=== PATIENT | male | born 1965 | race Caucasian/White ===

== ENCOUNTER 2020-01-06 09:45 | Outpatient (REF) | payer BC, SELFPAY ==
[2020-01-06 14:12] LABS: Abs Immature Grans 0.02 k/cumm (0.0-0.09); Absolute Basophil Count 0.04 k/cumm (0.0-0.2); Absolute Eosinophil Count 0.26 k/cumm (0.0-0.7); Absolute Lymphocyte Count 2.54 k/cumm (1.2-3.4); Absolute Monocyte Count 1.03 k/cumm (0.11-0.7); Basophils % 0.5; Eosinophils % 3.4; HCT 47.2 % (40.0-50.0); HGB 16.1 g/dL (13.5-17.5); Immature Grans % 0.3 %; Lymphocytes % 33.5; Mean Corp. HGB Concentration 34.1 g/dL (32.0-36.0); Mean Corpuscular Hemoglobin 31.7 pg (27.0-33.0); Mean Corpuscular Volume 92.9 fL (80-95); Mean Platelet Volume 11.3 fL (8.0-11.0); Monocytes % 13.6; Neutrophils % 48.7; Platelet Count 273 x1000/uL (130-400); RBC 5.08 m/cumm (4.50-6.00); RBC Distribution Width 12.7 % (11.8-14.1); White Blood Cell Count 7.59 k/cumm (4.4-10.8)
[2020-01-06 14:31] LABS: ALT 49 U/L (16-63); AST 25 U/L (15-37); Albumin 4.1 g/dL (3.4-5.0); Alkaline Phosphatase 61 U/L (46-116); BUN 13 mg/dL (7-18); Bilirubin, Total 0.4 mg/dL (0.2-1.0); Calcium 9.3 mg/dL (8.5-10.1); Calculated LDL 181 mg/dL (<100); Chloride 106 mmol/L (98-107); Cholesterol 249 mg/dL (<200); Glucose 91 mg/dL (74-106); HDL Cholesterol 39 mg/dL (40-60); Magnesium 2.1 mg/dL (1.8-2.4); Potassium 4.2 mmol/L (3.5-5.1); Sodium 139 mmol/L (136-145); TSH (W/Ref FT4) 2.12 uIU/mL (0.36-3.74); Total Protein 7.7 g/dL (6.4-8.2); Triglyceride 146 mg/dL (<150)
[2020-01-06 15:04] LABS: COMMENT (LAB VIEW ONLY) 244.64 mg/dL
[2020-01-06 15:17] LABS: Microalb ug/mg Crea 104.5 ug/mg Cr
[2020-01-07 14:30] LABS: COVID-19 RT-PCR UVMMC Result Negative (Negative)
== END 2020-01-06 10:05 ==
LOC: NCHCN 09:45
PROVIDERS: PCP Nurse Practitioner; Visit Provider Nurse Practitioner Family
DX: I10 Essential (primary) hypertension (principal); R06.09 Other forms of dyspnea; R68.89 Other general symptoms and signs; Z11.59 Encounter for screening for other viral diseases
CPT/HCPCS: 80053; 80061; U0003; 82043; 82570; 83735; 84443; 85025

== ENCOUNTER 2020-01-16 00:45 | Outpatient (CLI) | payer BC, SELFPAY ==
--- NOTE | 2020-01-16 | DI.US_ITS ---
APPROVED REPORT EXAM: Comprehensive 2D, Doppler, and color-flow Echocardiogram Patient Location: Out-Patient Hand Mica Plate Layer: Malena Solano RDCS (AE) Indications: Dyspnea, Abnormal EKG Echo Enhancing Agent Indication: Rule out thrombus Agent(s) / Amount(s) Used: Definity 1.5 cc Other Information Study Quality: Adequate Conclusion Left Ventricle : The left ventricle is normal size. Left ventricular systolic function is moderately decreased. There is global hypokinesis. There is normal left ventricular wall thickness. Diastolic function was not fully evaluated. LVEF is 39%. There is no evidence of apical thrombus with Definity. Right Ventricle : The right ventricle is normal size. The right ventricular systolic function is norm al. The RVSP is 24.3mmHg. Atria : The left atrium size is normal. The right atrium size is normal. Aortic Valve : Aortic valve is trileaflet. There is no aortic valvular stenosis. Trace to mild aortic regurgitation. Mitral Valve : The mitral valve is normal in structure. No evidence of mitral valve stenosis. Mild mi tral regurgitation. Please see remainder of study for further details. Compared to echocardiogram from March 2015: The patient's ejection fraction has decreased from marquise l to moderately reduced. Wall motion Left Ventricle The left ventricle is normal size. Left ventricular systolic function is moderately decreased. There is normal left ventricular wall thickness. There is global hypokinesis. Diastolic function was not fu lly evaluated. There is no ventricular septal defect visualized. There is no evidence of apical throm bus with Definity. LVEF is 39%. Right Ventricle The right ventricle is normal size. The right ventricular systolic function is normal. The RVSP is 24 .3mmHg. Atria The left atrium size is normal. The right atrium size is normal. The interatrial septum is intact wit h no evidence for an atrial septal defect. Aortic Valve Aortic valve is trileaflet. There is no aortic valvular stenosis. Trace to mild aortic regurgitation. Mitral Valve The mitral valve is normal in structure. No evidence of mitral valve stenosis. Mild mitral regurgitat ion. Tricuspid Valve The tricuspid valve is normal in structure. There is no tricuspid valve stenosis. Trace tricuspid reg urgitation. Pulmonic Valve The pulmonary valve is normal in structure. There is no pulmonic valvular stenosis. Trace pulmonic re gurgitation. Great Vessels The aortic root is normal in size. The ascending aorta is normal in size. Not well visualized Pericardium There is no pericardial effusion. 2D Dimensions IVSD d PLAX 1.13 cm M: 0.6-1.2 LV Vol A2C d MOD 151.0 mL LVPW d PLAX 1.12 cm M: 0.6 - 1.2 LV Vol A4C d MOD 209.8 mL LVID d PLAX 5.48 cm M: 4.2 - 5.8 LA vol/ BSA A2C s A-L 23.7 mL/m2 LVDs 4.65 cm M: 2.5 - 4.0 LA vol/ BSA A4C s A-L 23.5 mL/m2 Ao Root d 2.53 cm M: 3.1 - 3.7 LA Vol/ BSA Biplane s A-L 23.8 mL/m2 RA Area A4C 13.38 cm2 LA Area A4C s MOD 18.27 cm2 RA Vol/ BSA A4C s A-L 14.0 mL/m2 LA Area A2C s MOD 18.45 cm2 Ao Asc Diam d 3.21 cm M: 2.6 - 3.4 LV EF A4C MOD 39.8 % LV EF Teichholz 30.3 % LV EF A2C MOD 39.1 % LVEF (Erwin's) 41.52 % M: 52 - 72 LV EF Biplane MOD 41.5 % LV Volume 131.76 mL M: 62 - 150 SV 76.91 mL LV Volume Index 55.83 mL/m2 M: 34 - 74 SV Index 32.51 mL/m2 LV Vol Biplane MOD 185.2 mL FS 14.40 % LV Diastology E/A Ratio 0.8 MV E Vmax 0.73 (0.4-1.3 m/s) MV A Vmax 0.95 (0.4-1.3 m/s) MV E/A Ratio 0.74 Aortic Valve LVOT Area 2.94 cm2 AoV Area Vmax 2.79 cm2 LVOT Vmax 0.98 m/s AoV Area/ BSA (Vmax) 1.18 cm2/m2 LVOT Mean Mario. 0.63 m/s INGRID Mean Mario. 2.37 cm2 LVOT Peak Grad 3.8 mmHg INGRID Mean Mario. Index 1.00 cm2/m2 LVOT Mean Grad 1.9 mmHg AR DT 992 msec LVOT VTI 0.156 m AR PHT 288 msec LVOT Diam s 1.90 cm AoV Vmax 1.03 m/s Velocity Ratio 0.95 AoV Mean Mario. 0.78 m/s AoV Peak Grad 4.3 mmHg LVOT SV 45.91 mL AoV Mean Grad 2.6 mmHg AoV VTI 0.163 m AoV Area VTI 2.82 cm2 AoV Area/ BSA (VTI) 1.19 cm/m2 Mitral Valve MV DT 147 (160-240 msec) MR Vmax 5.45 m/s MV PHT 43 msec MR VTI 1.671 m MV Area PHT 5.15 cm2 MR Peak Grad 118.9 mmHg MR Mean Grad 82.0 mmHg MR PISA Radius 0.40 cm MR EROA 0.06 cm2 MR Aliasing Velocity 0.35 m/s MR PISA 1.00 cm2 Pulmonary Valve PV Vmax 0.92 (0.5-1.5 m/s) RVOT Peak Gr. 1.53 mmHg PV Peak Grad 3.4 mmHg RVOT Mean Gr. 0.75 mmHg PV Mean Grad 1.8 mmHg RVOT VTI 0.100 m PV VTI 0.156 m RVOT Vmax 0.62 m/s Tricuspid Valve TR Peak Grad 21.2 mmHg TR Vmax 2.31 m/s RA Pressure 3.00 mmHg RVSP (TR) 24.3 mmHg
--- NOTE | 2020-01-16 09:00 | ETT_ITS ---
APPROVED REPORT Exam: Exercise Treadmill Patient Location: Out-Patient Room/Bed: Stress Nurse: Dina Guerrero RN BMI: 32.97 Baseline Rhythm: Sinus Rhythm Indications: Patient reports mild chest ???tightness??? with activity associated with right arm numbn ess over the last 6 months, nocturnal dyspnea and shortness of breath with activity over the last thu. Medical History Medical History: GERD, Castellon???s Esophagus, Cardiac Medications: Losartan/Hydrochlorothiazide, Aspirin, Amlodipine. Allergies: Penicillin. Cardiac Risk Factors: FHX of CAD, HTN, Hyperlipidemia Previous Cardiac Procedures: None Pretest Chest Pain Characteristics: None Exercise History: Physically active Physical Disabilities: None Lung Sounds: Clear to auscultation Heart Sounds: Irregular Stress Test Details Test: Exercise stress testing was performed using a Raffi protocol. Rest Stress HR Resting HR Supine: 88 bpm Max Heart Rate (APMHR): 164 bpm Resting HR Standin bpm Target HR (85% APMHR): 139 bpm Max HR Achieved: 146 bpm % of APMHR: 89 HR response to stress: Normal HR response to stress BP Resting BP Supine: 158/102 mmHg Resting BP Standin/106 mmHg Max BP: 194/100. mmHg BP response to stress: Normal blood pressure response to stress. ECG Resting ECG: Sinus Rhythm Ectopy: Frequent PVC's Stress ECG: Sinus Tachycardia ST Change: Normal Arrhythmia: VPC's Recovery ECG: Sinus Rhythm Recovery ST Change: Normal Recovery Arrhythmia: VPC Clinical Reason for Termination: Fatigue, Dyspnea Stress Symptoms: None reported per patient. Exercise duration: 8 min1 sec Highest Stage Reached: Stage 3: 3.4 mph at 14% grade. Exercise capacity: 10.16 METs Functional Capacity: Average Capacity Stress ECG Conclusion 1. Patient exercised for 8 minutes. 10 METS. Rate-pressure product was 25,000. 2. Patient no symptoms suggestive of ischemia. Patient had frequent PVCs at baseline which continued through exercise and recovery. 3. There were no ST changes suggestive of ischemia during the exercise portion of this exam. 4. The Campos Score (8) estimates an annual cardiovascular mortality of 0% and a five year survival of 95%. Using the Campos Score there is a low probability of any angiographic coronary disease. Stress Test Summary STAGE Time (mins) Speed (mph) Grade (%) HR BP SYMPTOMS METS Supine 88 158/102 Standing 101 156/106 1 3 1.7 10 126 162/110 4.6 2 6 2.5 12 138 172/112 7 1 min recovery 130 194/100 3 min recovery 111 180/104 6 min recovery 104 166/100
[2020-01-16] MEDS: Perflutren Lipid Microspheres 1.5 ML VIAL IVP (15:20)
[2020-01-16] MEDS: Normal Saline Flush 10 ML SYR 8 ML IVP (15:22)
== END 2020-01-16 01:05 ==
PROVIDERS: PCP Nurse Practitioner Family; Visit Provider Nurse Practitioner Family
DX: R06.09 Other forms of dyspnea (principal); R07.89 Other chest pain; R94.31 Abnormal electrocardiogram [ECG] [EKG]; I10 Essential (primary) hypertension; R06.02 Shortness of breath; E78.5 Hyperlipidemia, unspecified; I49.3 Ventricular premature depolarization; I35.1 Nonrheumatic aortic (valve) insufficiency; Z82.49 Family history of ischemic heart disease and other diseases of the circulatory system
CPT/HCPCS: C8929; 93017

== ENCOUNTER 2020-02-06 09:00 | Outpatient (REF) | payer BC, SELFPAY ==
[2020-02-06 16:41] LABS: Anion Gap 10.9 mmol/L (3-11); BUN 20 mg/dL (7-18); CO2 26.1 mmol/L (21.0-32.0); CREATININE 1.05 mg/dL (0.70-1.30); Calcium 9.7 mg/dL (8.5-10.1); Chloride 103 mmol/L (98-107); Glucose 85 mg/dL (74-106); Potassium 4.1 mmol/L (3.5-5.1); Sodium 140 mmol/L (136-145)
[2020-02-06 17:21] LABS: Hemoglobin A1C 5.5 % (3.8-5.6)
== END 2020-02-06 09:20 ==
LOC: NCHCN 09:00
PROVIDERS: PCP Nurse Practitioner Family; Visit Provider Nurse Practitioner Family
DX: R73.03 Prediabetes (principal); I50.9 Heart failure, unspecified; I10 Essential (primary) hypertension; F10.10 Alcohol abuse, uncomplicated
CPT/HCPCS: 80048; 83036

== ENCOUNTER 2020-02-10 01:57 | Outpatient (CLI) | payer BC, SELFPAY ==
--- NOTE | 2020-03-15 10:29 | ZIOP_ITS ---
Date of service: 03/15/20 Time of Service: 10:29 ZIO Patch Animal Pathologist Referring Provider:: Reagan Indications:: PVCs Note: This is a 12-day event monitor ordered for indication of PVCs. ?The patient was in normal sinus rhythm for the majority of the recording with an average heart rate of 87 bpm. ?There were rare isolated supraventricular ectopic beats. ?There were frequent (12%) ventricular ectopic beats. ?There were no episodes of ventricular tachycardia, no episodes of atrial fibrillation, no pauses grade 3 seconds and no evidence of high degree heart block. ?Patient triggered events were associated with sinus rhythm and ventricular ectopic beats.
== END 2020-02-10 02:17 ==
PROVIDERS: PCP Nurse Practitioner Family; Visit Provider Internal Medicine Cardiovascular Disease
DX: I49.3 Ventricular premature depolarization (principal)
CPT/HCPCS: 0296T

== ENCOUNTER 2020-03-03 00:54 | Emergency (ER) | payer BC, SELFPAY ==
[2020-03-03] VITALS (39 sets, daily range): BP systolic 109–144; BP diastolic 66–89; PULSE 70–100; RESP 13–20; TEMP 36.3; O2SAT 88–98
--- NOTE | 2020-03-03 00:45 | RT.EKG_ITS ---
APPROVED REPORT Exam: Resting ECG Patient Location: E HR:88 bpm ECG Measurements Heart Rate 88 AXIS WY 230 P 72 QRSd 112 QRS -20 QT 408 T 74 QTc 493 <Conclusion> EKG 00: 59 Rate 88, sinus rhythm, notable PVCs, no significant ST elevations or depressions, no evidence of STEM I
--- NOTE | 2020-03-03 00:47 | W.ED.GENAD ---
Discharge Plan Disposition Patient Disposition: HOME Condition: Stable Discharge Details Chief Complaint: Abd Prob Clinical Impression: Alcohol abuse, Acute alcohol intoxication Primary Care Provider: Edu Silverio ED Provider: Saqib August Home Meds and New Rx's Prescriptions: Continued cyclobenzaprine 10 mg tablet 10 mg PO BID MDD 3 Qty: 180 RF: 4 hydrochlorothiazide 25 mg tablet 25 mg PO DAILY RF: 0 simvastatin 40 mg tablet 40 mg PO QHS RF: 0 losartan 100 mg tablet 100 mg PO DAILY RF: 0 aspirin [Aspir-81] 81 mg tablet,delayed release (DR/EC) 81 mg PO DAILY RF: 0 metoprolol succinate 50 mg tablet extended release 24 hr 50 mg PO .nightly Qty: 90 RF: 6 acetaminophen 500 MG tablet 1,000 mg PO Q8H PRN Qty: 90 RF: 0 Discharge Instructions Instructions: Alcohol Intoxication (ED), Abuse of Alcohol (ED) Additional Instructions: At this time the patient's CT scans of his head and chest are reassuring, the repeat cardiac markers show no signs of heart attack. There is no signs of pneumonia in his lungs. I suspect in hindsight now that his symptoms were likely all from his alcohol intake. Recommend plenty of fluids, rest, and a gradual decrease in regular alcohol use. If you notice any worsening of your symptoms, or any new symptoms such as vomiting, diarrhea, fever, chills, shortness of breath, chest pain, numbness, weakness, or fainting , please return immediately to the emergency department for reevaluation. Please follow up with your primary care provider as soon as possible for reassessment and reevaluation. As always, it was a pleasure participating in your medical care today. Referrals: Edu Silverio, MEDICAL PHYSICIST [Primary Care Provider] - Medical Decision Making 54-year-old male with a history of cardiomyopathy of unknown etiology, EF in the 40s, hypertension, and chronic alcoholism per , presents today via calyx for evaluation of chest pain altered mental status. Per the patient had quite a few drinks of red wine this evening, and then as the patient was coming to bed he fell out of bed, and evaluated him she did notice a carotid pulse, but was uncertain if he was breathing. 911 recommended that she begin CPR, states that the patient was notably resistant to the CPR and told her to stop, at which point she noticed that he was breathing again. EMS arrived and noted normal vital signs, and an intoxicated male. He was drifting in and out of normal consciousness which EMS attributed to intoxication. EMS also states that during the trip over the patient did complain of chest pain. He vomited upon arrival to the ED. Patient has no complaints at this time, and does appear intoxicated. No other complaints at this time. No other modifying factors. denies any recent homicidal or suicidal claims, any changes in medication or other abnormalities. Physical exam demonstrates no focal neurologic deficits, midline C-spine pain, or other abnormalities. He does appear notably intoxicated though. Due to the patient's fall out of bed, albeit with no other signs of trauma we will get a CT scan of his head neck, and evaluate for acute chest pathology as well as cardiac etiologies. I do suspect that the patient's episode is likely secondary to notable intoxication, however I do feel that life-threatening etiologies do need to be evaluated and ruled out at this time. We will evaluate for signs of heart failure with proBNP. 3:30 AM Patient's laboratory work-up has returned, notably unremarkable, no white count or bandemia. No evidence of significant acidosis. Troponin normal, ammonia and lipase level normal. Alcohol level is 278. proBNP is normal, suggesting no signs of significant heart failure. CT scan of the chest and head is negative for acute process per virtual radiology. No signs of dissection mass bleed or fracture. At this time out of an abundance of precaution we will get a repeat troponin/delta troponin. After which point I do feel that the patient's symptoms are likely secondary to alcohol intoxication rather than a cardiac etiology. His abnormal breathing that his was noting was likely secondary to his notable alcohol intake. Currently he does not show signs of significant toxic alcohol poisoning. We will continue to monitor closely while he is here, but otherwise I feel that with his notably unremarkable work-up and is very stable vital signs of feel he will be appropriate for discharge to his 's care. 4:30 AM Serial troponins are negative, EKG is benign. CT scan is negative for acute process. Signs and symptoms appear clinically consistent at that time with alcohol intoxication, without toxic alcoholism. Patient is returning to his normal baseline per family. This time patient will be discharged home with his . Family is comfortable with plan. Discussed red flags for which to return. Signs and symptoms currently are inconsistent with cardiac arrest, life-threatening respiratory arrest, or other abnormality. I have extensively reviewed the treatment plan and discharge instructions with the patient. I have addressed all patient concerns at this time. The patient was made aware of what symptoms to monitor for that would warrant a return to the emergency department. Discussed the plan with the patient, they demonstrate verbal understanding and agreement with our assessment and plan at this time. EKG 00: 59 Rate 88, sinus rhythm, notable PVCs, no significant ST elevations or depressions, no evidence of STEMI. FINDINGS: Brain: Normal. No hemorrhage. Unremarkable white matter. No mass effect. Ventricles: Normal. No ventriculomegaly. Bones/joints: Unremarkable. No acute fracture. Sinuses: Visualized sinuses are unremarkable. No fluid levels. Mastoid air cells: Visualized mastoid air cells are well aerated. Soft tissues: Unremarkable. IMPRESSION: No acute intracranial abnormality. FINDINGS: Vertebrae: No acute fracture. Normal alignment. C5-C6 and C6-C7 predominant degenerative disk disease and facet arthropathy with neuroforaminal and canal stenosis.. Soft tissues: Unremarkable. Lungs: Lung apices are normal. IMPRESSION: No acute findings. Thank you for allowing us to participate in the care of your patient. Dictated and Authenticated by: Judd Ward MD 03/03/2020 2:32 AM Eastern Time ([place] & [place]) FINDINGS: Pulmonary arteries: Normal. No pulmonary emboli. Aorta: Unremarkable. No aortic aneurysm. No aortic dissection. Lungs: Unremarkable. No consolidation. No masses. Pleural space: Unremarkable. No pneumothorax. No pleural effusion. Heart: Unremarkable. No cardiomegaly. No pericardial effusion. Lymph nodes: Unremarkable. No enlarged lymph nodes. Bones/joints: Unremarkable. No acute fracture. Soft tissues: Unremarkable. IMPRESSION: No acute findings. HPI General Date/Time Provider Initiated Documentation: 03/03/20 00:59. HPI Narrative: 54-year-old male with a history of cardiomyopathy of unknown etiology, EF in the 40s, hypertension, and chronic alcoholism per , presents today via calyx for evaluation of chest pain altered mental status. Per the patient had quite a few drinks of red wine this evening, and then as the patient was coming to bed he fell out of bed, and evaluated him she did notice a carotid pulse, but was uncertain if he was breathing. 911 recommended that she begin CPR, states that the patient was notably resistant to the CPR and told her to stop, at which point she noticed that he was breathing again. EMS arrived and noted normal vital signs, and an intoxicated male. He was drifting in and out of normal consciousness which EMS attributed to intoxication. EMS also states that during the trip over the patient did complain of chest pain. He vomited upon arrival to the ED. Patient has no complaints at this time, and does appear intoxicated. No other complaints at this time. No other modifying factors. denies any recent homicidal or suicidal claims, any changes in medication or other abnormalities. Related Data Home Medications Medication Instructions Recorded Confirmed acetaminophen 1,000 mg PO Q8H PRN #90 tab-cap 05/22/17 03/03/20 cyclobenzaprine 10 mg tablet 10 mg PO BID #180 tab-cap MDD 3 06/10/19 03/03/20 aspirin 81 mg tablet,delayed 81 mg PO DAILY 02/02/20 03/03/20 release hydrochlorothiazide 25 mg tablet 25 mg PO DAILY 02/02/20 03/03/20 losartan 100 mg tablet 100 mg PO DAILY 02/02/20 03/03/20 metoprolol succinate 50 mg 50 mg PO .nightly #90 tab 02/02/20 03/03/20 tablet,extended release 24 hr simvastatin 40 mg tablet 40 mg PO QHS 02/02/20 03/03/20 Previous Rx's Medication Instructions Recorded acetaminophen 1,000 mg PO Q8H PRN #90 tab-cap 05/22/17 cyclobenzaprine 10 mg tablet 10 mg PO BID #180 tab-cap MDD 3 06/10/19 metoprolol succinate 50 mg 50 mg PO .nightly #90 tab 02/02/20 tablet,extended release 24 hr Allergies Allergy/AdvReac Type Severity Reaction Status Date / Time Penicillins AdvReac Severe GI upset Unverified 03/03/20 00:58 Review of Systems All systems reviewed & are unremarkable except as noted in HPI and below PFSH Medical History Castellon's esophagus Chronic prostatitis/chronic pelvic pain syndrome (Acute) GERD (gastroesophageal reflux disease) HLD (hyperlipidemia) HTN (hypertension) Kidney stones (Chronic) Surgical History Cholecystectomy (~1995) cystourethroscopy (03/14/13) [facility] EGD - MAC 2014 Family History Mother No problems noted. Father No problems noted. Social History Smoking/Tobacco Use Status: Never Alcohol Intake: current Alcohol Intake frequency: 3 or more drinks per day Drug use: Never Do you feel safe at home: Yes Do you feel safe in your relationship?: Yes Exam Narrative Exam Narrative: 1.Const: Well-nourished, Well-developed, appearing stated age 2.Eyes: PERRL, no conjunctival injection, and symmetrical lids. 3.ENT: Atraumatic external nose and ears. Moist MM. Neck: Symmetric, trachea midline, No thyromegaly. 4.CVS: +S1/S2, No murmurs or gallops. Peripheral pulses 2+ and equal in all extremities. Brisk capillary refill in all extremities. 5.RESP: Unlabored respiratory effort. Clear to auscultation bilaterally. No wheezes rales or rhonchi 6.GI: Soft, Nontender/Nondistended, No hepatosplenomegaly. No guarding or rebound. 7.MSK: Normocephalic/Atraumatic, Extremities w/o deformity or ttp No cyanosis or clubbing, Normal movement of all extremities 8.Skin: Warm, Dry. No rashes or lesions. 9.Neuro: driver manager II-XII grossly intact. Sensation grossly intact, no focal neurologic deficits. Patient able to move all extremities. No focal neurologic deficits that can be appreciated on exam 10.Psych: (AAO) x3. Intoxicated, GCS 14
[2020-03-03] MEDS: Normal Saline 1,000 ML 200 ML IV (01:05)
[2020-03-03] MEDS: Ondansetron 4 MG/2 ML VIAL IVP (01:06)
[2020-03-03 01:10] LABS: WBC 9.96 10^3/uL (4.4-10.8)
[2020-03-03 01:11] LABS: Abs Immature Grans 0.07 10^3/uL (0.0-0.06); Absolute Basophil Count 0.06 10^3/uL (0.0-0.2); Absolute Eosinophil Count 0.36 10^3/uL (0.0-0.7); Absolute Lymphocyte Count 4.28 10^3/uL (1.2-3.4); Absolute Neutrophil Count 4.19 10^3/uL (1.2-6.7); Basophils % 0.6; Eosinophils % 3.6; HCT 44.3 % (40.0-50.0); HGB 14.8 g/dL (13.5-17.5); Immature Grans % 0.7; MCH 31.1 pg (27.0-33.0); MCHC 33.4 % (32.0-36.0); MCV 93.1 fL (80-95); MPV 10.4 fL (8.0-11.0); Neutrophils % 42.1; Platelet Count 285 10^3/uL (130-400); RBC 4.76 10^6/uL (4.36-5.78); RDW 12.4 % (11.8-14.1); RDW-SD 42.7 fL
[2020-03-03 01:21] LABS: Magnesium 2.1 mg/dL (1.8-2.4)
[2020-03-03 01:22] LABS: Ammonia 17 umol/L (11-32)
[2020-03-03 01:40] LABS: ALT 40 U/L (16-63); AST 23 U/L (15-37); Albumin 3.7 g/dL (3.4-5.0); Alkaline Phosphatase 53 U/L (46-116); Anion Gap 12.6 mmol/L (3-11); BUN 14 mg/dL (7-18); Bilirubin, Total 0.2 mg/dL (0.2-1.0); CO2 24.4 mmol/L (21.0-32.0); CREATININE 0.89 mg/dL (0.70-1.30); Calcium 8.6 mg/dL (8.5-10.1); Chloride 103 mmol/L (98-107); Glucose 117 mg/dL (74-106); Lipase 278 U/L (73-393); NT-proBNP 158 pg/mL (<300); Potassium 3.6 mmol/L (3.5-5.1); Sodium 140 mmol/L (136-145); Total Protein 7.8 g/dL (6.4-8.2)
[2020-03-03 01:41] LABS: Troponin I < 0.05 ng/mL (<0.06)
--- NOTE | 2020-03-03 01:55 | DI.CT_ITS ---
EXAM: CT HEAD CERVICAL SPINE WO CLINICAL HISTORY: fell, intoxicated, hit head TECHNIQUE: COMPARISON: No exams were available for comparison FINDINGS: CT examination cervical spine was performed with multi slice acquisition and multiplanar reconstructi on. There are moderate degenerative changes of the lower cervical spine. No evidence of acute fract ure or dislocation. Tracheolaryngeal structures appear intact. Lung apices are clear. No cervical mass or adenopathy. Noncontrast CT of the head was obtained. Normal appearance of the ventricular system. No evidence o f acute intracranial hemorrhage, mass effect, or midline shift. The orbital and temporal bone struct ures appear intact. No calvarial fracture identified. Visualized mastoid air cells and paranasal si nuses are predominantly clear. IMPRESSION: No evidence of acute cervical spine fracture. No evidence of acute intracranial injury.
--- NOTE | 2020-03-03 02:01 | DI.CT_ITS ---
EXAM: CT THORAX CTA CLINICAL HISTORY: altered, syncope, chest pain, r/o dissection TECHNIQUE: COMPARISON: CT ABD/PELVIS WO W CONTRAST from 02/02/2018 FINDINGS: CT angiography chest was performed with bolus infusion of 100 cc of Omnipaque 350. There is marked hepatomegaly and hepatic steatosis. Spleen is grossly unremarkable. No evidence of pulmonary embolic disease as visualized. No thoracic aortic injury. Tracheobronchial tree appears intact. Poor visualization of pulmonary parenchyma due to patient motion, mild scarrin g and/or atelectasis may be present, no pneumothorax or contusion. No mediastinal or hilar adenopathy. IMPRESSION: No evidence of acute intrathoracic process.
[2020-03-03] MEDS: Omnipaque 350 MG/ML 100 ML BTL IJ (02:26)
[2020-03-03] MEDS: Normal Saline Flush 10 ML SYR IVP (02:26)
[2020-03-03] MEDS: Normal Saline - Diluent 50 ML VIAL IV (02:26)
--- NOTE | 2020-03-03 02:30 | DI.VRAD_ITS ---
PROCEDURE INFORMATION: Exam: CT Angiography Chest With Contrast Exam date and time: 03/03/2020 1:01 AM Age: 54 years old Clinical indication: Injury or trauma; Initial encounter; Blunt trauma (contusions or hematomas); Injury date: 03/03/20; Injury details: Fall at home TECHNIQUE: Imaging protocol: Computed tomographic angiography of the chest with intravenous contrast. 3D rendering: MIP and/or 3D reconstructed images were created by the technologist. Radiation optimization: All CT scans at this facility use at least one of these dose optimization techniques: automated exposure control; mA and/or kV adjustment per patient size (includes targeted exams where dose is matched to clinical indication); or iterative reconstruction. Contrast material: [id number]; Contrast volume: 100 ml; Contrast route: INTRAVENOUS (IV); COMPARISON: CT CHEST WITH CONTRAST 02/22/2015 2:52 PM FINDINGS: Pulmonary arteries: Normal. No pulmonary emboli. Aorta: Unremarkable. No aortic aneurysm. No aortic dissection. Lungs: Unremarkable. No consolidation. No masses. Pleural space: Unremarkable. No pneumothorax. No pleural effusion. Heart: Unremarkable. No cardiomegaly. No pericardial effusion. Lymph nodes: Unremarkable. No enlarged lymph nodes. Bones/joints: Unremarkable. No acute fracture. Soft tissues: Unremarkable. IMPRESSION: No acute findings. Dictated and Authenticated by: Judd Ward MD. Ordering:LADARIUS Cerrato MD
--- NOTE | 2020-03-03 02:32 | DI.VRAD_ITS ---
PROCEDURE INFORMATION: Exam: CT Head Without Contrast Exam date and time: 03/03/2020 1:01 AM Age: 54 years old Clinical indication: Injury or trauma; Initial encounter; Blunt trauma (contusions or hematomas); With loss of consciousness; Not specified; Injury date: 03/03/20; Injury details: Fall at home, hit head, altered TECHNIQUE: Imaging protocol: Computed tomography of the head without contrast. Radiation optimization: All CT scans at this facility use at least one of these dose optimization techniques: automated exposure control; mA and/or kV adjustment per patient size (includes targeted exams where dose is matched to clinical indication); or iterative reconstruction. COMPARISON: No relevant prior studies available. FINDINGS: Brain: Normal. No hemorrhage. Unremarkable white matter. No mass effect. Ventricles: Normal. No ventriculomegaly. Bones/joints: Unremarkable. No acute fracture. Sinuses: Visualized sinuses are unremarkable. No fluid levels. Mastoid air cells: Visualized mastoid air cells are well aerated. Soft tissues: Unremarkable. IMPRESSION: No acute intracranial abnormality. PROCEDURE INFORMATION: Exam: CT Cervical Spine Without Contrast Exam date and time: 03/03/2020 1:01 AM Age: 54 years old Clinical indication: Injury or trauma; Initial encounter; Blunt trauma (contusions or hematomas); With loss of consciousness; Not specified; Injury date: 03/03/20; Injury details: Fall at home, hit head, altered TECHNIQUE: Imaging protocol: Computed tomography images of the cervical spine without contrast. Radiation optimization: All CT scans at this facility use at least one of these dose optimization techniques: automated exposure control; mA and/or kV adjustment per patient size (includes targeted exams where dose is matched to clinical indication); or iterative reconstruction. COMPARISON: No relevant prior studies available. FINDINGS: Vertebrae: No acute fracture. Normal alignment. C5-C6 and C6-C7 predominant degenerative disk disease and facet arthropathy with neuroforaminal and canal stenosis.. Soft tissues: Unremarkable. Lungs: Lung apices are normal. IMPRESSION: No acute findings. Dictated and Authenticated by: Judd Ward MD. Ordering:LADARIUS Cerrato MD
[2020-03-03 04:27] LABS: Troponin I < 0.05 ng/mL (<0.06)
== END 2020-03-03 04:45 | disposition home or self-care (01) ==
LOC: ER 03:46
PROVIDERS: Emergency Provider Student in an Organized Health Care Education/Training Program; PCP Nurse Practitioner Family
DX: F10.120 Alcohol abuse with intoxication, uncomplicated (principal); Y90.8 Blood alcohol level of 240 mg/100 ml or more; R07.9 Chest pain, unspecified; I10 Essential (primary) hypertension; I42.9 Cardiomyopathy, unspecified
CPT/HCPCS: 36415; 71275; 80053; 83690; 93005; 96361; 96374; 99285; 70450; 72125; 80320; 81003; 82140; 83735; 83880; 84484; 85025; 93010; J2405; J3490

== ENCOUNTER 2020-06-04 18:00 | Outpatient (REF) | payer BC, SELFPAY ==
[2020-06-07 12:47] LABS: PSA, Diagnostic 0.3 ng/ml (0-3.5)
== END 2020-06-04 18:20 ==
LOC: LBN 18:00
PROVIDERS: PCP Nurse Practitioner Family; Visit Provider Urology
DX: N41.1 Chronic prostatitis (principal); R10.2 Pelvic and perineal pain
CPT/HCPCS: 84153

== ENCOUNTER 2020-06-05 01:32 | Outpatient (CLI) | payer BC, SELFPAY ==
--- NOTE | 2020-06-05 07:31 | DI.US_ITS ---
APPROVED REPORT EXAM: Comprehensive 2D, Doppler, and color-flow Echocardiogram Patient Location: Out-Patient Clerk General Office: Malena Solano RDCS (AE) Indications: Cardiomyopathy Other Information Study Quality: Adequate Conclusion Left Ventricle : The left ventricle is normal size. The left ventricular systolic function is mildly reduced. There is normal left ventricular wall thickness. There is discrete upper septal wall thicke edwige. There is normal LV segmental wall motion. The left ventricular diastolic function is normal. LVEF is 45-50%. Right Ventricle : The right ventricle is normal size. The right ventricular systolic function is norm al. The RVSP is 15.3 mmHg. Atria : The left atrium size is normal. The right atrium size is normal. Valves: There are no hemodynamically significant valvular lesions Great Vessels : The aortic root is normal in size. The ascending aorta is normal in size. Aortic arch is normal in caliber. IVC is normal in size and collapses >50% with inspiration. Compared to study from 01/16/2020, patient's ejection fraction has increased slightly from 40% to 45-5 0%. Wall motion Left Ventricle The left ventricle is normal size. The left ventricular systolic function is mildly reduced. There is normal left ventricular wall thickness. There is discrete upper septal wall thickening. There is nor mal LV segmental wall motion. The left ventricular diastolic function is normal. There is no ventricu lar septal defect visualized. LVEF is 45-50%. Right Ventricle The right ventricle is normal size. The right ventricular systolic function is normal. The RVSP is 15 .3 mmHg. Atria The left atrium size is normal. The right atrium size is normal. The interatrial septum is intact wit h no evidence for an atrial septal defect. Aortic Valve The aortic valve is normal in structure. Aortic valve is trileaflet. There is no aortic valvular sten osis. Trace aortic regurgitation. Mitral Valve The mitral valve is normal in structure. No evidence of mitral valve stenosis. Trace mitral regurgita tion. Tricuspid Valve The tricuspid valve is normal in structure. There is no tricuspid valve stenosis. Trace tricuspid reg urgitation. Pulmonic Valve The pulmonary valve is normal in structure. There is no pulmonic valvular stenosis. Trace pulmonic re gurgitation. Great Vessels The aortic root is normal in size. The ascending aorta is normal in size. Aortic arch is normal in ca liber. IVC is normal in size and collapses >50% with inspiration. Pericardium There is no pericardial effusion. 2D Dimensions IVSD d PLAX 1.15 cm M: 0.6-1.2 LV Vol A2C d MOD 137.2 mL LVPW d PLAX 1.17 cm M: 0.6 - 1.2 LV Vol A4C d MOD 104.4 mL LVID d PLAX 5.39 cm M: 4.2 - 5.8 LA vol/ BSA A2C s A-L 14.3 mL/m2 LVDs 3.80 cm M: 2.5 - 4.0 LA vol/ BSA A4C s A-L 10.7 mL/m2 Ao Root d 2.91 cm M: 3.1 - 3.7 LA Vol/ BSA Biplane s A-L 12.8 mL/m2 RA Area A4C 12.12 cm2 LA Area A4C s MOD 11.52 cm2 RA Vol/ BSA A4C s A-L 11.1 mL/m2 LA Area A2C s MOD 13.76 cm2 Ao Asc Diam d 3.24 cm M: 2.6 - 3.4 LV EF A4C MOD 47.1 % LV EF Teichholz 54.6 % LV EF A2C MOD 50.7 % LVEF (Erwin's) 49.37 % M: 52 - 72 LV EF Biplane MOD 49.4 % LV Volume 86.56 mL M: 62 - 150 SV 59.89 mL LV Volume Index 36.99 mL/m2 M: 34 - 74 SV Index 25.57 mL/m2 LV Vol Biplane MOD 121.3 mL FS 28.55 % M-Mode TAPSE 1.78 cm (M/F) >1.7 LV Diastology MV E' medial 0.058 (>0.07 m/s) E/A Ratio 0.9 LV E/e MED 9.70 (<14) MV E Vmax 0.56 (0.4-1.3 m/s) MV E' lateral 0.082 (>0.1 m/s) MV A Vmax 0.65 (0.4-1.3 m/s) LV E/e LAT 6.80 (<14) MV E/A Ratio 0.81 MV E/E' medial 9.72 MV E/E' lateral 6.83 Aortic Valve LVOT Area 3.21 cm2 AoV Area Vmax 2.30 cm2 LVOT Vmax 0.93 m/s AoV Area/ BSA (Vmax) 0.98 cm2/m2 LVOT Mean Mario. 0.64 m/s INGRID Mean Mario. 2.12 cm2 LVOT Peak Grad 3.5 mmHg INGRID Mean Mario. Index 0.91 cm2/m2 LVOT Mean Grad 1.9 mmHg AR DT 3806 msec LVOT VTI 0.174 m AR PHT 1104 msec LVOT Diam s 2.00 cm AoV Vmax 1.30 m/s Velocity Ratio 0.71 AoV Mean Mario. 0.96 m/s AoV Peak Grad 6.8 mmHg LVOT SV 55.96 mL AoV Mean Grad 4.0 mmHg AoV VTI 0.235 m AoV Area VTI 2.38 cm2 AoV Area/ BSA (VTI) 1.02 cm/m2 Mitral Valve MV DT 333 (160-240 msec) MV PHT 97 msec MV Area PHT 2.28 cm2 Pulmonary Valve PV Vmax 1.30 (0.5-1.5 m/s) RVOT Peak Gr. 1.59 mmHg PV Peak Grad 6.8 mmHg RVOT Mean Gr. 0.80 mmHg PV Mean Grad 2.5 mmHg RVOT VTI 0.127 m PV VTI 0.192 m RVOT Vmax 0.63 m/s Tricuspid Valve TR Peak Grad 12.2 mmHg TR Vmax 1.75 m/s RA Pressure 3.00 mmHg RVSP (TR) 15.3 mmHg
== END 2020-06-05 01:52 ==
PROVIDERS: PCP Nurse Practitioner Family; Visit Provider Internal Medicine Cardiovascular Disease
DX: I42.9 Cardiomyopathy, unspecified (principal)
CPT/HCPCS: 93306

== ENCOUNTER 2020-11-18 22:51 | Emergency (ER) | payer BC, SELFPAY ==
[2020-11-18] VITALS (22 sets, daily range): BP systolic 115–146; BP diastolic 49–80; PULSE 51–112; RESP 11–25; O2SAT 92–98
--- NOTE | 2020-11-18 22:45 | RT.EKG_ITS ---
APPROVED REPORT Exam: Resting ECG Patient Location: E HR:102 bpm ECG Measurements Heart Rate 102 AXIS OR 203 P 25 QRSd 92 QRS -12 QT 354 T 61 QTc 462 Conclusion Sinus tachycardia...rate> 99 Ventricular bigeminy...bigeminy string>4 w/ V complexes Borderline prolonged OR interval...OR >197, V-rate 91-120 Probable left atrial enlargement...P >50mS, <-0.10mV V1 Probable left ventricular hypertrophy...multiple LVH criteria Inferior infarct, old...Q >35mS, II III aVF Physician: No STEMI, multiple PVC's more than normal.
--- NOTE | 2020-11-18 22:45 | DI.RAD_ITS ---
EXAM: XR PORTABLE CHEST AP CLINICAL HISTORY: central chest pain. TECHNIQUE: 2D digital imaging was performed. COMPARISON: CR CHEST 2 VIEWS PA,LAT from 01/13/2015 FINDINGS: Heart size is normal. The mediastinum is not widened. Lungs are clear. No infiltrates nor obvious pleural effusions. IMPRESSION: No acute pulmonary findings on this single AP portable view of the chest. DATA REPOSITORY: RADIATION DOSE DELIVERED: All CT scans at this facility use at least one of these dose optimization techniques: automated exposure control; mA and/or kV adjustment per patient size (includes targeted e xams where dose is matched to clinical indication); or iterative reconstruction.
[2020-11-18] MEDS: Aspirin 81 MG CHEW (23:00)
--- NOTE | 2020-11-18 23:03 | ED.GENADUL_ITS ---
Discharge Plan Disposition Patient Disposition: [facility] Condition: Serious Discharge Details Clinical Impression: Chest pain, Angina at rest Primary Care Provider: Edu Silverio ED Provider: Saqib August Home Meds and New Rx's Prescriptions: No Action metoprolol succinate 100 mg tablet extended release 24 hr 100 mg PO .nightly Qty: 90 RF: 3 spironolactone 25 mg tablet 25 mg PO DAILY Qty: 90 RF: 5 Entresto 97-103 mg tablet 1 tab PO BID Qty: 180 RF: 5 hydrochlorothiazide 25 mg tablet 25 mg PO DAILY RF: 0 simvastatin 40 mg tablet 40 mg PO QHS RF: 0 aspirin [Aspir-81] 81 mg tablet,delayed release (DR/EC) 81 mg PO DAILY RF: 0 cyclobenzaprine 10 mg tablet 10 mg PO BID MDD 3 Qty: 180 RF: 4 acetaminophen 500 MG tablet 1,000 mg PO Q8H PRN Qty: 90 RF: 0 sertraline 50 mg tablet 50 mg PO DAILY RF: 0 omeprazole 20 mg Tablet,Delayed Release (Dr/Ec) 20 mg PO DAILY RF: 0 Entresto 97-103 mg tablet 97 - 103 tab PO DAILY RF: 0 Medical Decision Making 55-year-old male with a past medical history of cardiomyopathy with an EF around 40%, unknown etiology per cardiology but concerning for potential alcohol relation, hypertension, chronic alcoholism, high cholesterol, GERD, presents today for evaluation of chest pain. Patient states that for the last 1 to 2 hours he has had initially burning in his chest which then transition to a tightness in his central chest. Seems to radiate up his neck and to his arms. He denies any tearing or ripping sensation. He describes the tightness as a heaviness sitting down on his chest. He denies any recent trauma or exertional component. Denies PE risk factors such as recent long car rides, immobilization, recent surgery, prior history of DVT or PE, family history of PE or DVT, morbid obesity, exogenous estrogen and smoking, hemoptysis, history of cancer. He does have a strong family history of cardiac disease though. He does not take any Viagra or sildenafil. He has no other complaints at this time. No other modifying factors. Physical exam is relatively unremarkable, vital signs stable. EKG demonstrates notable increase in PVCs compared to his normal. No evidence of STEMI though. Symptoms are concerning for cardiac etiology. Will give aspirin and nitroglycerin. Will evaluate for other concerning etiologies. Symptoms appearing inconsistent with dissection or PE at this time though 1:04 AM Laboratory work-up is returned, initial troponin is normal, labs renal function and electrolytes are all normal. proBNP is normal suggesting no cardiac strain. Chest x-ray unremarkable per virtual radiology. EKG shows notable PVCs, but no STEMI. Patient was given 3 nitroglycerin which brought his pain down to a 1, but shortly thereafter his pain came right back. He was started on a nitro drip his pain has been well managed now at 100 mics. We did contact [facility], but they are not currently accepting any patients for admission. We did reach out to the [facility] and I spoke with Dr. Fine, the case was discussed together and he agrees with the assessment and plan and recommends transfer. He does recommend heparinizing but holding on a Plavix load. We will heparinize the patient in transfer via EMS. Still pending repeat troponin at this time. Patient remains hemodynamically stable. Also of note the patient now brings up that he has had intermittent chest pain that seems to be coming more frequent over the last few months. I have extensively reviewed the treatment plan with the patient. I have addressed all patient concerns at this time. I have also discussed the plan with the admitting physician and they agree with the current assessment and plan and have agreed to assume responsibility for the patient. All parties demonstrate verbal understanding and agreement with our assessment and plan at this time. The documentation in this chart was dictated using [employer] dictation software. Please excuse any dictation errors. At time of transfer the patient was reassessed and continued to demonstrate current medical stability. No signs of acute respiratory distress requiring intubation, hemodynamic instability requiring pressor support, or rapidly declining mental status. The patient is stable for transport. FINDINGS: Lungs: Unremarkable. No consolidation. Pleural spaces: Unremarkable. No pleural effusion. No pneumothorax. Heart/Mediastinum: Unremarkable. No cardiomegaly. Bones/joints: Unremarkable. IMPRESSION: No acute abnormality. Thank you for allowing us to participate in the care of your patient. Dictated and Authenticated by: Juan Antonio Guerrero MD 11/19/2020 12:13 AM Eastern Time ([place] & [place]) HPI General Date/Time Provider Initiated Documentation: 11/18/20 22:52 . HPI Narrative: 55-year-old male with a past medical history of cardiomyopathy with an EF around 40%, unknown etiology per cardiology but concerning for potential alcohol relation, hypertension, chronic alcoholism, high cholesterol, GERD, presents today for evaluation of chest pain. Patient states that for the last 1 to 2 hours he has had initially burning in his chest which then transition to a tightness in his central chest. Seems to radiate up his neck and to his arms. He denies any tearing or ripping sensation. He describes the tightness as a heaviness sitting down on his chest. He denies any recent trauma or exertional component. Denies PE risk factors such as recent long car rides, immobilization, recent surgery, prior history of DVT or PE, family history of PE or DVT, morbid obesity, exogenous estrogen and smoking, hemoptysis, history of cancer. He does have a strong family history of cardiac disease though. He does not take any Viagra or sildenafil. He has no other complaints at this time. No other modifying factors. Related Data Home Medications Medication Instructions Recorded Confirmed acetaminophen 1,000 mg PO Q8H PRN #90 tab-cap 05/22/17 11/18/20 aspirin 81 mg tablet,delayed 81 mg PO DAILY 02/02/20 11/18/20 release hydrochlorothiazide 25 mg tablet 25 mg PO DAILY 02/02/20 11/18/20 simvastatin 40 mg tablet 40 mg PO QHS 02/02/20 11/18/20 metoprolol succinate 100 mg 100 mg PO .nightly #90 tab 03/12/20 11/18/20 tablet,extended release 24 hr spironolactone 25 mg tablet 25 mg PO DAILY #90 tab 03/12/20 11/18/20 sacubitril 97 mg-valsartan 103 mg 1 tab PO BID #180 tab 04/13/20 11/18/20 tablet cyclobenzaprine 10 mg tablet 10 mg PO BID #180 tab-cap MDD 3 06/04/20 11/18/20 omeprazole 20 mg PO DAILY 11/18/20 11/18/20 sacubitril-valsartan [Entresto] 97 - 103 tab PO DAILY 11/18/20 11/18/20 sertraline 50 mg PO DAILY 11/18/20 11/18/20 Previous Rx's Medication Instructions Recorded acetaminophen 1,000 mg PO Q8H PRN #90 tab-cap 05/22/17 metoprolol succinate 100 mg 100 mg PO .nightly #90 tab 03/12/20 tablet,extended release 24 hr spironolactone 25 mg tablet 25 mg PO DAILY #90 tab 03/12/20 sacubitril 97 mg-valsartan 103 mg 1 tab PO BID #180 tab 04/13/20 tablet cyclobenzaprine 10 mg tablet 10 mg PO BID #180 tab-cap MDD 3 06/04/20 Allergies Allergy/AdvReac Type Severity Reaction Status Date / Time Penicillins AdvReac Severe GI upset Verified 11/18/20 23:40 General Stated Complaint: Chest Pain SHEKHAR: 2 Review of Systems All systems reviewed & are unremarkable except as noted in HPI and below [facility] Medical History (Updated 11/19/20 @ 01:09 by Saqib August DO) Castellon's esophagus Chronic prostatitis/chronic pelvic pain syndrome GERD (gastroesophageal reflux disease) HLD (hyperlipidemia) HTN (hypertension) Kidney stones Surgical History Cholecystectomy (~1995) cystourethroscopy (03/14/13) [facility] EGD - MAC 2013 Family History Mother No problems noted. Father No problems noted. Social History Smoking/Tobacco Use Status: Never Smoking risk assessment performed?: Yes Alcohol Intake: current Alcohol Intake frequency: 3 or more drinks per day [place] hol type: wine Drug use: Never Do you feel safe at home: Yes Do you feel safe in your relationship?: Yes Exam Narrative Exam Narrative: 1.Const: Well-nourished, Well-developed, appearing stated age 2.Eyes: PERRL, no conjunctival injection, and symmetrical lids. 3.ENT: Atraumatic external nose and ears. Moist MM. Neck: Symmetric, trachea midline, No thyromegaly. 4.CVS: +S1/S2, No murmurs or gallops. Peripheral pulses 2+ and equal in all extremities. Brisk capillary refill in all extremities. Radial pulses dorsalis pedis pulses +2 bilaterally. No pulse deficit or different 5.RESP: Unlabored respiratory effort. Clear to auscultation bilaterally. No wheezes rales or rhonchi 6.GI: Soft, Nontender/Nondistended, No hepatosplenomegaly. No guarding or rebound. 7.MSK: Normocephalic/Atraumatic, Extremities w/o deformity or ttp No cyanosis or clubbing, Normal movement of all extremities 8.Skin: Warm, Dry. No rashes or lesions. 9.Neuro: reading efficiency course director II-XII grossly intact. Sensation grossly intact, no focal neurologic deficits. 10.Psych: (AAO) x3. Appropriate mood and affect Course Vital Signs Vital signs: Vital Signs Pulse 79 11/18/20 22:54 Respiratory Rate 22 11/18/20 22:54 Pulse Oximetry 97 11/18/20 22:54 Pulse 79 11/18/20 22:54 Respiratory Rate 22 11/18/20 22:54 Respiratory Effort Non-Labored 11/18/20 22:58 Pulse Oximetry 97 11/18/20 22:54 Oxygen Delivery Method Room Air 11/18/20 22:54 Oxygen Flow Rate 0 11/18/20 22:54 Pain Level 8 11/18/20 23:01
[2020-11-18] MEDS: nitroGLYcerin 0.4 MG TAB ×2 (23:08→23:24)
--- NOTE | 2020-11-18 23:13 | NUR.NOTE ---
Nursing Note: after 1st nitro pain 11/10
[2020-11-18 23:15] LABS: Abs Immature Grans 0.07 10^3/uL (0.0-0.06); Absolute Basophil Count 0.06 10^3/uL (0.0-0.2); Absolute Eosinophil Count 0.32 10^3/uL (0.0-0.7); Absolute Lymphocyte Count 3.09 10^3/uL (1.2-3.4); Absolute Monocyte Count 0.91 10^3/uL (0.1-0.8); Absolute Neutrophil Count 4.15 10^3/uL (1.2-6.7); Basophils % 0.7; Eosinophils % 3.7; HCT 44.3 % (40.0-50.0); HGB 14.7 g/dL (13.5-17.5); Immature Grans % 0.8; Lymphocytes % 35.9; MCH 31.9 pg (27.0-33.0); MCHC 33.2 % (32.0-36.0); MCV 96.1 fL (80-95); MPV 10.1 fL (8.0-11.0); Monocytes % 10.6; Neutrophils % 48.3; Nucleated RBC 0 %; Platelet Count 252 10^3/uL (130-400); RBC 4.61 10^6/uL (4.36-5.78); RDW 12.7 % (11.8-14.1); RDW-SD 44.7 fL
--- NOTE | 2020-11-18 23:24 | NUR.NOTE ---
Nursing Note: Prior to 3rd nitro admin, pt reporting pain 6/10.
[2020-11-18 23:29] LABS: PTT Activated 22.8 sec (21.0-27.5); Prothrombin Time 9.9 sec (9.3-11.0)
[2020-11-18 23:35] LABS: ALT 57 U/L (16-63); AST 28 U/L (15-37); Albumin 3.5 g/dL (3.4-5.0); Alkaline Phosphatase 50 U/L (46-116); Anion Gap 8.1 mmol/L (3-11); BUN 13 mg/dL (7-18); Bilirubin, Total 0.3 mg/dL (0.2-1.0); CO2 27.9 mmol/L (21.0-32.0); CREATININE 0.9 mg/dL (0.70-1.30); Calcium 8.8 mg/dL (8.5-10.1); Chloride 104 mmol/L (98-107); Glucose 109 mg/dL (74-106); Magnesium 1.9 mg/dL (1.8-2.4); NT-proBNP 6 pg/mL (<300); Potassium 3.8 mmol/L (3.5-5.1); Sodium 140 mmol/L (136-145); Total Protein 7.5 g/dL (6.4-8.2)
[2020-11-18 23:36] LABS: Troponin I < 0.05 ng/mL (<0.06)
[2020-11-18 23:48] LABS: D-Dimer 328 ng/mlFEU (<500)
[2020-11-19] VITALS (25 sets, daily range): BP systolic 95–125; BP diastolic 44–69; PULSE 51–104; RESP 14–22; O2SAT 90–96
--- NOTE | 2020-11-19 00:14 | DI.VRAD_ITS ---
PROCEDURE INFORMATION: Exam: XR Chest Exam date and time: 11/18/2020 11:51 PM Age: 55 years old Clinical indication: Patient HX: Central chest pain TECHNIQUE: Imaging protocol: XR of the chest. Views: 1 view. COMPARISON: CT THORAX CTA 03/03/2020 1:59 AM FINDINGS: Lungs: Unremarkable. No consolidation. Pleural spaces: Unremarkable. No pleural effusion. No pneumothorax. Heart/Mediastinum: Unremarkable. No cardiomegaly. Bones/joints: Unremarkable. IMPRESSION: No acute abnormality. Dictated and Authenticated by: Juan Antonio Guerrero MD. Ordering:LADARIUS Cerrato MD
[2020-11-19 01:14] LABS: COVID-19 PCR Negative (Negative)
[2020-11-19 01:34] LABS: Troponin I < 0.05 ng/mL (<0.06)
== END 2020-11-19 02:00 ==
PROVIDERS: Emergency Provider Student in an Organized Health Care Education/Training Program; PCP Nurse Practitioner Family
DX: I20.8 Other forms of angina pectoris (principal); I10 Essential (primary) hypertension; R07.89 Other chest pain; I49.3 Ventricular premature depolarization; Z03.818 Encounter for observation for suspected exposure to other biological agents ruled out
CPT/HCPCS: 36415; 80053; 87635; 93005; 96365; 96366; 96372; 96376; 99285; 71045; 83735; 83880; 84484; 85025; 85379; 85610; 85730; 93010

== ENCOUNTER 2021-03-06 07:54 | Outpatient (REF) | payer BC, SELFPAY ==
[2021-03-06 14:30] LABS: Hemoglobin A1C 5.9 % (<5.7)
[2021-03-06 14:31] LABS: ALT 33 U/L (16-63); AST 18 U/L (15-37); Albumin 3.6 g/dL (3.4-5.0); Alkaline Phosphatase 56 U/L (46-116); Anion Gap 9.8 mmol/L (3-11); BUN 17 mg/dL (7-18); Bilirubin, Total 0.3 mg/dL (0.2-1.0); CO2 26.2 mmol/L (21.0-32.0); CREATININE 0.8 mg/dL (0.70-1.30); Calcium 8.7 mg/dL (8.5-10.1); Calculated LDL 108 mg/dL (<100); Chloride 104 mmol/L (98-107); Cholesterol 163 mg/dL (<200); Glucose 99 mg/dL (74-106); HDL Cholesterol 32 mg/dL (40-60); Potassium 4.1 mmol/L (3.5-5.1); Sodium 140 mmol/L (136-145); Total Protein 7.1 g/dL (6.4-8.2); Triglyceride 119 mg/dL (<150)
[2021-03-06 22:45] LABS: PSA, Screening 0.3 ng/mL (0.0-3.5)
[2021-03-10 13:02] LABS: Testosterone, Total 264 ng/dL (240-950)
== END 2021-03-06 07:55 | disposition home or self-care (01) ==
LOC: NCHCN 07:54
PROVIDERS: PCP Nurse Practitioner Family; Visit Provider Physician Assistant
DX: N52.9 Male erectile dysfunction, unspecified (principal); I10 Essential (primary) hypertension; I25.10 Atherosclerotic heart disease of native coronary artery without angina pectoris; R73.03 Prediabetes; Z12.5 Encounter for screening for malignant neoplasm of prostate
CPT/HCPCS: 80053; 80061; 84153; 84403; 83036

== ENCOUNTER 2022-03-27 11:39 | Outpatient (CLI) | payer BC, SELFPAY ==
--- NOTE | 2022-03-27 08:45 | DI.RAD_ITS ---
Exam(s) XR SHOULDER LT COMPLETE 2+V EXAM: XR SHOULDER LT COMPLETE 2+V CLINICAL HISTORY: left shoulder pain TECHNIQUE: COMPARISON: No exams were available for comparison FINDINGS: Two views were obtained. Cartilaginous joint space of the glenohumeral joint appears moderately narr owed. There is soft tissue calcification projected adjacent to the distal supraspinatus tendon consi stent with a calcific peritendinitis. There are mild hypertrophic changes of the AC joint. No other bony or soft tissue abnormality seen. IMPRESSION: Degenerative changes and presumed calcific peritendinitis of supraspinatus. RADIATION DOSE DELIVERED: Total DLP
== END 2022-03-27 11:40 | disposition home or self-care (01) ==
LOC: DIORS 11:40
PROVIDERS: PCP Physician Assistant; Referring Provider Physician Assistant; Visit Provider Student in an Organized Health Care Education/Training Program
DX: S46.012A Strain of muscle(s) and tendon(s) of the rotator cuff of left shoulder, initial encounter (principal); M25.512 Pain in left shoulder; M75.32 Calcific tendinitis of left shoulder
CPT/HCPCS: 73030

== ENCOUNTER 2022-11-24 15:02 | Outpatient (REF) | payer BC, SELFPAY ==
[2022-11-24 15:10] LABS: Hemoglobin A1C 5.8 % (<5.7)
[2022-11-24 15:29] LABS: ALT 37 U/L (16-63); AST 19 U/L (15-37); Albumin 3.8 g/dL (3.4-5.0); Alkaline Phosphatase 53 U/L (46-116); Anion Gap 8.8 mmol/L (3-11); BUN 15 mg/dL (7-18); Bilirubin, Total 0.3 mg/dL (0.2-1.0); CO2 28.2 mmol/L (21.0-32.0); CREATININE 0.9 mg/dL (0.70-1.30); Calcium 9.1 mg/dL (8.5-10.1); Calculated LDL 118 mg/dL (<100); Chloride 102 mmol/L (98-107); Cholesterol 177 mg/dL (<200); Estimated GFR 98.38 (mL/min/1.73m2); Glucose 106 mg/dL (74-106); HDL Cholesterol 41 mg/dL (40-60); Potassium 4.4 mmol/L (3.5-5.1); Sodium 139 mmol/L (136-145); Total Protein 7.6 g/dL (6.4-8.2); Triglyceride 94 mg/dL (<150)
[2022-11-25 01:20] LABS: PSA, Screening 0.3 ng/mL (<=3.5)
== END 2022-11-24 15:03 | disposition home or self-care (01) ==
LOC: NCHCN 15:02
PROVIDERS: PCP Physician Assistant; Visit Provider Physician Assistant
DX: R73.03 Prediabetes (principal); Z12.5 Encounter for screening for malignant neoplasm of prostate; I10 Essential (primary) hypertension
CPT/HCPCS: 80053; 80061; 84153; 83036

== ENCOUNTER 2023-01-20 01:40 | Outpatient (CLI) | payer BC, SELFPAY ==
--- NOTE | 2023-01-20 16:00 | DI.US_ITS ---
APPROVED REPORT EXAM: Comprehensive 2D, Doppler, and color-flow Echocardiogram Patient Location: Out-Patient Technology Development Intern: Malena Solano RDCS ([place]) Indications: Exertional shortness of breath, CAD, Cardiomyopathy Other Information Study Quality: Adequate. Technically limited study due to arrhythmia. Conclusion Normal left ventricular wall thickness and chamber size. Ejection fraction is 60%. Wall motion is n ormal Right ventricle appears grossly normal in size and systolic function Both atria are normal in size There is no structural or hemodynamically significant valvular disease Estimated right ventricular systolic pressure is 18 mmHg Mildly dilated ascending aorta measuring 3.53 cm Wall motion Left Ventricle The left ventricle is normal size. The left ventricular systolic function is normal. The left ventric ular ejection fraction is within the normal range. There is normal left ventricular wall thickness. T here is normal LV segmental wall motion. There is no ventricular septal defect visualized. LVEF is 60 %. Right Ventricle Right ventricle is grossly normal in size. Right ventricular systolic function is grossly normal. The RVSP is 18.3 mmHg. Atria The left atrium size is normal. The right atrium size is normal. The interatrial septum is intact wit h no evidence for an atrial septal defect. Aortic Valve The aortic valve is normal in structure. Aortic valve is trileaflet. There is no aortic valvular sten osis. Trace aortic regurgitation. Mitral Valve The mitral valve is normal in structure. No evidence of mitral valve stenosis. Trace mitral regurgit ation. Tricuspid Valve The tricuspid valve is normal in structure. There is no tricuspid valve stenosis. Trace tricuspid reg urgitation. Pulmonic Valve The pulmonary valve is normal in structure. There is no pulmonic valvular stenosis. Trace pulmonic re gurgitation. Great Vessels The aortic root is normal in size. The ascending aorta is mildly dilated. Aortic arch is normal in ca liber. IVC is normal in size and collapses >50% with inspiration. Pericardium There is no pericardial effusion. 2D Dimensions IVSD d PLAX 1.11 cm M: 0.6-1.2 LV Vol A2C d MOD 109.9 mL LVPW d PLAX 1.13 cm M: 0.6 - 1.2 LV Vol A4C d MOD 89.3 mL LVID d PLAX 4.83 cm M: 4.2 - 5.8 LA vol/ BSA A2C s A-L 17.6 mL/m2 LVDs 3.40 cm M: 2.5 - 4.0 LA vol/ BSA A4C s A-L 13.3 mL/m2 Ao Root d 3.06 cm M: 3.1 - 3.7 LA Vol/ BSA Biplane s A-L 16.8 mL/m2 RA Area A4C 10.01 cm2 LA Area A4C s MOD 13.08 cm2 RA Vol/ BSA A4C s A-L 8.8 mL/m2 LA Area A2C s MOD 16.44 cm2 Ao Asc Diam d 3.53 cm M: 2.6 - 3.4 LV EF A4C MOD 60.6 % LV EF Teichholz 55.6 % LV EF A2C MOD 60.1 % LVEF (Erwin's) 61.17 % M: 52 - 72 LV EF Biplane MOD 61.2 % LV Volume 71.56 mL M: 62 - 150 SV 62.41 mL LV Volume Index 28.85 mL/m2 M: 34 - 74 SV Index 25.14 mL/m2 LV Vol Biplane MOD 102.0 mL FS 29.00 % M-Mode TAPSE 2.02 cm (M/F) >1.7 LV Diastology MV E' lateral 0.098 (>0.1 m/s) E/A Ratio 0.9 LV E/e LAT 5.05 (<14) MV E Vmax 0.49 (0.4-1.3 m/s) MV E/E' lateral 5.05 MV A Vmax 0.55 (0.4-1.3 m/s) MV E/A Ratio 0.83 Aortic Valve LVOT Area 3.44 cm2 AoV Area Vmax 3.10 cm2 LVOT Vmax 1.36 m/s AoV Area/ BSA (Vmax) 1.25 cm2/m2 LVOT Mean Mario. 0.88 m/s INGRID Mean Mario. 2.75 cm2 LVOT Peak Grad 7.4 mmHg INGRID Mean Mario. Index 1.11 cm2/m2 LVOT Mean Grad 3.8 mmHg LVOT VTI 0.251 m LVOT Diam s 2.05 cm AoV Vmax 1.51 m/s Velocity Ratio 0.90 AoV Mean Mario. 1.10 m/s AoV Peak Grad 9.1 mmHg LVOT SV 86.45 mL AoV Mean Grad 5.3 mmHg AoV VTI 0.237 m AoV Area VTI 3.65 cm2 AoV Area/ BSA (VTI) 1.47 cm/m2 Mitral Valve MV DT 199 (160-240 msec) MV PHT 58 msec MV Area PHT 3.81 cm2 MV VTI 0.288 m MV Area VTI 3.01 (4.0-6.0 cm2) Pulmonary Valve PV Vmax 1.64 (0.5-1.5 m/s) RVOT Peak Gr. 2.51 mmHg PV Peak Grad 10.7 mmHg RVOT Mean Gr. 1.05 mmHg PV Mean Grad 5.5 mmHg RVOT VTI 0.146 m PV VTI 0.296 m RVOT Vmax 0.79 m/s Tricuspid Valve TR Peak Grad 15.2 mmHg TR Vmax 1.96 m/s RA Pressure 3.00 mmHg RVSP (TR) 18.3 mmHg
== END 2023-01-20 02:00 ==
LOC: DI 01:40
PROVIDERS: PCP Physician Assistant; Visit Provider Internal Medicine Cardiovascular Disease
DX: R06.02 Shortness of breath (principal); I25.10 Atherosclerotic heart disease of native coronary artery without angina pectoris
CPT/HCPCS: 93306

== ENCOUNTER 2023-02-06 09:43 | Day surgery (SDC) | payer BC, SELFPAY ==
--- NOTE | 2023-02-05 21:04 | W.PM.DSUDISC ---
Date of service: 02/06/23 Time of Service: 12:59 Discharge Plan Disposition Patient Disposition: Home Condition: Good Discharge Details Reason For Visit: EGD and colonoscopy Attending Provider: Chepe Nicolas Primary Care Provider: Maulik Encinas Home Meds and New Rx's Prescriptions: Continued hydrochlorothiazide 25 mg tablet 25 mg PO DAILY pantoprazole 40 mg tablet,delayed release (DR/EC) 40 mg PO DAILY cyclobenzaprine 10 mg tablet 10 mg PO BID MDD 2 Qty: 180 3RF acetaminophen 500 MG tablet 1,000 mg PO Q8H PRN Qty: 90 0RF aspirin 81 mg tablet,delayed release (DR/EC) 81 mg PO DAILY Qty: 240 8RF atorvastatin 80 mg tablet 80 mg PO DAILY Qty: 90 6RF metoprolol succinate 100 mg tablet extended release 24 hr 100 mg PO .nightly Qty: 90 3RF spironolactone 25 mg tablet 25 mg PO DAILY Qty: 90 5RF Entresto 49-51 mg tablet 1 tab PO BID Qty: 180 3RF escitalopram oxalate [Lexapro] 20 mg tablet 20 mg PO DAILY tadalafil [Cialis] 20 mg tablet 20 mg PO DAILY PRN Rx Instructions: administer approximately 30min before sexual activity; do not use more than 1 dose per 24hrs Discontinued bisacodyl [Dulcolax (bisacodyl)] 5 mg tablet,delayed release (DR/EC) 5 mg PO ONCE Qty: 4 0RF Rx Instructions: Take per colonoscopy instructions provided by ordering providers office polyethylene glycol 3350 17 gram/dose powder 17 g PO ONCE Qty: 238 0RF Rx Instructions: Take per colonoscopy instructions provided by ordering providers office Discharge Instructions Instructions: Castellon Esophagus (GEN), Diverticulosis Diet (GEN), Diverticulosis (GEN) Additional Instructions: Malik, We were able to complete your endoscopies today without any difficulty. You have a little bit of inflammation in your stomach that seems consistent with gastritis, or mild irritation of the lining of the stomach. Proton pump inhibitors such as pantoprazole are generally regarded as the best medication for this. I also solve the abnormalities in the lower part of your esophagus that are consistent with short segment Castellon's esophagus. I did perform biopsies of this area. Once I have the results of those biopsies, I will be in touch with my final recommendations. Your colonoscopy also went very well. You have a fair amount of diverticulosis. These are weak spots in the colon wall, that can become infected and inflamed. If that happens, patients typically experience pain in the left lower side of their abdomen. It is typically treated with antibiotics. The best way to prevent any complications from diverticulosis seems to be consuming a high-fiber diet and staying well-hydrated, with avoidance of symptoms of constipation. We have attached some general information here regarding Castellon's esophagus as well as diverticulosis. You will need another screening colonoscopy to minimize the chances of colon or rectal cancers developing in 10 years. 1. If tolerated, consume a soft, low fiber diet for 1-2 days. 2. Do not drive, drink alcohol, operate machinery, make critical decisions, or do activities that require coordination or balance for 24 hours. 3. Because air was put into your colon during the procedure, expelling air from your rectum (passing gas or farting) is normal. 4. You may not have a bowel movement for 1-3 days because of the colonoscopy prep. This is normal. 5. You may experience a sore throat for 24 to 48 hours. You may use throat lozenges or gargle with warm salt water to relieve the discomfort. 6. Because air was put into your stomach during the procedure, you may experience some belching. 7. Go directly to the emergency room if you notice any of the following: Develop chills (warm to touch), or if you have a thermometer and your temperature is above 101 Difficulty breathing or difficultly swallowing Persistent vomiting Severe abdominal pain, other than gas cramps Severe chest pain Black, tarry stools Any bleeding ? exceeding one tablespoon 8. Call your physician if the site where your intravenous was started becomes red, swollen, painful, and warm to touch. 9. Your physician has reviewed your pre-procedure medications. Please continue to take those medications as previously ordered. You will be given specific information/education regarding any changes to your medications before leaving. Activity:: Activity as Tolerated Diet:: As Tolerated Discharge Orders Discharge Orders: Discharge Order (Routine); Ordered 02/05/23 Ordered By: Chepe Nicolas DS: Diagnosis Discharge Diagnosis (1) Colon cancer screening: Status: Acute Asessment and Plan: Negative screening colonoscopy, follow-up on GE junction biopsies
--- NOTE | 2023-02-05 21:06 | ENDO_ITS ---
Date of service: 02/06/23 Time of Service: 13:02 Endoscopy Report DATE OF PROCEDURE: 02/06/23 PRE-OP DIAGNOSIS: Barretts esophagus and screening colonoscopy POST-OP DIAGNOSIS: other (Short segment Castellon's esophagus; gastritis; colonic diverticulosis) PROCEDURE: EGD with biopsies and colonoscopy SURGEON: Chepe Nicolas ANESTHESIA TYPE: General:No Airway ESTIMATED BLOOD LOSS: 5 PATHOLOGY: other (Gastric ulcer, random gastric biopsies, biopsies of the GE junction) COMPLICATIONS: None DISPOSITION: same day INDICATIONS: Malik is 57 years old with a hisrory of Barretts and longstanding GERD. He needs screening EGD and colonoscopy PREP: Miralax/Dulcolax PROCEDURE START TIME: 12:09 PROCEDURE END TIME: 12:36 COLONOSCOPY RETRACTION TIME: 12 FINDINGS: Short segment Castellon's esophagus at 38 cm; antral gastritis with punctate ulceration; colonic diverticulosis PROCEDURE DESCRIPTION: After the initiation of monitored anesthetic care, and with the assistance of a bite block, I advanced a standard gastroscope through the mouth past the hypopharynx and into the esophagus.? Under the direct vision of the scope, I advanced down the esophagus into the stomach.? Once I entered the stomach, I performed a brief inspection, followed by retroflexion towards the gastric cardia.? This appeared normal.? After that, I gently advanced the scope around the incisura angularis and examined the pylorus.? There was some mild gastritis in the antrum adjacent to the pylorus. There were 2 punctate areas of gastric ulceration. They were flat. I did perform biopsy here. This was done with cold forceps. There was minimal bleeding. Next, I advanced the scope through the pylorus into the duodenum.? The mucosa was pink and healthy appearing.? There were no abnormalities.? I was able to visualize bile draining into the duodenum through the ampulla Vater. ?Next, I began retracting the endoscope.? I brought the camera back into the stomach and perform random biopsies of the gastric body in an effort to rule out Helicobacter pylori as a source of his gastritis.? I then gently desufflated some of the stomach, and withdrew the endoscope into the distal esophagus. There was short segment Castellon's esophagus of approximately 1.5 cm extending from the GE junction at 38 cm from the incisors. I performed four-quadrant biopsies here.. ?Finally, I withdrew the scope along the length of the esophagus taking great care to examine the e ntirety of the mucosa.? I did not appreciate any abnormalities. We then moved Malik into the left lateral decubitus position. I began by performing an external anorectal exam.? Perineum and skin were normal, as was the anal verge.? There was no evidence of external hemorrhoids.? Next, I performed a digital rectal exam.? I did not appreciate any abnormal findings.? Next, I advanced a colonoscope into the rectal vault.? I performed retroflexion.? This was normal.? Using insufflation, I then advanced the colonoscope beyond the rectal folds and into the sigmoid colon before advancing towards the cecum.? The quality of the prep was excellent.? There was sigmoid diverticulosis. The scope was noted to be in the cecum by identification of the ileocecal valve and appendiceal orifice.? I then began withdrawing the colonoscope using repeated irrigation as necessary for full evaluation of the colonic mucosa. ?Once the scope was withdrawn to the level of the rectum, great care was taken to examine portions of the rectal folds.? Finally, the scope was withdrawn and the patient was brought to the same-day surgery recovery unit as the anesthetic wore off. ?The findings and instructions were shared with the patient prior to discharge.
[2023-02-06 10:10] VITALS: BP 125/98; PULSE 99; RESP 18; TEMP 36.6; O2SAT 99
[2023-02-06] MEDS: Lactated Ringers 1,000 ML 80 ML IV (10:53)
--- NOTE | 2023-02-06 11:46 | W.ANESPRE ---
General Info Date of Service Date Performed: 02/06/23 Height: 6 ft 1 in Weight: 123 kg Body Mass Index (BMI): 35.7 Surgical Procedure: Operation Date: 02/06/23 11:35 Proposed Procedure Side Surgeon p Colonoscopy/Gastroscopy Chepe Nicolas MD Meds Allergies and Home Medications Allergies Allergy/AdvReac Type Severity Reaction Status Date / Time Penicillins AdvReac Severe GI upset Verified 02/06/23 10:14 lisinopril AdvReac Intermediate cough Verified 02/06/23 10:14 Home Medication Medication Instructions Recorded acetaminophen 500 mg tablet 1,000 mg PO Q8H PRN #90 tab-caps 05/22/17 hydrochlorothiazide 25 mg tablet 25 mg PO DAILY 02/02/20 aspirin 81 mg tablet,delayed 81 mg PO DAILY #240 tabs 12/21/20 release pantoprazole 40 mg tablet,delayed 40 mg PO DAILY 06/11/21 release cyclobenzaprine 10 mg tablet 10 mg PO BID #180 tabs 01/22/22 atorvastatin 80 mg tablet 80 mg PO DAILY #90 tabs 03/18/22 metoprolol succinate 100 mg 100 mg PO .nightly #90 tabs 06/16/22 tablet,extended release 24 hr spironolactone 25 mg tablet 25 mg PO DAILY #90 tabs 07/22/22 sacubitril 49 mg-valsartan 51 mg 1 tab PO BID #180 tabs 09/08/22 tablet (Entresto) escitalopram oxalate 20 mg tablet 20 mg PO DAILY 11/19/22 (Lexapro) tadalafil 20 mg tablet (Cialis) 20 mg PO DAILY PRN 11/19/22 Current Visit Medications: Current Medications Generic Name Dose Route Start Last Admin Trade Name Freq PRN Reason Stop Dose Admin Hyoscyamine Sulfate 0.125 mg 02/05/23 21:07 Hyoscyamine 0.125 Mg Sl/Oral/Chew SL 03/07/23 21:06 DIRECTED PRN Ringer's Solution 1,000 mls @ 80 mls/hr 02/06/23 06:00 02/06/23 10:53 IV 02/06/23 16:00 80 mls/hr INFUSION LOUANN Administration IV Miscellaneous Supplies 1 each 02/06/23 06:00 Iv Access IV 02/06/23 16:00 DIRECTED LOUANN Ondansetron HCl 4 mg 02/05/23 21:07 Ondansetron 4 Mg/2 Ml Vial IVP 03/07/23 21:06 Q4H PRN PRN Nausea / Vomiting Sodium Chloride 0 ml 02/06/23 06:00 Normal Saline Flush 10 Ml Syr IV 02/06/23 16:00 PRN PRN Sodium Chloride 0 ml 02/06/23 06:00 Normal Saline 10 Ml Vial IJ 02/06/23 16:00 DIRECTED PRN Sterile Water 0 ml 02/06/23 06:00 Water,Injection,Sterile 10 Ml Vial IJ 02/06/23 16:00 DIRECTED PRN PFSH Active Problems Active Problems: Problem Status Onset Code Colon cancer screening Z12.11 Chronic prostatitis/chronic pelvic pain syndrome N41.1, G89.4 Kidney stones N20.0 Cardiomyopathy I42.9 Frequent PVCs I49.3 Alcohol abuse F10.10 Hypertension I10 Chest pain R07.9 Angina at rest I20.8 Barretts esophagus K22.70 Coronary artery disease I25.10 Positional lightheadedness R42 Traumatic tear of left rotator cuff S46.012A Blood in stool K92.1 Shortness of breath on exertion R06.02 Medical History Medical History Castellon's esophagus GERD (gastroesophageal reflux disease) History of herniated intervertebral disc surgery to repair 15+ years ago HLD (hyperlipidemia) HTN (hypertension) Prediabetes Surgical History Surgical History Cholecystectomy (~1995) cystourethroscopy (03/14/13) [facility] EGD - MAC 2013 Tobacco Smoking/Tobacco Use Status: Never Alcohol Alcohol Intake: current Alcohol intake frequency: 3 or more drinks per day Alcohol type: wine Substance Use Substance use: Never Vital Signs and Lab Results Vital Signs Most Recent Vital Signs in EMR: Most Recent Vital Signs Temp Pulse Resp BP Pulse Ox 36.6 C 99 H 18 125/98 H 99 02/06/23 10:10 02/06/23 10:10 02/06/23 10:10 02/06/23 10:10 02/06/23 10:10 Lab Results Blood Type / Crossmatch: No Data to Display Complete Blood Count: No Data to Display Complete Metabolic Panel: No Data to Display Liver Function Panel: No Data to Display Coagulation Panel: No Data to Display Cardiac Panel: No Data to Display Arterial Blood Gas: No Data to Display Venous Blood Gas: No Data to Display Pancreas Panel: No Data to Display Thyroid Panel: No Data to Display Infectious Disease: No Data to Display Blood Cultures: No Data to Display Toxicology Panel: No Data to Display Anesthesia Assessment and Plan Anesthesia History Personal History: No History of Anesthesia Complications Family History: No Family History of Anesthesia Complications Exercise Tolerance Exercise Tolerance: Metabolic Equivalents>4 Pertinent Negatives Pertinent Negatives: No Symptoms of GERD Cardiac & Pulmonary Exam Cardiac Exam: Normal S1/S2 Heart Sounds Pulmonary Exam: Clear Bilateral Breath Sounds Implantable Cardiac Device Does patient have a Pacemaker or an ICD?: No Airway Exam Known Difficult Airway: No Mallampati Class: 2 Mouth Opening: Normal (> 3cm) Thyromental Distance: Greater than 3 cm Neck Range of Motion: Full ROM Neck Circumference: Normal Teeth Condition: Normal Dentition ASA Classification ASA Score: ASA 2 Emergency Case?: No NPO Status NPO Status: NPO Clears >2 hours, Solids >8 hours Anesthesia Plan Resuscitation Status: Full Code Anesthesia Technique: General Anesthesia Airway Planned: Natural Airway Monitors Used: Standard Monitors
[2023-02-06 11:48] VITALS: BMI 35.7
--- NOTE | 2023-02-06 12:10 | ESO_PTH ---
PATIENT: Malik Johns LOC: [facility] U#:[id number] AGE/SX: 57/M ROOM: RE02/06/[address]: Chepe Nicolas MD : [id number] BED: DIS: 02/06/2023 SPEC #: [id number] RECD: 02/06/23 12:56 STATUS: KATIE RE #: [id number] NIRALI: 02/06/23 12:[address]: Chepe Nicolas DEPT: Surgical Specimen RECD BY: Amira Portillo ENTERED: 02/06/23 12:59 SP TYPE: Eso OTHR DR: Maulik Encinas Tissues: 1 - ESOPHAGUS BIOPSY 2 - ESOPHAGUS BIOPSY 3 - ESOPHAGUS BIOPSY Procedures: GROSS AND MICRO LEVEL 4 Comments: [id number]
[2023-02-06 12:45] VITALS: BP 135/85; PULSE 50; RESP 17; TEMP 36.2; O2SAT 98
--- NOTE | 2023-02-06 12:50 | W.ANESPOSTOP ---
Postoperative Evaluation Date, Time and Location Date Performed: 02/06/23 Time Performed: 12:50 Patient Location: Day Surgery Unit Vital Signs Most Recent Imported Vital Signs: Most Recent Vital Signs Temp Pulse Resp BP Pulse Ox 36.6 C 99 H 18 125/98 H 99 02/06/23 10:10 02/06/23 10:10 02/06/23 10:10 02/06/23 10:10 02/06/23 10:10 Pain Score Most Recent Pain Score: Most Recent Pain Score Pain Level 0 02/06/23 10:10 Assessment Mental Status: Awake (Alert & Oriented to Patient Baseline) Airway and Respiratory Function: Patent airway with normal (patient baseline) respiratory exam Cardiovascular Function: Hemodynamically Stable Hydration Status: Adequately Hydrated Nausea & Vomiting: No Nausea or Vomiting Pain: Pt. Denies Any Pain Peripheral Nerve Block: Patient did not receive a nerve block
[2023-02-06 13:10] VITALS: BP 128/70; PULSE 53; RESP 17; TEMP 36.3; O2SAT 98
== END 2023-02-06 13:20 | disposition home or self-care (01) ==
PROVIDERS: PCP Physician Assistant; Visit Provider Surgery
PROC: (CPT 45378; principal; 2023-02-06 11:30)
DX: Z12.11 Encounter for screening for malignant neoplasm of colon (principal); K22.70 Barrett's esophagus without dysplasia; K57.30 Diverticulosis of large intestine without perforation or abscess without bleeding; K29.70 Gastritis, unspecified, without bleeding; K25.9 Gastric ulcer, unspecified as acute or chronic, without hemorrhage or perforation
CPT/HCPCS: 45378; 43239; 88305; J2704

== ENCOUNTER 2023-02-06 14:45 | Emergency (ER) | payer BC, SELFPAY ==
[2023-02-06 14:48] VITALS: BP 126/79; PULSE 95; RESP 16; TEMP 36.4; O2SAT 100
--- NOTE | 2023-02-06 15:11 | ED.GENADUL_ITS ---
Discharge Plan Disposition Patient Disposition: Home Discharge Details Clinical Impression: Fall (on) (from) other stairs and steps, initial encounter, Contusion of foot, right, Contusion of right little finger without damage to nail, initial encounter Primary Care Provider: Maulik Encinas ED Provider: Sloane Montgomery Home Meds and New Rx's Prescriptions: New hydrocodone-acetaminophen 5-300 mg tablet 1 tab PO BID PRNQty: 10 0RF Rx Instructions: Take for pain not relieved by [id number] medications. Do not drink alcohol, drive, operate heavy machinery or make important decisions while taking this medication. This medication can be habit-forming and can cause drowsiness. Continued hydrochlorothiazide 25 mg tablet 25 mg PO DAILY pantoprazole 40 mg tablet,delayed release (DR/EC) 40 mg PO DAILY cyclobenzaprine 10 mg tablet 10 mg PO BID MDD 2 Qty: 180 3RF aspirin 81 mg tablet,delayed release (DR/EC) 81 mg PO DAILY Qty: 240 8RF atorvastatin 80 mg tablet 80 mg PO DAILY Qty: 90 6RF metoprolol succinate 100 mg tablet extended release 24 hr 100 mg PO .nightly Qty: 90 3RF spironolactone 25 mg tablet 25 mg PO DAILY Qty: 90 5RF Entresto 49-51 mg tablet 1 tab PO BID Qty: 180 3RF escitalopram oxalate [Lexapro] 20 mg tablet 20 mg PO DAILY tadalafil [Cialis] 20 mg tablet 20 mg PO DAILY PRN Rx Instructions: administer approximately 30min before sexual activity; do not use more than 1 dose per 24hrs sucralfate [Carafate] 1 gram tablet 1 g PO QACHS Qty: 120 3RF Rx Instructions: Take 1 tablet before every meal and at nighttime. Held acetaminophen 500 MG tablet 1,000 mg PO Q8H PRN Qty: 90 0RF Hold Instructions: Resume on 02/13/23. Do not take acetaminophen with hydrocodone/acetaminophen Discharge Instructions Instructions: Contusion in Adults (ED), Foot Contusion (ED), Fall Prevention (ED) Additional Instructions: Call the orthopedic clinic on Thursday the for a follow-up appointment and recheck. Use the crutches as needed for ambulation. Fill the prescription for crutches if the ones at home or not the right size. After 2 days remove the finger splint and gently flex and extend finger to prevent stiffening. Return to the emergency department for any new or worrisome symptoms such as headache, vomiting, chest pain, abdominal pain, dizziness or any concerns. Alternate acetaminophen every 3 hours with no more than 600 mg of ibuprofen. Check with your primary care provider and general surgeon about taking ibuprofen if you have a history of ulcers. Take the hydrocodone/acetaminophen for severe pain not relieved by acetaminophen or ibuprofen alone do not drink alcohol, drive, operate heavy machinery or make important decisions while taking this medication. It can be habit-forming and cause drowsiness. Referrals: [facility] [Provider Group] Discharge Data Discharge Date/Time-TO BE ENTERED AT DEPARTURE: 02/06/23 16:34 Discharge Physician: Sloane Montgomery Medical Decision Making This is a 57-year-old male who underwent routine screening upper and lower endoscopy this morning and does have a history of CHF and coronary artery disease. He denied any dizziness chest pain or shortness of breath prior to falling. He states he slipped on wet stairs falling down almost a full flight but remained upright and did not hit his head or lose consciousness. He is not on therapeutic anticoagulants. He is complaining of pain in the right little finger and right foot. We will update his tetanus and I have ordered some hydrocodone/acetaminophen for pain. We will obtain x-rays of the right little finger and right foot. I do not see any indication for CT scanning of the head neck chest abdomen or back since his exam is normal and reassuring and he is not clinically intoxicated and does not have evidence of a head injury. He cares for being like what patient is feeling the skin to be we will get something that I go to my [facility] female okay HPI General Date/Time Provider Initiated Documentation: 02/06/23 14:49 . HPI Narrative: Time seen was 1500 in bed 8. Chief complaint I fell down the stairs. The patient is a 57-year-old [id number] male with history of cardiomyopathy hypertension and coronary artery disease who slipped on wet wooden stairs falling down approximately 12 steps. He states that he was upright and denies hitting his head or loss of consciousness. He denies any dizziness chest pain or shortness of breath prior to the fall. He states that the steps were wet from rain coming in the window. He states that his right foot went underneath him. He denies any headache, blurry vision, oral trauma, neck or back chest or abdominal pain. He has chronic numbness in his feet which is unchanged. Today the patient had a screening endoscopy upper and lower. He is also complaining of pain in the right pinky with decreased range of motion secondary to pain. He is also complaining of numbness and tingling in the distal aspect of the right little finger. He denies any previous injury to the finger. He is also complaining of pain in the right foot and sustained some superficial abrasions to the dorsum of the right foot and pretibial region of the right lower leg. He denies any nausea or vomiting. The patient took 4 [id number]-cbcffps ibuprofen and 2 acetaminophen prior to arrival. He cannot recall the date of his last tetanus shot. He is also complaining of feeling hungry, since he has not eaten since last night because of his endoscopy this morning. He tells me that he did receive anesthesia but does not feel any of the effects currently. He is accompanied by his who did not witness the fall. He does have a history of dizzy spells, but denies feeling dizzy prior to the fall. He is not on any therapeutic anticoagulants, other than 81 mg of aspirin daily. He does tell me he has a history of ulcers Related Data Home Medications Medication Instructions Recorded Confirmed acetaminophen 500 mg tablet 1,000 mg PO Q8H PRN #90 tab-caps 05/22/17 02/06/23 hydrochlorothiazide 25 mg tablet 25 mg PO DAILY 02/02/20 02/06/23 aspirin 81 mg tablet,delayed 81 mg PO DAILY #240 tabs 12/21/20 02/06/23 release pantoprazole 40 mg tablet,delayed 40 mg PO DAILY 06/11/21 02/06/23 release cyclobenzaprine 10 mg tablet 10 mg PO BID #180 tabs 01/22/22 02/06/23 atorvastatin 80 mg tablet 80 mg PO DAILY #90 tabs 03/18/22 02/06/23 metoprolol succinate 100 mg 100 mg PO .nightly #90 tabs 06/16/22 02/06/23 tablet,extended release 24 hr spironolactone 25 mg tablet 25 mg PO DAILY #90 tabs 07/22/22 02/06/23 sacubitril 49 mg-valsartan 51 mg 1 tab PO BID #180 tabs 09/08/22 02/06/23 tablet (Entresto) escitalopram oxalate 20 mg tablet 20 mg PO DAILY 11/19/22 02/06/23 (Lexapro) tadalafil 20 mg tablet (Cialis) 20 mg PO DAILY PRN 11/19/22 02/06/23 hydrocodone 5 mg-acetaminophen 300 1 tab PO BID PRN #10 tabs 02/06/23 mg tablet sucralfate 1 gram tablet (Carafate) 1 g PO QACHS #120 tabs 02/06/23 02/06/23 Previous Rx's Medication Instructions Recorded acetaminophen 500 mg tablet 1,000 mg PO Q8H PRN #90 tab-caps 05/22/17 aspirin 81 mg tablet,delayed 81 mg PO DAILY #240 tabs 12/21/20 release cyclobenzaprine 10 mg tablet 10 mg PO BID #180 tabs 01/22/22 atorvastatin 80 mg tablet 80 mg PO DAILY #90 tabs 03/18/22 metoprolol succinate 100 mg 100 mg PO .nightly #90 tabs 06/16/22 tablet,extended release 24 hr spironolactone 25 mg tablet 25 mg PO DAILY #90 tabs 07/22/22 sacubitril 49 mg-valsartan 51 mg 1 tab PO BID #180 tabs 09/08/22 tablet (Entresto) hydrocodone 5 mg-acetaminophen 300 1 tab PO BID PRN #10 tabs 02/06/23 mg tablet sucralfate 1 gram tablet (Carafate) 1 g PO QACHS #120 tabs 02/06/23 Allergies Allergy/AdvReac Type Severity Reaction Status Date / Time Penicillins AdvReac Severe GI upset Verified 02/06/23 14:51 lisinopril AdvReac Intermediate cough Verified 02/06/23 14:51 General Stated Complaint: Orthopedic SHEKHAR: 3 Review of Systems All systems reviewed & are unremarkable except as noted in HPI and below Constitutional Constitutional: Reports as per HPI, Denies fatigue, Denies fever(s), Denies headache(s) and Denies weakness Eyes Eyes: Reports as per HPI, Denies blurry vision, Denies diplopia, Denies loss of vision and Denies tunnel vision ENT Ears, Nose, Mouth, and Throat: Reports as per HPI, Denies dental pain, Denies vertigo, Denies dizziness, Denies ear discharge, Denies headache(s), Denies lip swelling, Denies epistaxis, Denies mouth pain, Denies neck pain, Denies nose pain, Denies odynophagia and Denies disequilibrium Cardiovascular Cardiovascular: Reports as per HPI, Denies chest pain, Denies irregular heart rhythm, Denies lightheadedness, Denies palpitations and Denies dyspnea Respiratory Respiratory: Reports as per HPI and Denies dyspnea Gastrointestinal Gastrointestinal: Denies abdominal pain and Denies odynophagia Genitourinary Genitourinary: Reports system reviewed and no additional complaints, except as documented Musculoskeletal Musculoskeletal: Denies neck pain Comments: As per HPI. The patient is complaining of pain in the right little finger and the right foot. He describes the pain as severe constant and aggravated by movement and palpation. He is able to weight-bear but is unable to fully bear weight on the right foot. He denies any previous injury to that foot or ankle Neurologic Neurologic: Reports as per HPI, Denies vertigo, Denies dizziness, Denies headache(s), Denies localized weakness, Denies loss of vision, Denies disequilibrium and Denies weakness Comments: The patient has chronic numbness and tingling in his feet which she states is unchanged. He does have a history of heavy alcohol use and may have some peripheral neuropathy as result since she does not have any history of diabetes Endocrine Endocrine: Denies fatigue and Denies palpitations Hematologic/Lymphatic Comments: The patient is not on any therapeutic anticoagulants Allergic/Immunologic Allergic/Immunologic: Denies lip swelling [facility] All Active Problems (Updated 02/06/23 @ 16:17 by Sloane Montgomery MD) Fall (on) (from) other stairs and steps, initial encounter (Acute) Contusion of foot, right (Acute) Contusion of right little finger without damage to nail, initial encounter (Acute) Colon cancer screening (Acute) Chronic prostatitis/chronic pelvic pain syndrome (Acute) Kidney stones (Chronic) Cardiomyopathy (Acute) Frequent PVCs (Acute) Alcohol abuse (Chronic) Hypertension (Chronic) Chest pain (Acute) Angina at rest (Acute) Barretts esophagus (Acute) Coronary artery disease (Chronic) Positional lightheadedness (Acute) Traumatic tear of left rotator cuff (Acute) Blood in stool (Acute) Shortness of breath on exertion (Acute) Medical History Castellon's esophagus GERD (gastroesophageal reflux disease) History of herniated intervertebral disc surgery to repair 15+ years ago HLD (hyperlipidemia) HTN (hypertension) Prediabetes Surgical History (Updated 02/06/23 @ 13:34 by Heena Molina) Cholecystectomy (~1995) cystourethroscopy (03/14/13) [facility] EGD - MAC (~01/2023) 2013 History of colonoscopy (~01/2023) 2013 Family History Mother No problems noted. Father No problems noted. Social History Smoking/Tobacco Use Status: Never Smoking risk assessment performed?: Yes Alcohol Intake: current Alcohol Intake frequency: 3 or more drinks per day Alcohol type: wine Drug use: Never Housing: house Current gender identity: male Do you feel safe at home: No Do you feel safe in your relationship?: No Additional Social history: unable to assess [facility] Exam Narrative Exam Narrative: The patient is a well-developed well-nourished male lying on the stretcher in no acute distress. His GCS is 15. He is not hypotensive. He is alert and orien robin x4. He is not clinically intoxicated Const General: cooperative, healthy appearing, comfortable, well developed and well groomed Nutritional Appearance: average body habitus Orientation: alert, awake and oriented x3 Other: GCS is 15 [facility] Head: normal to inspection, no palpable skull fracture, normocephalic, atraumatic, no Levine's sign, no raccoon eyes and no scalp tenderness Ears: hearing grossly normal bilaterally, normal mastoids bilaterally and other (No otorrhea or rhinorrhea) General nose exam: external nose normal Face and sinus: normal facial exam Mouth: oral mucosae normal and lip normal Teeth and gingiva: other (No malocclusion) Eyes General: appearance normal, both eyes and all related structures Eyelids: eyelids normal Conjunctivae: conjunctivae normal Sclera: sclerae normal Cornea: corneas normal Pupils: PERRL EOM: EOM intact bilaterally Neck Neck: full ROM, no meningeal signs, trachea midline, supple, no anterior neck swelling, nontender, no tracheal deviation and no JVD Chest Chest: normal inspection of the chest, normal palpation of entire chest wall and no crepitus Resp Effort & Inspection: normal respiratory effort, able to speak in complete sentences and no use of accessory muscles Auscultation: clear to auscultation bilaterally and normal I/E ratio Cardio Jugular venous pressure: no JVD Other: Heart sounds are distant. Regular rate and rhythm no murmur rub or gallop. PMI is not displaced. No JVD or significant peripheral edema GI Inspection: normal to inspection and no abdominal wall ecchymosis Palpation: soft, no hepatosplenomegaly, no aortic enlargement, no guarding, no hepatomegaly and no hepatosplenomegaly Auscultation: normal bowel sounds Other: Pelvis is stable to compression. No CVA tenderness Back/Spine/Pelvis Other: No midline tenderness step-off or bony crepitus. Full range of motion of the back. No CVA tenderness. No bruising no step-offs Skin Other: His skin is warm and dry normal for ethnicity. There is a superficial abrasion of the dorsum of the right foot and pretibial region of the lower right leg. Neuro Other: Cranial nerves II through XII are intact. GCS is 15. Motor function is 5 out of 5 in the upper and lower extremities except for the right foot and the right little finger which have decreased range of motion secondary to pain Extrem Other: He is moving all of his extremities normally, except for the right little finger which reveals mild swelling and tenderness over the proximal inner phalangeal joint. Cap refills less than 2 seconds. There is no open lesions or obvious deformity. He is able to fully extend his fingers but he cannot fully flex his right little finger. His tendons are intact. The right lower extremity reveals full range of motion of the right hip and knee. There is no effusion. There is a superficial abrasion of the right lower pretibial region of the right lower leg. The ankle has full range of motion no instability, and has full range of motion. The right foot reveals tenderness over the midfoot. It appears to have a deformity of the toenail of the right great foot which is chronic. He has slight decrease sensation of the toes of both feet but all his tendons are intact. The remainder of the extremities are unremarkable Psych Appearance: grossly normal Other: The patient has capacity to make medical decisions. Course Reevaluation(s) Time: 16:02 Reevaluation #2: I have reexamined the patient. He states that he feels improved and ready for discharge. I have discussed the x-rays. I have advised that he get a orthopedic support for the right foot and a splint on the right finger. I have advised him to follow-up with orthopedics. I have advised him to take acetaminophen and/or ibuprofen for the pain but have warned him against using nonsteroidals if he does have a history of ulcers and to discuss using with his surgeon who did the colonoscopy today and/or his primary care provider. The patient tells me that he has crutches at home. I will write a prescription for hydrocodone/acetaminophen I advised patient not to drink alcohol operate heavy machinery drive or make important decisions while taking this medication. I have advised him to call the orthopedic clinic in the on Thursday the for a follow-up appointment. The patient tells me he has crutches at home which she will use but I will write a prescription in case they are not the correct size. He voiced understanding agreement with the discharge plan. All his questions and concerns were addressed prior to discharge Vital Signs Vital signs: Vital Signs Temperature 36.4 C L 02/06/23 14:48 Pulse 95 H 02/06/23 14:48 Respiratory Rate 16 02/06/23 14:48 Blood Pressure 126/79 02/06/23 14:48 Pulse Oximetry 100 02/06/23 14:48 Temperature 36.4 C L 02/06/23 14:48 Temperature Source Skin 02/06/23 14:48 Pulse 95 H 02/06/23 14:48 Respiratory Rate 16 02/06/23 14:48 Blood Pressure 126/79 02/06/23 14:48 Blood Pressure Position Sitting 02/06/23 14:48 Pulse Oximetry 100 02/06/23 14:48 Oxygen Delivery Method Room Air 02/06/23 14:48 Oxygen Flow Rate 0 02/06/23 14:48 Pain Level 8 02/06/23 14:48
[2023-02-06] MEDS: HYDROcodone 5/Acetaminophen 325 TAB PO (15:17)
--- NOTE | 2023-02-06 15:33 | DI.RAD_ITS ---
Exam(s) XR FOOT RT COMPLETE EXAM: XR FOOT RT COMPLETE CLINICAL HISTORY: Trauma. TECHNIQUE: 2D digital imaging was performed. Three views. COMPARISON: No exams were available for comparison FINDINGS: BONES: No acute fracture is present. No bony destructive lesion is seen. Small plantar calcaneal spu r. JOINTS: No dislocation present. SOFT TISSUE: Normal. IMPRESSION: Unremarkable radiographs of the right foot. DATA REPOSITORY: RADIATION DOSE DELIVERED:
--- NOTE | 2023-02-06 15:33 | DI.RAD_ITS ---
Exam(s) XR FINGER RT LITTLE EXAM: XR FINGER RT LITTLE CLINICAL HISTORY: Trauma. TECHNIQUE: 2D digital imaging was performed. Three views. COMPARISON: No exams were available for comparison FINDINGS: BONES: Lateral view is limited by overlap by other fingers. No acute fracture is present. No bony de structive lesion is seen. JOINTS: No dislocation present. SOFT TISSUE: Normal. IMPRESSION: No acute abnormality DATA REPOSITORY: RADIATION DOSE DELIVERED:
--- NOTE | 2023-02-06 16:20 | NUR.NOTE ---
Nursing Note: PT needs ortho follow up for Contusion of Right little toe & contusion of Right foot. PT is in finger splint & walking boot. Stephanie, ED
[2023-02-06 16:39] VITALS: BP 149/73; PULSE 52; RESP 18; O2SAT 97
== END 2023-02-06 16:49 | disposition home or self-care (01) ==
PROVIDERS: Emergency Provider Emergency Medicine Emergency Medical Services; PCP Physician Assistant
DX: S90.32XA Contusion of left foot, initial encounter (principal); S60.031A Contusion of right middle finger without damage to nail, initial encounter; W10.9XXA Fall (on) (from) unspecified stairs and steps, initial encounter
CPT/HCPCS: 90471; 99284; 73140; 73630

== ENCOUNTER 2023-02-27 08:13 | Outpatient (CLI) | payer BC, SELFPAY ==
--- NOTE | 2023-02-27 08:00 | RT.EKG_ITS ---
APPROVED REPORT Exam: Resting ECG Reason for Exam: cad Patient Location: O HR:72 bpm ECG Measurements Heart Rate 72 AXIS WY 207 P 23 QRSd 97 QRS -11 QT 405 T 40 QTc 444 Conclusion Sinus rhythm...normal P axis, V-rate 50- 99 Ventricular trigeminy...trigeminy string>6 w/ V complexes Borderline prolonged WY interval...WY >202, V-rate 50- 90 Probable left atrial enlargement...P >50mS, <-0.10mV V1
== END 2023-02-27 08:14 | disposition home or self-care (01) ==
LOC: DI.CARD 08:14
PROVIDERS: PCP Physician Assistant; Visit Provider Internal Medicine Cardiovascular Disease
DX: I25.10 Atherosclerotic heart disease of native coronary artery without angina pectoris (principal)
CPT/HCPCS: 93010

== ENCOUNTER 2023-05-12 18:45 | Emergency (ER) | payer BC, SELFPAY ==
[2023-05-12] VITALS (15 sets, daily range): BP systolic 133–170; BP diastolic 83–108; PULSE 70–89; RESP 10–19; TEMP 36.9; O2SAT 93–99
--- NOTE | 2023-05-12 18:50 | ED.GENADUL_ITS ---
Discharge Plan Disposition Patient Disposition: Home Discharge Details Clinical Impression: Renal colic, Ureterolithiasis Primary Care Provider: Maulik Encinas ED Provider: Juan Jose Camargo [place] Meds and New Rx's Prescriptions: Continued hydrochlorothiazide 25 mg tablet 25 mg PO DAILY pantoprazole 40 mg tablet,delayed release (DR/EC) 40 mg PO DAILY cyclobenzaprine 10 mg tablet 10 mg PO BID MDD 2 Qty: 180 3RF Ozempic 0.25 mg or 0.5 mg (2 mg/3 mL) pen injector 0.75 mg subcut QWEEK acetaminophen 500 MG tablet 1,000 mg PO Q8H PRN Qty: 90 0RF Hold Instructions: Resume on 02/13/23. Do not take acetaminophen with hydrocodone/acetaminophen aspirin 81 mg tablet,delayed release (DR/EC) 81 mg PO DAILY Qty: 240 8RF metoprolol succinate 100 mg tablet extended release 24 hr 100 mg PO .nightly Qty: 90 3RF spironolactone 25 mg tablet 25 mg PO DAILY Qty: 90 5RF Entresto 49-51 mg tablet 1 tab PO BID Qty: 180 3RF escitalopram oxalate [Lexapro] 20 mg tablet 20 mg PO DAILY tadalafil [Cialis] 20 mg tablet 20 mg PO DAILY PRN Rx Instructions: administer approximately 30min before sexual activity; do not use more than 1 dose per 24hrs atorvastatin 80 mg tablet 80 mg PO DAILY Qty: 90 6RF sucralfate [Carafate] 1 gram tablet 1 g PO QACHS Qty: 120 3RF Rx Instructions: Take 1 tablet before every meal and at nighttime. hydrocodone-acetaminophen 5-300 mg tablet 1 tab PO BID PRNQty: 10 0RF Rx Instructions: Take for pain not relieved by [id number] medications. Do not drink alcohol, drive, operate heavy machinery or make important decisions while taking this medication. This medication can be habit-forming and can cause drowsiness. Discharge Instructions Additional Instructions: You are seen in the emergency department for your flank pain. Your ultrasound showed signs of a stone which you have most likely just passed. If you develop nausea vomiting or worsening pain please return to the emergency department. Otherwise please follow-up with your primary care provider as needed next week. HPI General Date/Time Provider Initiated Documentation: 05/12/23 18:50 . HPI Narrative: HPI This is a 57-year-old male with history of ureterolithiasis requiring prior urological interventions arriving to the emergency department via private vehicle in setting of left flank pain. Patient reports that 2 hours ago he suddenly had left flank pain. He reports that it is reminiscent of prior episodes of ureterolithiasis. His most recent episode of ureterolithiasis was 4 years ago. He has required stenting and lithotripsy or he reports in the past. He does not feel that he has ever had a urinary tract infection. He drinks alcohol every week but denies routine tobacco and illicits. He has had no fevers nor dysuria. He has been nauseous. He denies chest pain shortness of breath and any recent falls. Exam General: Well-appearing in no acute distress speaking in complete sentences. Head: Normocephalic, atraumatic. Eye: Extraocular eye movements intact. No conjunctival injection. No scleral icterus. Ear, nose, mouth, throat: Grossly normal inspection. Normal voice, handling secretions normally. Neck: Trachea midline. Cardiovascular: Well-perfused distal extremities. Regular rate and rhythm Respiratory: Nonlabored respiration. Clear lungs bilaterally. Gastrointestinal: Nondistended abdomen. Soft none tender. No rebound. No guarding. Musculoskeletal: No edema. Moving all 4 extremities spontaneously. Skin: Normal for age and race, grossly normal temperature and turgor. No acute rash. Neurologic: Alert and appropriate, no apparent acute deficits. Psychiatric: Mood and manner are appropriate. Grooming and personal hygiene are appropriate. MDM This is an uncomfortable appearing normothermic and not tachycardic 57-year-old male with history of ureterolithiasis now found to have left hydronephrosis and left UVJ stone on ultrasound however given history of urological interventions in the past we will proceed with CT abdomen pelvis without contrast to assess for stone size and confirm location. We will treat with ketorolac fentanyl and IV acetaminophen. Given hydronephrosis my suspicion for ruptured AAA is low. No rash to abdomen to suggest zoster. No left upper quadrant pain to suggest splenic arterial aneurysm. No cough nor fevers to suggest pneumonia. No shortness of breath so doubt PE. No dysuria no frequency so doubt UTI however will obtain urinalysis to confirm. No pain or proportion to suggest necrotizing soft tissue infection. No right lower quadrant tenderness nor pain to suggest appendicitis. We will keep patient n.p.o. pending CT scan. 7:35 PM Basic metabolic panel showing no SIMA. Mild hyperglycemia no anion gap normal bicarbonate??not consistent with DKA. No acute electrolyte abnormalities. CBC lacks anemia thrombocytopenia and leukocytosis. 9 PM Urinalysis showing large blood with proteinuria. Microscopy showing hematuria. Nitrite negative not consistent with UTI. 9:[address] scan showing left ureteral dilatation with surrounding inflammatory changes but no obvious obstructing stone. This is most consistent with a recently passed stone. He has a calcified density in the dependent portion of the left collecting system but does not obstruct. I did advise the patient that he is most likely passed a stone. I advised that if he developed flank pain any fevers nausea or vomiting that he should return to the emergency department. Otherwise we will proceed with empiric trial of expectant outpatient management. Hypertension improved in the ED. Chronic conditions affecting the care of the patient: Obesity ureterolithiasis History obtained from an outside historian: N/A External record review: [facility] [place] [facility] Medications: Ketorolac, acetaminophen, fentanyl Social determinants of health affecting disposition: N/A Management discussed with: N/A Treatment/interventions considered: Hospitalization but deferred Response to therapies provided: Improved pain in the ED Related Data Home Medications Medication Instructions Recorded Confirmed acetaminophen 500 mg tablet 1,000 mg PO Q8H PRN #90 tab-caps 05/22/17 02/27/23 hydrochlorothiazide 25 mg tablet 25 mg PO DAILY 02/02/20 02/27/23 aspirin 81 mg tablet,delayed 81 mg PO DAILY #240 tabs 12/21/20 02/27/23 release pantoprazole 40 mg tablet,delayed 40 mg PO DAILY 06/11/21 02/27/23 release metoprolol succinate 100 mg 100 mg PO .nightly #90 tabs 06/16/22 02/27/23 tablet,extended release 24 hr spironolactone 25 mg tablet 25 mg PO DAILY #90 tabs 07/22/22 02/27/23 sacubitril 49 mg-valsartan 51 mg 1 tab PO BID #180 tabs 09/08/22 02/27/23 tablet (Entresto) escitalopram oxalate 20 mg tablet 20 mg PO DAILY 11/19/22 02/27/23 (Lexapro) tadalafil 20 mg tablet (Cialis) 20 mg PO DAILY PRN 11/19/22 02/27/23 hydrocodone 5 mg-acetaminophen 300 1 tab PO BID PRN #10 tabs 02/06/23 02/27/23 mg tablet sucralfate 1 gram tablet (Carafate) 1 g PO QACHS #120 tabs 02/06/23 02/27/23 semaglutide 0.25 mg or 0.5 mg (2 0.75 mg subcut QWEEK 02/27/23 mg/3 mL) subcutaneous pen injector (Ozempic) atorvastatin 80 mg tablet 80 mg PO DAILY #90 tabs 04/07/23 cyclobenzaprine 10 mg tablet 10 mg PO BID #180 tabs 04/13/23 04/13/23 Previous Rx's Medication Instructions Recorded acetaminophen 500 mg tablet 1,000 mg PO Q8H PRN #90 tab-caps 05/22/17 aspirin 81 mg tablet,delayed 81 mg PO DAILY #240 tabs 12/21/20 release metoprolol succinate 100 mg 100 mg PO .nightly #90 tabs 06/16/22 tablet,extended release 24 hr spironolactone 25 mg tablet 25 mg PO DAILY #90 tabs 07/22/22 sacubitril 49 mg-valsartan 51 mg 1 tab PO BID #180 tabs 09/08/22 tablet (Entresto) hydrocodone 5 mg-acetaminophen 300 1 tab PO BID PRN #10 tabs 02/06/23 mg tablet sucralfate 1 gram tablet (Carafate) 1 g PO QACHS #120 tabs 02/06/23 atorvastatin 80 mg tablet 80 mg PO DAILY #90 tabs 04/07/23 cyclobenzaprine 10 mg tablet 10 mg PO BID #180 tabs 04/13/23 Allergies Allergy/AdvReac Type Severity Reaction Status Date / Time Penicillins AdvReac Severe GI upset Verified 02/27/23 09:29 lisinopril AdvReac Intermediate cough Verified 02/27/23 09:29 General SHEKHAR: 3 PFSH All Active Problems (Updated 05/12/23 @ 21:12 by Juan Jose Camargo MD) Renal colic (Acute) Ureterolithiasis (Acute) Colon cancer screening (Acute) Chronic prostatitis/chronic pelvic pain syndrome (Acute) Kidney stones (Chronic) Cardiomyopathy (Acute) Frequent PVCs (Acute) Alcohol abuse (Chronic) Hypertension (Chronic) Chest pain (Acute) Angina at rest (Acute) Barretts esophagus (Acute) Coronary artery disease (Chronic) Positional lightheadedness (Acute) Traumatic tear of left rotator cuff (Acute) Blood in stool (Acute) Shortness of breath on exertion (Acute) Medical History Castellon's esophagus GERD (gastroesophageal reflux disease) History of herniated intervertebral disc surgery to repair 15+ years ago HLD (hyperlipidemia) HTN (hypertension) Prediabetes Surgical History (Updated 02/06/23 @ 13:34 by Heena Molina) Cholecystectomy (~1995) cystourethroscopy (03/14/13) [facility] EGD - MAC (~01/2023) 2013 History of colonoscopy (~01/2023) 2013 Family History Mother No problems noted. Father No problems noted. Social History Smoking/Tobacco Use Status: Never Smoking risk assessment performed?: Yes Alcohol Intake: current Alcohol Intake frequency: 3 or more drinks per day Alcohol type: wine Drug use: Never Housing: house Current gender identity: male Do you feel safe at home: No Do you feel safe in your relationship?: No Additional Social history: unable to assess juan carlos POCUS Exam (ED) Limited Retroperitoneal(Renal)Exam DATE OF EXAM: 05/12/23 TIME OF EXAM: 19:02 PROVIDER THAT PERFORMED THE STUDY: Juan Jose Camargo IS THIS A REPEAT EXAM DURING THIS ENCOUNTER: No REASON FOR EXAM: Flank pain/left side VISUALIZED STRUCTURES: Left kidney, Right kidney and Other (Bladder) structures: Bladder PERTINENT FINDINGS/IMPRESSION: Hydronephrosis present left side and Other impression: Left-sided hydronephrosis mild. Left UVJ stone with twinkle sign INCIDENTAL FINDINGS: Left-sided hydronephrosis mild. Left UVJ stone with twinkle sign Exam complete
--- NOTE | 2023-05-12 19:00 | DI.CT_ITS ---
Exam(s) CT RENAL COLIC WO EXAM: CT RENAL COLIC WO CLINICAL HISTORY: Left flank pain. TECHNIQUE: Imaging Protocol: Axial computed tomography images with coronal and sagittal reformatted images were created and reviewed. CONTRAST MATERIAL: Noncontrast COMPARISON: CT ABD/PELVIS WO W CONTRAST from 02/02/[address] THORAX CTA from 03/03/2020 FINDINGS: ABDOMEN: Lung Bases: Normal where visualized. Liver: Mild hepatic steatosis. No measurable mass. Gallbladder and biliary tract: Status post cholecystectomy. No radiodense calculus or dilation. Pancreas: Normal density, no calcifications or inflammatory process. Spleen: Normal. Kidneys: Normal size, contour and axis. Previous exam showed a left parapelvic renal cyst which is no t easily differentiated from the renal pelvis on today's exam given its central location and lack of contrast. There is a stone seen in the renal pelvis versus within the parapelvic cyst measuring 11 m illimeters. The proximal left ureter is dilated down to the level of the pelvis. The distal most po rtion of the ureter is normal in diameter. However no obstructing stone is seen. Additional punctat e sinus of stones are seen bilaterally. No masses seen. Adrenal glands: No masses seen. Abdominal Aorta: Abdominal portion non-dilated. Soft tissues: Small fatty containing inguinal hernias. PELVIS: Bladder: Not well distended. Mild wall thickening. Could indicate cystitis. No evidence of stones. No visible mass. Bowel: Sigmoid diverticulosis. No obstruction or bowel wall thickening. Reproductive: Unremarkable. Peritoneal cavity: No ascites, collection or mesenteric inflammatory response. Bones: Degenerative disc changes and facet degenerative changes at L5-S1. IMPRESSION: Mild left hydronephrosis. The left ureter is dilated however no obstructing stone is visible. Findi ngs could be related to recently passed stone. Additional 11 millimeter stone noted in left renal pe lvis versus within parapelvic cyst. Bladder wall thickening could indicate cystitis. Clinical correlation recommended. RADIATION DOSE DELIVERED: Total DLP DATA REPOSITORY: All CT scans at this facility are submitted to the National Radiology Data Registry (NRDR) Dose Index Registry (DIR) with the [employer] ([employer]). RADIATION OPTIMIZATION: All CT scans at this facility use at least one of these dose optimization te chniques: automated exposure control; mA and/or kV adjustment per patient size (includes targeted exa ms where dose is matched to clinical indication); or iterative reconstruction.
[2023-05-12] MEDS: fentaNYL 100 MCG/2 ML VIAL 50 MCG IVP (19:01)
[2023-05-12] MEDS: ACETAMINOPHEN 1,000 MG/100 ML BTL 400 MG IVPB (19:01)
[2023-05-12] MEDS: Ondansetron 4 MG/2 ML VIAL IVP (19:01)
[2023-05-12 19:04] LABS: Abs Immature Grans 0.04 10^3/uL (0.0-0.06); Absolute Basophil Count 0.06 10^3/uL (0.0-0.2); Absolute Lymphocyte Count 2.12 10^3/uL (1.2-3.4); Absolute Monocyte Count 0.79 10^3/uL (0.1-0.8); Basophils % 0.7; Eosinophils % 3.4; HCT 47.1 % (40.0-50.0); HGB 15.8 g/dL (13.5-17.5); Immature Grans % 0.4; Lymphocytes % 23.8; MCH 31.9 pg (27.0-33.0); MCHC 33.5 % (32.0-36.0); MCV 95 fL (80-95); Monocytes % 8.9; Neutrophils % 62.8; Platelet Count 297 10^3/uL (130-400); RBC 4.96 10^6/uL (4.36-5.78); RDW 13.7 % (11.8-14.1); RDW-SD 46.8 fL; WBC 8.91 10^3/uL (4.4-10.8)
[2023-05-12] MEDS: Normal Saline 500 ML IV (19:07)
[2023-05-12] MEDS: Ketorolac 15 MG/ML VIAL IVP (19:07)
[2023-05-12 19:12] LABS: Anion Gap 10.6 mmol/L (3-11); BUN 16 mg/dL (7-18); CO2 27.4 mmol/L (21.0-32.0); CREATININE 1.1 mg/dL (0.70-1.30); Calcium 9.9 mg/dL (8.5-10.1); Chloride 101 mmol/L (98-107); Estimated GFR 77.33 (mL/min/1.73m2); Glucose 109 mg/dL (74-106); Potassium 3.6 mmol/L (3.5-5.1); Sodium 139 mmol/L (136-145)
[2023-05-12 20:35] LABS: Bilirubin Negative (Negative); Blood Large (Negative); Clarity Clear (Clear); Glucose Negative (Negative); Ketones Negative (Negative); Leukocyte Esterase Negative (Negative); Nitrite Negative (Negative); Urobilinogen 0.2 mg/dL (Up to 0.2)
[2023-05-12 20:42] LABS: Bacteria Rare HPF (Negative); C & S Indicated? No; Casts 0-2 Hyaline LPF (Negative); Crystals Negative HPF (Negative); Epithelial Cells Rare HPF (Negative); Mucus Trace (Negative); RBC 20-50 HPF (0-2); WBC 0-2 HPF (0-5)
--- NOTE | 2023-05-12 21:08 | DI.VRAD_ITS ---
PROCEDURE INFORMATION: Exam: CT Abdomen And Pelvis Without Contrast Exam date and time: 05/12/2023 8:37 PM Age: 57 years old Clinical indication: Abdominal pain; Flank; Left TECHNIQUE: Imaging protocol: Computed tomography of the abdomen and pelvis without contrast. COMPARISON: CT ABD/PELVIS WO W CONTRAST 02/02/2018 8:11 AM FINDINGS: Lungs: Bibasilar atelectasis Liver: Normal. No mass. Gallbladder and bile ducts: Normal. No calcified stones. No ductal dilation. Pancreas: Normal. No ductal dilation. Spleen: Normal. No splenomegaly. Adrenal glands: Normal. No mass. Kidneys and ureters: The left collecting system is dilated 32 mm. In 2018 it was dilated 29 mm. Again noted is a calcific density in the dependent portion of the dilated extrarenal pelvis. It measures 7.4 mm and does not currently obstruct the ureter. It could obstruct the ureter if it migrated more distally when the patient stands. Previously the calculus measured 4.2 mm. Nonobstructing right renal calculi. No right ureteral calculus. The proximal left ureter is dilated and there are surrounding inflammatory changes. The left ureter tapers more distally.. Stomach and bowel: Diverticulosis of the rectosigmoid. No diverticulitis. Appendix: Normal appendix Intraperitoneal space: Unremarkable. No free air. No significant fluid collection. Vasculature: Unremarkable. No abdominal aortic aneurysm. Lymph nodes: Unremarkable. No enlarged lymph nodes. Urinary bladder: Unremarkable as visualized. Reproductive: Unremarkable as visualized. Bones/joints: Unremarkable. No acute fracture. Soft tissues: Unremarkable. IMPRESSION: The left collecting system is dilated 32 mm. In 2018 it was dilated 29 mm. Again noted is a calcific density in the dependent portion of the dilated extrarenal pelvis. It measures 7.4 mm and does not currently obstruct the ureter. It could obstruct the ureter if it migrated more distally when the patient stands. Previously the calculus measured 4.2 mm. The proximal left ureter is dilated and there are surrounding inflammatory changes. The left ureter tapers more distally.. Dictated and Authenticated by: Maryjo Berumen MD. Ordering:AXEL Ingram MD
== END 2023-05-12 21:35 | disposition home or self-care (01) ==
PROVIDERS: Emergency Provider Emergency Medicine; PCP Physician Assistant
DX: N20.1 Calculus of ureter (principal); N23 Unspecified renal colic
CPT/HCPCS: 80048; 96361; 96374; 96375; 99284; 74176; 81003; 81015; 85025; J0131; J1885; J2405; J3010

== ENCOUNTER → 2023-12-01 06:55 | Outpatient (CLI) | payer BC, SELFPAY ==
--- NOTE | 2023-12-01 06:45 | DI.RAD_ITS ---
Exam(s) XR SHOULDER LT COMPLETE 2+V EXAM: XR SHOULDER LT COMPLETE 2+V CLINICAL HISTORY: atraumatic pain x 2 weeks,[id number],traumatic tear lt rotator cuff. TECHNIQUE: 2D digital imaging was performed. Three views. COMPARISON: MR MRI, UPPER EXT, JOINT S/ CONTRA from 04/02/2022 FINDINGS: BONES: No acute fracture is present. No bony destructive lesion is seen. JOINTS: No dislocation present. Mild degenerative changes at the AC joint and glenohumeral joint. SOFT TISSUE: Calcifications noted adjacent to humeral head consistent with calcific tendinosis. IMPRESSION: Mild degenerative changes and calcific tendinosis. DATA REPOSITORY: RADIATION DOSE DELIVERED:
== END ==
PROVIDERS: PCP Physician Assistant; Visit Provider Nurse Practitioner Family
DX: M19.012 Primary osteoarthritis, left shoulder (principal); N20.0 Calculus of kidney
CPT/HCPCS: 73030

== ENCOUNTER 2023-12-02 12:43 | Emergency (ER) | payer BC, SELFPAY ==
[2023-12-02 12:50] VITALS: BP 145/80; PULSE 46; RESP 16; TEMP 36.7; O2SAT 100
[2023-12-02 12:56] VITALS: BP 145/80; PULSE 46; RESP 16; TEMP 36.7; O2SAT 100
--- NOTE | 2023-12-02 12:57 | W.ED.GENAD ---
Discharge Plan Discharge Details Chief Complaint: Urinary Primary Care Provider: Edu Winters ED Provider: Yuliaan Reynolds Home Meds and New Rx's Prescriptions: No Action pantoprazole 40 mg tablet,delayed release (DR/EC) 40 mg PO DAILY cyclobenzaprine 10 mg tablet 10 mg PO BID MDD 2 Qty: 180 3RF Ozempic 0.25 mg or 0.5 mg (2 mg/3 mL) pen injector 0.75 mg subcut QWEEK acetaminophen 500 MG tablet 1,000 mg PO Q8H PRN Qty: 90 0RF Hold Instructions: Resume on 02/13/23. Do not take acetaminophen with hydrocodone/acetaminophen aspirin 81 mg tablet,delayed release (DR/EC) 81 mg PO DAILY Qty: 240 8RF metoprolol succinate 100 mg tablet extended release 24 hr 100 mg PO .nightly Qty: 90 3RF atorvastatin 80 mg tablet 80 mg PO DAILY Qty: 90 6RF Entresto 49-51 mg tablet 1 tab PO BID Qty: 180 3RF hydrocodone-acetaminophen 5-325 mg tablet 1 - 2 tab PO Q6H MDD 8 PRN (Reason: pain) Qty: 30 0RF HPI General Date/Time Provider Initiated Documentation: 12/02/23 12:45. Limitations to Documentation: no limitations. Information obtained by: patient, family and RN notes reviewed. History of Present Illness 58 year old M presents to the emergency department with the chief complaint of left flank pain/LLQ pain, described as moderate and similar to prior episodes, with intensity rated at 6. Quality is described as aching and constant, and is localized to the back and abdomen. Patient reports no radiation. Patient started experiencing this day(s) and it has been constant. Immobilization improves symptom(s), Movement worsens symptoms . Patient notes no other symptoms.. Patient did receive the following treatments prior to arrival, none Related Data Home Medications Medication Instructions Recorded Confirmed acetaminophen 500 mg tablet 1,000 mg (2 x 500 mg) PO Q8H PRN 05/22/17 12/02/23 #90 tab-caps aspirin 81 mg tablet,delayed 81 mg PO DAILY #240 tabs 12/21/20 12/02/23 release pantoprazole 40 mg tablet,delayed 40 mg PO DAILY 06/11/21 12/02/23 release metoprolol succinate 100 mg 100 mg PO .nightly #90 tabs 06/16/22 12/02/23 tablet,extended release 24 hr semaglutide 0.25 mg or 0.5 mg (2 0.75 mg subcut QWEEK 02/27/23 12/02/23 mg/3 mL) subcutaneous pen injector (Ozempic) atorvastatin 80 mg tablet 80 mg PO DAILY #90 tabs 04/07/23 12/02/23 cyclobenzaprine 10 mg tablet 10 mg PO BID #180 tabs 04/13/23 12/02/23 sacubitril 49 mg-valsartan 51 mg 1 tab PO BID #180 tabs 09/17/23 12/02/23 tablet (Entresto) hydrocodone 5 mg-acetaminophen 325 1 - 2 tab PO Q6H PRN pain #30 tabs 11/27/23 12/02/23 mg tablet Previous Rx's Medication Instructions Recorded acetaminophen 500 mg tablet 1,000 mg (2 x 500 mg) PO Q8H PRN 05/22/17 #90 tab-caps aspirin 81 mg tablet,delayed 81 mg PO DAILY #240 tabs 12/21/20 release metoprolol succinate 100 mg 100 mg PO .nightly #90 tabs 06/16/22 tablet,extended release 24 hr atorvastatin 80 mg tablet 80 mg PO DAILY #90 tabs 04/07/23 cyclobenzaprine 10 mg tablet 10 mg PO BID #180 tabs 04/13/23 sacubitril 49 mg-valsartan 51 mg 1 tab PO BID #180 tabs 09/17/23 tablet (Entresto) hydrocodone 5 mg-acetaminophen 325 1 - 2 tab PO Q6H PRN pain #30 tabs 11/27/23 mg tablet Allergies Allergy/AdvReac Type Severity Reaction Status Date / Time Penicillins AdvReac Severe GI upset Verified 12/02/23 13:19 lisinopril AdvReac Intermediate cough Verified 12/02/23 13:19 General Stated Complaint: Urinary SHEKHAR: 3 Review of Systems Constitutional Constitutional: Reports as per HPI, Denies chills, Denies fever(s) and Denies headache(s) ENT Ears, Nose, Mouth, and Throat: Denies headache(s) Cardiovascular Cardiovascular: Reports as per HPI, Denies chest pain and Denies dyspnea Respiratory Respiratory: Reports as per HPI, Denies cough and Denies dyspnea Gastrointestinal Gastrointestinal: Reports as per HPI Genitourinary Genitourinary: Reports as per HPI Musculoskeletal Musculoskeletal: Reports as per HPI Neurologic Neurologic: Denies headache(s) Exam Const General: cooperative, healthy appearing, comfortable, no acute distress and well developed Nutritional Appearance: average body habitus and well nourished Orientation: alert and awake HENMT Mouth: moist mucous membranes Resp Effort & Inspection: normal respiratory effort and no respiratory distress Auscultation: clear to auscultation bilaterally, no rales, no rhonchi and no wheezes Cardio Rate: regular rate Rhythm: regular rhythm Heart Sounds: S1 normal and S2 normal GI Inspection: normal to inspection, no edema and non-distended Palpation: soft, no hepatosplenomegaly, no guarding, no hernias, no pulsatile masses and nontender Percussion: normal to percussion Auscultation: normal bowel sounds Back/Spine/Pelvis Back: no CVA tenderness Skin General skin exam: no rashes or lesions noted Neuro General: patient alert and patient awake Cognition: normal cognition Speech: speech normal Gait: normal gait Course Vital Signs Vital signs: Vital Signs Temperature 36.7 C 12/02/23 12:50 Pulse 46 L 12/02/23 12:50 Respiratory Rate 16 12/02/23 12:50 Blood Pressure 145/80 H 12/02/23 12:50 Pulse Oximetry 100 12/02/23 12:50 Temperature 36.7 C 12/02/23 12:50 Pulse 46 L 12/02/23 12:50 Respiratory Rate 16 12/02/23 12:50 Blood Pressure 145/80 H 12/02/23 12:50 Blood Pressure Position Sitting 12/02/23 12:50 Pulse Oximetry 100 12/02/23 12:50 Oxygen Delivery Method Room Air 12/02/23 12:50 Oxygen Flow Rate 0 12/02/23 12:50 Pain Level 6 12/02/23 12:50 Medical Decision Making Patient is a pleasant 58 year old male with PMH of nephrolithiasis, bladder tumor, prediabetes, HTN, GERD, HLD, presenting with chief complaint of left-sided flank pain and lower quadrant abdominal pain. He reports that he has a history of kidney stones. Had 1 removed surgically 3 weeks ago while in [place]. He typically sees Dr. Rudd. Underwent an ultrasound yesterday showing stone and hydronephrosis, recommended CT scan. He reports that the pain is much more continuous than his typical kidney stone pain, patient had several stones historically. Was what prompted him to come in. He has been using Vicodin to help with his discomfort, no relief in his pain with this at home. Is also been using acetaminophen and anti-inflammatories without any relief. He denies any fevers or chills. No nausea or vomiting. No change in bowel or bladder habits. He does state that he is had notable blood in his urine but no change in frequency. No penile pain or pain with urination. On exam, patient appears nontoxic. He is hemodynamically stable. Abdominal exam is benign. He indicates the left lower quadrant as area of pain but pain is not reproducible with palpation. Pain does seem to radiate from the left flank but no CVA tenderness with percussion. Lungs are clear, normal cardiac exam. No peritoneal findings on exam. Patient's history and his progressing symptoms, we will move forward with CT, also obtain baseline labs to ensure appropriate kidney function. Patient declines any analgesics at this time. Labs reviewed. No leukocytosis. Stable H&H. No elevation of creatinine, baseline kidney function. Urine is concerning for blood but no evidence of infection, negative for bacteria. CT concerning for stone. Per radiologist, this appears very similar to stone in the renal pelvis that was noted to be there last fall. Will consult with urology. Spoke with Flower Morales, She advised surgical removal would be appropriate in this patient. However, as patient is on Ozempic, she advised that the patient should be off it for 14 days. Discussed this concern with the patient. He reports that in his last surgery, he was able to have surgery 1 week after having his Ozempic. I spoke with anesthesia who advised that as tomorrow will be 11 days from his last injection, they do feel that it would be appropriate to move forward with surgical intervention. Will consult again with Flower Morales. Spoke with Flower, she is going to try to get patient on the schedule for tomorrow and will call back with plan. Patient will continue to hold on on his Ozempic. Will also need to hold his aspirin if they are able to accommodate him in surgery tomorrow. At the end of the shift, care transition to [facility] with disposition pending. Romero Quality:SDOH Health Related Social Needs: No Data to Display [facility] All Active Problems (Updated 12/01/23 @ 10:55 by Fidelia Espinoza MD) Pain in left rhomboid muscle (Acute) Colon cancer screening (Acute) Chronic prostatitis/chronic pelvic pain syndrome (Acute) Kidney stones (Chronic) Cardiomyopathy (Acute) Frequent PVCs (Acute) Alcohol abuse (Chronic) Hypertension (Chronic) Chest pain (Acute) Angina at rest (Acute) Barretts esophagus (Acute) Coronary artery disease (Chronic) Positional lightheadedness (Acute) Traumatic tear of left rotator cuff (Acute) Blood in stool (Acute) Shortness of breath on exertion (Acute) Medical History History of herniated intervertebral disc surgery to repair 15+ years ago Prediabetes HTN (hypertension) Castellon's esophagus GERD (gastroesophageal reflux disease) HLD (hyperlipidemia) Surgical History S/P bladder tumor excision with fulguration History of colonoscopy (~01/2023) 2014 cystourethroscopy (03/14/13) [facility] EGD - MAC (~01/2023) 2014 Cholecystectomy (~1995) Family History Mother No problems noted. Father No problems noted. Social History Smoking/Tobacco Use Status: Never Smoking risk assessment performed?: Yes Alcohol Intake: current Alcohol Intake frequency: 3 or more drinks per day Alcohol type: wine Drug use: Never Housing: house Current gender identity: male Do you feel safe at home: No Do you feel safe in your relationship?: No Additional Social history: unable to assess privatley
[2023-12-02 13:18] LABS: Abs Immature Grans 0.03 10^3/uL (0.0-0.06); Absolute Basophil Count 0.06 10^3/uL (0.0-0.2); Absolute Eosinophil Count 0.27 10^3/uL (0.0-0.7); Absolute Lymphocyte Count 2.51 10^3/uL (1.2-3.4); Absolute Monocyte Count 0.87 10^3/uL (0.1-0.8); Absolute Neutrophil Count 4.83 10^3/uL (1.2-6.7); Basophils % 0.7 %; Eosinophils % 3.2 %; HCT 49.7 % (40.0-50.0); HGB 16.7 g/dL (13.5-17.5); Immature Grans % 0.4 %; Lymphocytes % 29.3 %; MCH 31.7 pg (27.0-33.0); MCHC 33.6 % (32.0-36.0); MCV 94 fL (80-95); MPV 10.2 fL (8.0-11.0); Monocytes % 10.2 %; Neutrophils % 56.2 %; Platelet Count 350 10^3/uL (130-400); RBC 5.27 10^6/uL (4.36-5.78); RDW 12.8 % (11.8-14.1); RDW-SD 44.4 fL; WBC 8.57 10^3/uL (4.4-10.8)
[2023-12-02 13:37] LABS: Albumin 3.9 g/dL (3.4-5.0); Alkaline Phosphatase 62 U/L (46-116); BUN 12 mg/dL (7-18); Bilirubin, Total 0.4 mg/dL (0.2-1.0); CO2 23.7 mmol/L (21.0-32.0); CREATININE 1.1 mg/dL (0.70-1.30); Chloride 107 mmol/L (98-107); Estimated GFR 76.85 (mL/min/1.73m2); Glucose 78 mg/dL (74-106); Potassium 4.3 mmol/L (3.5-5.1); Sodium 141 mmol/L (136-145); Total Protein 8.2 g/dL (6.4-8.2)
[2023-12-02 13:38] LABS: ALT 43 U/L (16-63); AST 24 U/L (15-37); Anion Gap 10.3 mmol/L (3-11)
--- NOTE | 2023-12-02 13:52 | DI.CT_ITS ---
Exam(s) CT RENAL COLIC WO EXAM: CT RENAL COLIC WO CLINICAL HISTORY: left flank pain, US yesterday. TECHNIQUE: Imaging Protocol: Axial computed tomography images with coronal and sagittal reformatted images were created and reviewed CONTRAST MATERIAL: Intravenous: none Oral: None COMPARISON: CT CT RENAL COLIC WO from 05/12/2023 FINDINGS: VISUALIZED LUNG BASES: No nodules nor pleural effusions evident. ABDOMEN: There is no ascites. LIVER: There are no obvious focal hepatic lesions evident of this noninfused study. GALLBLADDER/BILIARY: Gallbladder again noted be surgically absent. CBD is not dilated. PANCREAS: No evidence of pancreatic mass nor dilatation of the pancreatic duct. SPLEEN: Spleen is not enlarged. No obvious intrasplenic lesions. ADRENALS: There are no significant adrenal masses. KIDNEYS:Right kidney unremarkable. In the left kidney there are 3 separate punctate 1 mm calculi ashu dent, 2 in the lower pole and the other in the midpole. There is an extrarenal pelvis again noted wi th an 8 x 6 mm calculus on its dependent wall. The left ureter below this level exhibits normal diam eter. There is no evidence of calculus in the lower ureter UPJ region nor within the urinary bladder . ABDOMINAL AORTA: Abdominal aorta is not enlarged. LYMPH NODES: There is no retroperitoneal nor paraaortic adenopathy. ABDOMINAL WALL: No evidence of significant anterior abdominal wall nor inguinal hernia. GI: There is no evidence of bowel obstruction, free air, nor abscess. PELVIS: LYMPH NODES: There is no intrapelvic nor inguinal adenopathy. GI: No evidence of appendicitis.There is sigmoid diverticular disease but there is no evidence of acu te diverticulitis. URINARY BLADDER: No calculi nor obvious masses evident REPRODUCTIVE: Prostate not enlarged. Seminal vesicles unremarkable. OSSEOUS: No significant osseous lesions. IMPRESSION: 1. In addition to 3 punctate calculi in the left kidney there is also again noted 8 x 6 millimeter ca lculus in the lower left renal pelvis just above the UPJ. Mild dilatation of the collecting system a anaid this level. The lower part of the left ureter is not dilated. There are no radiopaque calculi in the urinary bladder. No findings in the opposite-right kidney. 2. Previous cholecystectomy. Biliary tree is not dilated. 3. Sigmoid diverticuli without evidence of acute diverticulitis. Called by myself to ER provider. RADIATION DOSE DELIVERED: 1,448.06mGy.cm Total DLP DATA REPOSITORY: All CT scans at this facility are submitted to the National Radiology Data Registry (NRDR) Dose Index Registry (DIR) with the [employer] (A[employer]). RADIATION OPTIMIZATION: All CT scans at this facility use at least one of these dose optimization te chniques: automated exposure control; mA and/or kV adjustment per patient size (includes targeted exa ms where dose is matched to clinical indication); or iterative reconstruction.
[2023-12-02 14:36] LABS: Bilirubin Negative (Negative); Blood Moderate (Negative); Clarity Clear (Clear); Glucose Negative (Negative); Ketones 15 mg/dL (Negative); Leukocyte Esterase Negative (Negative); Nitrite Negative (Negative); Specific Gravity >= 1.030 (1.005-1.025); Urobilinogen 0.2 mg/dL (Up to 0.2)
[2023-12-02 14:52] LABS: Bacteria Negative HPF (Negative); C & S Indicated? No; Casts 0-2 Fine Granular LPF (Negative); Crystals Negative HPF (Negative); Epithelial Cells Rare HPF (Negative); Mucus Moderate (Negative); RBC 20-50 HPF (0-2); WBC 0-2 HPF (0-5)
== END 2023-12-02 16:48 | disposition home or self-care (01) ==
PROVIDERS: Physician Assistant; Emergency Provider Physician Assistant; PCP Nurse Practitioner Family
DX: N20.0 Calculus of kidney (principal); R10.32 Left lower quadrant pain
CPT/HCPCS: 80053; 99284; 74176; 81003; 81015; 85025; 99283

== ENCOUNTER 2023-12-03 08:57 | Day surgery (SDC) | payer BC, SELFPAY ==
[2023-12-03 09:20] VITALS: BP 122/75; PULSE 75; RESP 16; TEMP 36.5; O2SAT 98
--- NOTE | 2023-12-03 09:31 | W.PM.HP.N ---
Date of service: 12/03/23 Time of Service: 09:32 Assessment and Plan Assessment and plan (1) Left renal stone: Status: Acute Assessment and plan: We will plan on placing a new left ureteral stone today to relieve any obstruction associated with the stone. He will require a return to the operating room in about a week for ureteroscopy and holmium laser lithotripsy of his kidney stones. History of Present Illness History of Present Illness Chief Complaint: Left kidney stone Narrative: This is a 58-year-old gentleman who has a past history of kidney stones. He was spending the winter down in [place] when he developed left renal colic. He was seen and an emergency room setting and a CT scan was done. We do not have access to the actual films, but apparently a 7 mm stone was found in his left ureter. He underwent cystoscopy and left ureteroscopy. The patient was under the impression that the stone was fragmented and removed. When I obtained the operative note, it sounds like ureteroscopy was performed just to the level of the pelvic brim. The ureter was described as being dilated but no stone was seen. Flexible ureteroscopy was not performed. The patient has since returned to our area and still has intermittent left flank pain. He was seen in the emergency department yesterday and a CT scan shows a 6 x 8 mm stone in the left renal pelvis. The collecting system was dilated but the ureter is not. He presents now for stent placement. At the time of his cystoscopy down in [place], a bladder tumor was identified. 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 Review of Systems Narrative: No fevers or chills No vision change or dysphasia Diabetes. No thyroid dysfunction No shortness of breath, cough or hemoptysis No chest pain GERD. No hepatitis, ulcers, jaundice, diarrhea or constipation No seizures, strokes or peripheral neuropathy No bleeding disorders or anemia No gout PFSH All Active Problems (Updated 12/03/23 @ 09:36 by Tala Mosqueda) Left renal stone (Acute) Pain in left rhomboid muscle (Acute) Colon cancer screening (Acute) Shortness of breath on exertion (Acute) Blood in stool (Acute) Traumatic tear of left rotator cuff (Acute) Positional lightheadedness (Acute) Coronary artery disease (Chronic) Barretts esophagus (Acute) Angina at rest (Acute) Chest pain (Acute) Hypertension (Chronic) Alcohol abuse (Chronic) Frequent PVCs (Acute) Cardiomyopathy (Acute) Kidney stones (Chronic) Chronic prostatitis/chronic pelvic pain syndrome (Acute) Medical History (Updated 12/03/23 @ 09:36 by Tala Mosqueda) Claustrophobia History of herniated intervertebral disc surgery to repair 15+ years ago Prediabetes HTN (hypertension) Castellon's esophagus GERD (gastroesophageal reflux disease) HLD (hyperlipidemia) Surgical History S/P bladder tumor excision with fulguration History of colonoscopy (~01/2023) 2014 cystourethroscopy (03/14/13) [facility] EGD - MAC (~01/2023) 2013 Cholecystectomy (~1995) Family History Mother No problems noted. Father No problems noted. Social History Smoking/Tobacco Use Status: Never Smoking risk assessment performed?: Yes Alcohol Intake: current Alcohol Intake frequency: 3 or more drinks per day Alcohol type: wine Drug use: Never Housing: house Current gender identity: male Do you feel safe at home: No Do you feel safe in your relationship?: Yes Meds Allergies and Home Medications Allergies Allergy/AdvReac Type Severity Reaction Status Date / Time Penicillins AdvReac Severe GI upset Verified 12/03/23 09:39 lisinopril AdvReac Intermediate cough Verified 12/03/23 09:39 Home Medications Medication Instructions Recorded Confirmed Type acetaminophen 500 mg tablet 1,000 mg (2 x 500 mg) PO Q8H PRN 05/22/17 12/03/23 Rx #90 tab-caps aspirin 81 mg tablet,delayed 81 mg PO DAILY #240 tabs 12/21/20 12/03/23 Rx release pantoprazole 40 mg tablet,delayed 40 mg PO DAILY 06/11/21 12/03/23 History release metoprolol succinate 100 mg 100 mg PO .nightly #90 tabs 06/16/22 12/03/23 Rx tablet,extended release 24 hr semaglutide 0.25 mg or 0.5 mg (2 0.75 mg subcut QWEEK 02/27/23 12/03/23 History mg/3 mL) subcutaneous pen injector (Ozempic) atorvastatin 80 mg tablet 80 mg PO DAILY #90 tabs 04/07/23 12/03/23 Rx cyclobenzaprine 10 mg tablet 10 mg PO BID #180 tabs 04/13/23 12/03/23 Rx sacubitril 49 mg-valsartan 51 mg 1 tab PO BID #180 tabs 09/17/23 12/03/23 Rx tablet (Entresto) hydrocodone 5 mg-acetaminophen 325 1 - 2 tab PO Q6H PRN pain #30 tabs 11/27/23 12/03/23 Rx mg tablet Exam Const General: cooperative and comfortable Neck Neck: supple Resp Effort & Inspection: normal respiratory effort Auscultation: clear to auscultation bilaterally Cardio Rate: regular rate Rhythm: regular rhythm GI Palpation: soft and no masses Neuro General: patient alert, patient awake and patient oriented x3 Time Spent Time spent with Patient: <40 minutes Time was spent: other
[2023-12-03] MEDS: levoFLOXacin 500 MG TAB PO (09:44)
[2023-12-03] MEDS: Lactated Ringers 1,000 ML 80 ML IV (09:46)
--- NOTE | 2023-12-03 10:07 | W.ANESPRE ---
General Info Date of Service Date Performed: 12/03/23 Height: 6 ft 1 in Weight: 118.841 kg Body Mass Index (BMI): 34.5 Surgical Procedure: Operation Date: 12/03/23 09:10 Proposed Procedure Side Surgeon p Cystoscopy/Retrograde/ Stent Placement Alfonso Rudd MD Meds Allergies and Home Medications Allergies Allergy/AdvReac Type Severity Reaction Status Date / Time Penicillins AdvReac Severe GI upset Verified 12/03/23 09:39 lisinopril AdvReac Intermediate cough Verified 12/03/23 09:39 Home Medication Medication Instructions Recorded acetaminophen 500 mg tablet 1,000 mg (2 x 500 mg) PO Q8H PRN 05/22/17 #90 tab-caps aspirin 81 mg tablet,delayed 81 mg PO DAILY #240 tabs 12/21/20 release pantoprazole 40 mg tablet,delayed 40 mg PO DAILY 06/11/21 release metoprolol succinate 100 mg 100 mg PO .nightly #90 tabs 06/16/22 tablet,extended release 24 hr semaglutide 0.25 mg or 0.5 mg (2 0.75 mg subcut QWEEK 02/27/23 mg/3 mL) subcutaneous pen injector (Ozempic) atorvastatin 80 mg tablet 80 mg PO DAILY #90 tabs 04/07/23 cyclobenzaprine 10 mg tablet 10 mg PO BID #180 tabs 04/13/23 sacubitril 49 mg-valsartan 51 mg 1 tab PO BID #180 tabs 09/17/23 tablet (Entresto) hydrocodone 5 mg-acetaminophen 325 1 - 2 tab PO Q6H PRN pain #30 tabs 11/27/23 mg tablet Current Visit Medications: Current Medications Generic Name Dose Route Start Last Admin Trade Name Freq PRN Reason Stop Dose Admin Ringer's Solution 1,000 mls @ 80 mls/hr 12/03/23 06:00 12/03/23 09:46 IV 01/02/24 23:59 80 mls/hr INFUSION LOUANN Administration IV Miscellaneous Supplies 1 each 12/03/23 06:00 Iv Access IV 01/02/24 23:59 DIRECTED LOUANN Levofloxacin 500 mg 12/03/23 08:00 12/03/23 09:44 Levofloxacin 500 Mg Tab PO 12/03/23 16:00 500 mg PREOP LOUANN Administration Sodium Chloride 0 ml 12/03/23 06:00 Normal Saline Flush 10 Ml Syr IV 01/02/24 23:59 PRN PRN Sodium Chloride 0 ml 12/03/23 06:00 Normal Saline 10 Ml Vial IJ 01/02/24 23:59 DIRECTED PRN Sterile Water 0 ml 12/03/23 06:00 Water,Injection,Sterile 10 Ml Vial IJ 01/02/24 23:59 DIRECTED PRN PFSH Active Problems Active Problems: Problem Status Onset Code Left renal stone N20.0 Pain in left rhomboid muscle M79.18 Colon cancer screening Z12.11 Shortness of breath on exertion R06.02 Blood in stool K92.1 Traumatic tear of left rotator cuff S46.012A Positional lightheadedness R42 Coronary artery disease I25.10 Barretts esophagus K22.70 Angina at rest I20.8 Chest pain R07.9 Hypertension I10 Alcohol abuse F10.10 Frequent PVCs I49.3 Cardiomyopathy I42.9 Kidney stones N20.0 Chronic prostatitis/chronic pelvic pain syndrome N41.1, G89.4 Medical History Medical History (Updated 12/03/23 @ 09:36 by Tala Mosqueda) Claustrophobia History of herniated intervertebral disc surgery to repair 15+ years ago Prediabetes HTN (hypertension) Castellon's esophagus GERD (gastroesophageal reflux disease) HLD (hyperlipidemia) Surgical History Surgical History S/P bladder tumor excision with fulguration History of colonoscopy (~01/2023) 2014 cystourethroscopy (03/14/13) [facility] EGD - MAC (~01/2023) 2013 Cholecystectomy (~1995) Tobacco Smoking/Tobacco Use Status: Never Alcohol Alcohol Intake: current Alcohol intake frequency: 3 or more drinks per day Alcohol type: wine Substance Use Substance use: Never Vital Signs and Lab Results Vital Signs Most Recent Vital Signs in EMR: Most Recent Vital Signs Temp Pulse Resp BP Pulse Ox 36.5 C 75 16 122/75 98 12/03/23 09:20 12/03/23 09:20 12/03/23 09:20 12/03/23 09:20 12/03/23 09:20 Lab Results Blood Type / Crossmatch: No Data to Display Complete Blood Count: White Blood Count 8.57 10^3/uL (4.4-10.8) 12/02/23 13:12 Red Blood Count 5.27 10^6/uL (4.36-5.78) 12/02/23 13:12 Hemoglobin 16.7 g/dL (13.5-17.5) 12/02/23 13:12 Hematocrit 49.7 % (40.0-50.0) 12/02/23 13:12 Platelet Count 350 10^3/uL (130-400) 12/02/23 13:12 Complete Metabolic Panel: Sodium 141 mmol/L (136-145) 12/02/23 13:12 Potassium 4.3 mmol/L (3.5-5.1) 12/02/23 13:12 Chloride 107 mmol/L (98-107) 12/02/23 13:12 Carbon Dioxide 23.7 mmol/L (21.0-32.0) 12/02/23 13:12 BUN 12 mg/dL (7-18) 12/02/23 13:12 Creatinine 1.1 mg/dL (0.70-1.30) 12/02/23 13:12 Est GFR (CKD-EPI 2020) 76.85 (mL/min/1.73m2) 12/02/23 13:12 Calcium 9.0 mg/dL (8.5-10.1) 12/02/23 13:12 Albumin 3.9 g/dL (3.4-5.0) 12/02/23 13:12 Glucose 78 mg/dL (74-106) 12/02/23 13:12 Liver Function Panel: Alanine Aminotransferase (ALT/SGPT) 43 U/L (16-63) 12/02/23 13:12 Aspartate Amino Transf (AST/SGOT) 24 U/L (15-37) 12/02/23 13:12 Coagulation Panel: No Data to Display Cardiac Panel: No Data to Display Arterial Blood Gas: No Data to Display Venous Blood Gas: No Data to Display Pancreas Panel: No Data to Display Thyroid Panel: No Data to Display Infectious Disease: No Data to Display Blood Cultures: No Data to Display Toxicology Panel: No Data to Display Anesthesia Assessment and Plan Anesthesia History Personal History: No History of Anesthesia Complications Family History: No Family History of Anesthesia Complications Exercise Tolerance Exercise Tolerance: Metabolic Equivalents>4 Pertinent Negatives Pertinent Negatives: No Symptoms of GERD, No Major Pulmonary Symptoms or Complaints and No History of CVA/TIA Cardiac & Pulmonary Exam Cardiac Exam: Normal S1/S2 Heart Sounds Pulmonary Exam: Clear Bilateral Breath Sounds Implantable Cardiac Device Does patient have a Pacemaker or an ICD?: No Airway Exam Known Difficult Airway: No Mallampati Class: 2 Mouth Opening: Normal (> 3cm) Thyromental Distance: Greater than 3 cm Neck Range of Motion: Full ROM Neck Circumference: Normal Teeth Condition: Normal Dentition ASA Classification ASA Score: ASA 2 Emergency Case?: No NPO Status NPO Status: NPO Clears >2 hours, Solids >8 hours Anesthesia Plan Resuscitation Status: Full Code Anesthesia Technique: General Anesthesia Airway Planned: Natural Airway Monitors Used: Standard Monitors
[2023-12-03 10:09] VITALS: BMI 34.5
[2023-12-03] MEDS: Lidocaine 2% Jelly 11 ML SYR (10:49)
[2023-12-03] MEDS: Omnipaque 300 MG/ML 50 ML BTL (10:50)
--- NOTE | 2023-12-03 10:59 | DI.RAD_ITS ---
Exam(s) XR RETROGRADE IN OR EXAM: XR RETROGRADE IN OR CLINICAL HISTORY: left kidney stone. TECHNIQUE: Fluoroscopy was provided for the referring physician for guidance with performing retrogr audi procedure. COMPARISON: CT CT RENAL COLIC WO from 12/02/2023 FINDINGS: Please see procedure note for details. Fluoro time: 12.9 seconds RADIATION DOSE DELIVERED: niya Hua=8.28 mGy
--- NOTE | 2023-12-03 11:03 | W.PM.DSUDISC ---
Date of service: 12/03/23 Time of Service: 11:03 Discharge Plan Disposition Patient Disposition: Home Discharge Details Reason For Visit: Kidney stone Attending Provider: Alfonso Rudd Primary Care Provider: Edu Winters Home Meds and New Rx's Prescriptions: No Action pantoprazole 40 mg tablet,delayed release (DR/EC) 40 mg PO DAILY cyclobenzaprine 10 mg tablet 10 mg PO BID MDD 2 Qty: 180 3RF Ozempic 0.25 mg or 0.5 mg (2 mg/3 mL) pen injector 0.75 mg subcut QWEEK acetaminophen 500 MG tablet 1,000 mg PO Q8H PRN Qty: 90 0RF Hold Instructions: Resume on 02/13/23. Do not take acetaminophen with hydrocodone/acetaminophen aspirin 81 mg tablet,delayed release (DR/EC) 81 mg PO DAILY Qty: 240 8RF metoprolol succinate 100 mg tablet extended release 24 hr 100 mg PO .nightly Qty: 90 3RF atorvastatin 80 mg tablet 80 mg PO DAILY Qty: 90 6RF Entresto 49-51 mg tablet 1 tab PO BID Qty: 180 3RF hydrocodone-acetaminophen 5-325 mg tablet 1 - 2 tab PO Q6H MDD 8 PRN (Reason: pain) Qty: 30 0RF Discharge Instructions Additional Instructions: Stay off Ozempic until all surgical procedures are completed My office will contact you with a date for ureteroscopy and holmium laser lithotripsy of your left kidney stone no need to strain urine in meantime Activity:: Activity as Tolerated Shower/Bathe:: 24 hours Diet:: As Tolerated Discharge Orders Discharge Orders: Discharge Order (Routine); Ordered 12/03/23 Ordered By: Alfonso Rudd DS: Diagnosis Discharge Diagnosis (1) Left renal stone: Status: Acute
--- NOTE | 2023-12-03 11:08 | W.PM.OP ---
Date of service: 12/03/23 Time of Service: 11:08 Operative Note Operative Note DATE OF PROCEDURE: 12/03/23 PRE-OP DIAGNOSIS: Left kidney stone POST-OP DIAGNOSIS: same PROCEDURE: cystoscopy, left retrograde pyelogram, insert left ureteral stent SURGEON: Alfonso Rudd ANESTHESIA TYPE: Local By Surgeon and General:No Airway Refer to Anesthesia Record ESTIMATED BLOOD LOSS: 5 PATHOLOGY: none sent COMPLICATIONS: None Patient was transported to: same day Patient's condition: stable Implants: 6 Kittitian by 22 to 30 cm ureteral stent Indications: This is a 58-year-old gentleman who has a past history of kidney stones. He had an episode of renal colic while he was in [place] this past winter. He underwent ureteroscopy but no stone treatment was performed. Based on the records that I have access to, it was felt that he had a 7 mm left ureteral stone causing his symptoms. He has since returned to our area and has persistent intermittent left flank pain. He was seen in the emergency department yesterday and a 6 x 8 mm stone remains in the left renal pelvis. He presents now for stent placement in preparation for a ureteroscopy in a week or 2 Findings: filling defect in left renal pelvis Procedure Description: The patient was brought to the operating room on 12/03/2023. He was given preoperative oral antibiotics. After successful induction of general anesthesia without intubation, he was placed in the dorsal lithotomy position. His genitalia was prepped with Betadine and Lithotomy drapes were positioned. 2% Xylocaine jelly was instilled into the urethra to act as a local anesthetic. A 22 Kittitian rigid cystoscope was passed through the urethra into the bladder. The urethra and bladder were inspected with the 30 degree lens. The pendulous, bulbar and membranous urethra appeared normal with no strictures. The prostatic urethra showed some lateral lobe enlargement but no significant median lobe. The bladder neck was entered and the bladder mucosa was inspected. Both ureteral orifices appeared normal with no blood coming from either side. The left orifice was cannulated with a 5 Kittitian access catheter and a retrograde pyelogram was obtained by injecting Omnipaque through the access catheter under fluoroscopic guidance. The ureter appeared normal throughout its length. The renal pelvis was a bit dilated and there was a filling defect seen in the renal pelvis. The filling defect is consistent with the stone that was identified. I then passed a guidewire through the lumen of the access catheter and the catheter was removed. We passed a 6 Kittitian variable length stent over the wire. The proximal end of the stent was curled in the renal pelvis and the distal end was curled within the bladder. The positioning of the stent was confirmed both fluoroscopically and cystoscopically. The patient tolerated this procedure well with no complications. The bladder was emptied and the cystoscope was withdrawn. We will make arrangements for a return trip to the operating room for ureteroscopy and holmium laser lithotripsy of his known left kidney stone.
[2023-12-03 11:10] VITALS: BP 104/82; PULSE 98; RESP 18; TEMP 36.4; O2SAT 92
[2023-12-03 11:35] VITALS: BP 130/81; PULSE 79; RESP 16; TEMP 36.4; O2SAT 96
[2023-12-03] MEDS: HYDROcodone 5/Acetaminophen 325 TAB PO ×2 (11:45→12:24)
[2023-12-03] MEDS: Phenazopyridine 200 MG TAB PO (11:45)
--- NOTE | 2023-12-03 11:55 | W.ANESPOSTOP ---
Postoperative Evaluation Date, Time and Location Date Performed: 12/03/23 Time Performed: 11:55 Patient Location: Day Surgery Unit Vital Signs Most Recent Imported Vital Signs: Most Recent Vital Signs Temp Pulse Resp BP Pulse Ox 36.4 C L 98 H 18 104/82 92 12/03/23 11:10 12/03/23 11:10 12/03/23 11:10 12/03/23 11:10 12/03/23 11:10 Pain Score Most Recent Pain Score: Most Recent Pain Score Pain Level 3 12/03/23 09:20 Assessment Mental Status: Awake (Alert & Oriented to Patient Baseline) Airway and Respiratory Function: Patent airway with normal (patient baseline) respiratory exam Cardiovascular Function: Hemodynamically Stable Hydration Status: Adequately Hydrated Nausea & Vomiting: No Nausea or Vomiting Pain: Pain is tolerable per patient Peripheral Nerve Block: Patient did not receive a nerve block
[2023-12-03 12:50] VITALS: BP 132/92; PULSE 77; RESP 16; O2SAT 98
== END 2023-12-03 13:00 | disposition home or self-care (01) ==
PROVIDERS: PCP Nurse Practitioner Family; Visit Provider Urology
PROC: (CPT 74450; principal; 2023-12-03 09:00)
DX: N20.0 Calculus of kidney (principal)
CPT/HCPCS: 52332; 74420; J1885; J2250; J2405; J2704; Q9967

== ENCOUNTER 2023-12-12 07:29 | Emergency (ER) | payer BC, SELFPAY ==
[2023-12-12] VITALS (9 sets, daily range): BP systolic 103–147; BP diastolic 48–79; PULSE 45–83; RESP 18; TEMP 36.6; O2SAT 96–97
--- NOTE | 2023-12-12 07:30 | DI.RAD_ITS ---
Exam(s) XR ABDOMEN FLAT PLATE EXAM: 2D digital imaging was performed. CLINICAL HISTORY: Left renal stent hydro. COMPARISON: CT CT RENAL COLIC WO from 12/02/2023 XA XR RETROGRADE IN OR from 12/03/2023 TECHNIQUE: Supine views of the abdomen was performed. Four images were obtained. FINDINGS: LUNG BASES: Not clearly included on this examination. BOWEL GAS PATTERN: Nondistended. FREE AIR: None. CALCIFICATIONS: There is a left nephroureteral stent in place. There is a 1.1 cm calcification overl stevne the left L3 transverse process and adjacent to the proximal stent. This is consistent with the patient's known proximal left ureteral stone. OSSEOUS STRUCTURES: Normal for age. OTHER FINDINGS: None. IMPRESSION: There is a left nephroureteral stent in place. There is again seen a 1.1 cm renal stone adjacent to the proximal ureter. This corresponds to the stone seen on the CT scan of the abdomen from 12/02/2023. DATA REPOSITORY: RADIATION DOSE DELIVERED:
--- NOTE | 2023-12-12 07:31 | W.ED.GENAD ---
Discharge Plan Disposition Patient Disposition: Home Discharge Details Clinical Impression: Clot hematuria, Ureterolithiasis Primary Care Provider: Edu Winters ED Provider: Juan Jose Camargo Home Meds and New Rx's Prescriptions: Continued pantoprazole 40 mg tablet,delayed release (DR/EC) 40 mg PO DAILY cyclobenzaprine 10 mg tablet 10 mg PO BID MDD 2 Qty: 180 3RF Ozempic 0.25 mg or 0.5 mg (2 mg/3 mL) pen injector 0.75 mg subcut QWEEK acetaminophen 500 MG tablet 1,000 mg PO Q8H PRN Qty: 90 0RF Hold Instructions: Resume on 02/13/23. Do not take acetaminophen with hydrocodone/acetaminophen aspirin 81 mg tablet,delayed release (DR/EC) 81 mg PO DAILY Qty: 240 8RF metoprolol succinate 100 mg tablet extended release 24 hr 100 mg PO .nightly Qty: 90 3RF atorvastatin 80 mg tablet 80 mg PO DAILY Qty: 90 6RF Entresto 49-51 mg tablet 1 tab PO BID Qty: 180 3RF oxybutynin chloride 5 mg tablet 5 mg PO TID Rx Instructions: One tab po TID PRN for bladder spasms #30 w/ no refills. 12/04/2023 hydrocodone-acetaminophen 5-325 mg tablet 1 - 2 tab PO Q6H MDD 8 PRN (Reason: pain) Qty: 20 0RF Discharge Instructions Instructions: Hematuria (ED) Additional Instructions: You are seen in the emergency department for your flank pain. Your x-ray shows that your stent is in good position. Please follow-up as previously scheduled in 2 days by your urologist. Please return to the emergency department if you develop worsening pain. For your pain please take medications as follows: 1. Take acetaminophen (Tylenol), 1,000 mg (two 500 mg tabs) every 6 hours [2. Take ibuprofen (Advil), 400 mg every 6 hours.] You also received a stronger prescription medicine. Please do not drink alcohol or operate any heavy machinery or drive while taking this stronger medicine. If you take more than 1 oxycodone tablet please start a stool softener. You are also receiving a prescription for nausea medicine. Discharge Data Discharge Date/Time-TO BE ENTERED AT DEPARTURE: 12/12/23 12:04 HPI General Date/Time Provider Initiated Documentation: 12/12/23 07:31. HPI Narrative: MDM This is overall very well-appearing normothermic and not tachycardic 58-year-old male with recent left ureteral stent now with left-sided hydronephrosis and persistent pain with hematuria concerning for stent malfunction for which patient will undergo KUB and urological consultation. No pain out of proportion to suggest necrotizing soft tissue infection. Not hypotensive nor with a history of AAA to suggest ruptured AAA. No chest pain to suggest ACS so I did not obtain a troponin. No right lower quadrant tenderness to suggest appendicitis. No diarrhea to suggest diverticulitis. No epigastric pain to suggest pancreatitis I did not obtain a lipase. No rash to flank to suggest zoster. Not a vascular patient so doubt splenic arterial aneurysm. Patient does not septic so I did not order broad-spectrum antibiotics lactate nor blood cultures. Will provide analgesia with acetaminophen and morphine given hematuria. Not anticoagulated so no indication for reversal. I considered SBO however the patient has not been vomiting so I do not feel he requires CT scan. Patient is scheduled for uterscopy and lithotripsy in 2 days. 8:30 AM Patient metabolic panel shows very mild anion gap with mild hyperglycemia but normal bicarbonate??not consistent with DKA. No SIMA. CBC lacks anemia thrombocytopenia and leukocytosis. Per nursing patient reportedly had difficult IV access. I placed a right basilic vein of forearm 20-gauge IV under real-time ultrasound guidance. Placement was confirmed via bubble study. Sterile probe cover was used. Prior to IV insertion area was cleaned with chlorhexidine wipe. Patient tolerated procedure well. 10:15 AM Urinalysis nitrite negative not consistent with UTI. Patient does have large hematuria. 10:46 PM I spoke to Dr. Cho from urology at [facility]. He encouraged fluid. He reports the clot hematuria was not unexpected. He reported no indication for emergent urethoscopy. No urological contradications for ketorolac. He advised analgesia and either discharge home versus hospitalization on the medical service. He reported no indication for emergent transfer. 11:45 AM Patient had well-controlled pain. I offered him hospitalization but he declined. I advised that he should return to the emergency department if he had uncontrolled pain. I wrote him for a short course of oxycodone and ondansetron. Will advised scheduled low-dose ibuprofen. Patient understood his return indications and was discharged with empiric trial of expectant outpatient management. He will have his lithotripsy performed on Thursday morning. Chronic conditions affecting the care of the patient: Elevated BMI History obtained from an outside historian: N/A External record review: N/A Medications: Acetaminophen morphine Social determinants of health affecting disposition: N/A Management discussed with: [facility] urology Treatment/interventions considered: N/A Response to therapies provided: Improved symptoms in the ED HPI This is a 58-year-old male who is 9 days status post left ureteral stent arrived to the emergency department via private vehicle in the setting of left flank pain. Patient reports that 9 days ago he had a left ureteral stent placed by Dr. Rudd from urology. He said persistence and worsening pain. He did not take any of his home medications today. He denies fevers chills but he does feel nauseous. He has not been vomiting. He has had no diarrhea. He routinely drinks ethanol but denies tobacco and illicits. He is not anticoagulated. He denies cough chest pain shortness of breath. Exam General: Well-appearing in no acute distress speaking in complete sentences. Head: Normocephalic, atraumatic. Eye: Extraocular eye movements intact. No conjunctival injection. No scleral icterus. Ear, nose, mouth, throat: Grossly normal inspection. Normal voice, handling secretions normally. Neck: Trachea midline. Cardiovascular: Well-perfused distal extremities. Respiratory: Nonlabored respiration. Gastrointestinal: Nondistended abdomen. Mild left lower quadrant tenderness. No rebound. No guarding. No rash to abdomen. Musculoskeletal: No edema. Moving all 4 extremities spontaneously. Skin: Normal for age and race, grossly normal temperature and turgor. No acute rash. Neurologic: Alert and appropriate, no apparent acute deficits. Psychiatric: Mood and manner are appropriate. Grooming and personal hygiene are appropriate. Related Data Home Medications Medication Instructions Recorded Confirmed acetaminophen 500 mg tablet 1,000 mg (2 x 500 mg) PO Q8H PRN 05/22/17 12/12/23 #90 tab-caps aspirin 81 mg tablet,delayed 81 mg PO DAILY #240 tabs 12/21/20 12/12/23 release pantoprazole 40 mg tablet,delayed 40 mg PO DAILY 06/11/21 12/12/23 release metoprolol succinate 100 mg 100 mg PO .nightly #90 tabs 06/16/22 12/12/23 tablet,extended release 24 hr semaglutide 0.25 mg or 0.5 mg (2 0.75 mg subcut QWEEK 02/27/23 12/12/23 mg/3 mL) subcutaneous pen injector (Ozempic) atorvastatin 80 mg tablet 80 mg PO DAILY #90 tabs 04/07/23 12/12/23 cyclobenzaprine 10 mg tablet 10 mg PO BID #180 tabs 04/13/23 12/12/23 sacubitril 49 mg-valsartan 51 mg 1 tab PO BID #180 tabs 09/17/23 12/12/23 tablet (Entresto) oxybutynin chloride 5 mg tablet 5 mg PO TID 12/04/23 12/12/23 hydrocodone 5 mg-acetaminophen 325 1 - 2 tab PO Q6H PRN pain #20 tabs 12/09/23 12/12/23 mg tablet Previous Rx's Medication Instructions Recorded acetaminophen 500 mg tablet 1,000 mg (2 x 500 mg) PO Q8H PRN 05/22/17 #90 tab-caps aspirin 81 mg tablet,delayed 81 mg PO DAILY #240 tabs 12/21/20 release metoprolol succinate 100 mg 100 mg PO .nightly #90 tabs 06/16/22 tablet,extended release 24 hr atorvastatin 80 mg tablet 80 mg PO DAILY #90 tabs 04/07/23 cyclobenzaprine 10 mg tablet 10 mg PO BID #180 tabs 04/13/23 sacubitril 49 mg-valsartan 51 mg 1 tab PO BID #180 tabs 09/17/23 tablet (Entresto) hydrocodone 5 mg-acetaminophen 325 1 - 2 tab PO Q6H PRN pain #20 tabs 12/09/23 mg tablet Allergies Allergy/AdvReac Type Severity Reaction Status Date / Time Penicillins AdvReac Severe GI upset Verified 12/12/23 07:38 lisinopril AdvReac Intermediate cough Verified 12/12/23 07:38 General SHEKHAR: 3 Medical Decision Making Quality:SDOH Health Related Social Needs: No Data to Display PFSH All Active Problems (Updated 12/12/23 @ 10:06 by Juan Jose Camargo MD) Ureterolithiasis (Acute) Clot hematuria (Acute) Left renal stone (Acute) Pain in left rhomboid muscle (Acute) Colon cancer screening (Acute) Shortness of breath on exertion (Acute) Blood in stool (Acute) Traumatic tear of left rotator cuff (Acute) Positional lightheadedness (Acute) Coronary artery disease (Chronic) Barretts esophagus (Acute) Angina at rest (Acute) Chest pain (Acute) Hypertension (Chronic) Alcohol abuse (Chronic) Frequent PVCs (Acute) Cardiomyopathy (Acute) Kidney stones (Chronic) Chronic prostatitis/chronic pelvic pain syndrome (Acute) Medical History (Updated 12/12/23 @ 10:06 by Juan Jose Camargo MD) Claustrophobia History of herniated intervertebral disc surgery to repair 15+ years ago Prediabetes HTN (hypertension) Castellon's esophagus GERD (gastroesophageal reflux disease) HLD (hyperlipidemia) Surgical History S/P bladder tumor excision with fulguration History of colonoscopy (~01/2023) 2014 cystourethroscopy (03/14/13) [facility] EGD - MAC (~01/2023) 2013 Cholecystectomy (~1995) Family History Mother No problems noted. Father No problems noted. Social History Smoking/Tobacco Use Status: Never Smoking risk assessment performed?: Yes Alcohol Intake: current Alcohol Intake frequency: a few times a week Alcohol type: wine Drug use: Never Substance use type: does not use Housing: house Current gender identity: male Do you feel safe at home: Yes Do you feel safe in your relationship?: Yes POCUS Exam (ED) Limited Retroperitoneal(Renal)Exam DATE OF EXAM: 12/12/23 TIME OF EXAM: 08:34 PROVIDER THAT PERFORMED THE STUDY: Juan Jose Camargo IS THIS A REPEAT EXAM DURING THIS ENCOUNTER: No REASON FOR EXAM: Flank pain/left side VISUALIZED STRUCTURES: Left kidney, Right kidney and Other (Bladder) structures: Kidneys bladder PERTINENT FINDINGS/IMPRESSION: Hydronephrosis present left side DIFFERENTIAL DIAGNOSES: Left hydronephrosis moderate. No obvious UVJ stone. Exam complete Limited Soft Tissue Exam DATE OF EXAM: 12/12/23
[2023-12-12 08:07] LABS: Abs Immature Grans 0.03 10^3/uL (0.0-0.06); Absolute Basophil Count 0.07 10^3/uL (0.0-0.2); Absolute Eosinophil Count 0.41 10^3/uL (0.0-0.7); Absolute Lymphocyte Count 2.17 10^3/uL (1.2-3.4); Absolute Monocyte Count 0.78 10^3/uL (0.1-0.8); Absolute Neutrophil Count 5.19 10^3/uL (1.2-6.7); Basophils % 0.8 %; Eosinophils % 4.7 %; HCT 44.6 % (40.0-50.0); HGB 15.1 g/dL (13.5-17.5); Immature Grans % 0.3 %; Lymphocytes % 25.1 %; MCH 31.7 pg (27.0-33.0); MCHC 33.9 % (32.0-36.0); MCV 94 fL (80-95); MPV 10.1 fL (8.0-11.0); Neutrophils % 60.1 %; Platelet Count 331 10^3/uL (130-400); RBC 4.77 10^6/uL (4.36-5.78); RDW 12.3 % (11.8-14.1); RDW-SD 42.8 fL; WBC 8.65 10^3/uL (4.4-10.8)
[2023-12-12 08:14] LABS: BUN 14 mg/dL (7-18); CREATININE 0.8 mg/dL (0.70-1.30); Calcium 8.7 mg/dL (8.5-10.1); Chloride 107 mmol/L (98-107); Estimated GFR 101.32 (mL/min/1.73m2); Glucose 109 mg/dL (74-106); Potassium 4.2 mmol/L (3.5-5.1); Sodium 143 mmol/L (136-145)
[2023-12-12] MEDS: Normal Saline 500 ML IV (08:42)
[2023-12-12] MEDS: ACETAMINOPHEN 1,000 MG/100 ML BTL 400 MG IVPB (08:43)
[2023-12-12] MEDS: MORPHine 4 MG/ML SYR IVP ×2 (08:44→09:43)
[2023-12-12] MEDS: Ondansetron 4 MG/2 ML VIAL IVP (08:45)
--- NOTE | 2023-12-12 09:37 | DI.VRAD_ITS ---
PROCEDURE INFORMATION: Exam: XR Abdomen Exam date and time: 12/12/2023 8:57 AM Age: 58 years old Clinical indication: Device placement; Non-vascular device; Other: Renal shunt; Prior surgery; Surgery date: 3-7 days post-operative; Surgery type: Shunt placement; Patient HX: HX nephrolitiasis TECHNIQUE: Imaging protocol: Radiologic exam of the abdomen. Views: Frontal supine view of the abdomen. 1 View. COMPARISON: CT ABD/PELVIS WO W CONTRAST 02/02/2018 8:11 AM FINDINGS: Gastrointestinal tract: Normal. No bowel dilation. Intraperitoneal space: Ureteral stent extends from the left mid abdomen to the pelvis. There is a 11.7 mm calculus adjacent to the proximal aspect of the stent. Bones/joints: Unremarkable. IMPRESSION: Ureteral stent extends from the left mid abdomen to the pelvis. There is a 11.7 mm calculus adjacent to the proximal aspect of the stent. Dictated and Authenticated by: Maryjo Berumen MD. Ordering:AXEL Ingram MD
[2023-12-12 09:42] LABS: Bilirubin Negative (Negative); Blood Large (Negative); Clarity Sl Cloudy (Clear); Glucose Negative (Negative); Ketones Negative (Negative); Leukocyte Esterase Small (Negative); Nitrite Negative (Negative); Urobilinogen 0.2 mg/dL (Up to 0.2); pH 6.5 (5-8)
[2023-12-12 09:48] LABS: Epithelial Cells Rare HPF (Negative); RBC 20-50 HPF (0-2)
[2023-12-12 09:49] LABS: Bacteria Rare HPF (Negative); C & S Indicated? No; Casts Negative LPF (Negative); Crystals Negative HPF (Negative); Mucus Trace (Negative)
[2023-12-12] MEDS: Ketorolac 15 MG/ML VIAL IVP (11:17)
[2023-12-12] MEDS: Ondansetron O.D.T. 4 MG TABEF, 3 TABS/BTL PO (12:04)
== END 2023-12-12 12:04 | disposition home or self-care (01) ==
PROVIDERS: Emergency Provider Emergency Medicine; PCP Nurse Practitioner Family
DX: N20.0 Calculus of kidney (principal); I10 Essential (primary) hypertension; E78.5 Hyperlipidemia, unspecified; Z79.82 Long term (current) use of aspirin; Z96.0 Presence of urogenital implants
CPT/HCPCS: 36415; 76775; 80048; 96361; 96374; 96375; 96376; 99285; 74018; 81003; 81015; 85025; 99284; J0131; J1885; J2270; J2405

== ENCOUNTER 2023-12-14 13:42 | Observation (INO) | payer BC, SELFPAY ==
[2023-12-14] VITALS (35 sets, daily range): BP systolic 103–177; BP diastolic 58–109; PULSE 52–108; RESP 13–24; TEMP 36.3–37.6; O2SAT 91–100; BMI 34.3
[2023-12-14] MEDS: Lactated Ringers 1,000 ML 80 ML IV ×3 (06:38→16:10)
[2023-12-14] MEDS: levoFLOXacin 500 MG TAB PO (06:42)
--- NOTE | 2023-12-14 06:45 | DI.RAD_ITS ---
Exam(s) XR RETROGRADE IN OR EXAM: XR RETROGRADE IN OR CLINICAL HISTORY: KIDNEY STONES TECHNIQUE: 2D and realtime digital imaging was performed. CONTRAST MATERIAL: Refer to procedure report. COMPARISON: CT CT RENAL COLIC WO from 12/02/2023 CR,XR XR ABDOMEN FLAT PLATE from 12/12/2023 FINDINGS: Fluoroscopy was provided for Dr. Rudd during the performance of a retrograde evaluation of the raimundo l collecting system. Please refer to the procedure report for complete details. Kar=19.3 mGy IMPRESSION: RADIATION DOSE DELIVERED: 0.0 0.0 0
--- NOTE | 2023-12-14 06:47 | HPE_ITS ---
Date of service: 12/14/23 Time of Service: 06:48 Assessment and Plan Assessment and plan (1) Left renal stone: Status: Acute Assessment and plan: We will plan to do cystoscopy with stent removal, left ureteroscopy with holmium laser lithotripsy and extraction of stone fragments History of Present Illness History of Present Illness Chief Complaint: Left kidney stone Narrative: This is a 58-year-old gentleman who has a history of kidney stones. He has had a several month history of intermittent left flank and abdominal pain. He was diagnosed as having a left ureteral stone when he was in [place]. He had a ureteroscopy but according to the reports, the ureteroscope was passed up to the level of the pelvic brim. His stone was at the [facility]. He then returned to our area and has had persistent flank pain. He presented to our emergency department and was found to have left hydronephrosis and a stone in the left renal pelvis. We placed a ureteral stent for symptomatic relief of his pain. He presents now for ureteroscopy and holmium laser lithotripsy of his known left kidney stone. Since his stent placement, he did have a trip to the emergency department with concerns for hematuria and persistent pain. A KUB showed that his stent was in good position. When he had his ureteroscopy done in [place], he was found to have a low-grade, noninvasive urothelial cell carcinoma of the bladder. He will be due for surveillance cystoscopy in about 3 months. Review of Systems Narrative: No fevers or chills No vision change or dysphasia No diabetes or thyroid dysfunction No shortness of breath, cough or hemoptysis No chest pain or palpitations Barretts esophagus/GERD. No hepatitis or jaundice. No seizures, strokes or peripheral neuropathy No bleeding disorders or anemia No gout PFSH All Active Problems (Updated 12/12/23 @ 10:06 by Juan Jose Camargo MD) Ureterolithiasis (Acute) Clot hematuria (Acute) Left renal stone (Acute) Pain in left rhomboid muscle (Acute) Colon cancer screening (Acute) Shortness of breath on exertion (Acute) Blood in stool (Acute) Traumatic tear of left rotator cuff (Acute) Positional lightheadedness (Acute) Coronary artery disease (Chronic) Barretts esophagus (Acute) Angina at rest (Acute) Chest pain (Acute) Hypertension (Chronic) Alcohol abuse (Chronic) Frequent PVCs (Acute) Cardiomyopathy (Acute) Kidney stones (Chronic) Chronic prostatitis/chronic pelvic pain syndrome (Acute) Medical History (Updated 12/12/23 @ 10:06 by Juan Jose Camargo MD) Claustrophobia History of herniated intervertebral disc surgery to repair 15+ years ago Prediabetes HTN (hypertension) Castellon's esophagus GERD (gastroesophageal reflux disease) HLD (hyperlipidemia) Surgical History S/P bladder tumor excision with fulguration History of colonoscopy (~01/2023) 2014 cystourethroscopy (03/14/13) [facility] EGD - MAC (~01/2023) 2013 Cholecystectomy (~1995) Family History Mother No problems noted. Father No problems noted. Social History Smoking/Tobacco Use Status: Never Smoking risk assessment performed?: Yes Alcohol Intake: current Alcohol Intake frequency: a few times a week Alcohol type: wine Drug use: Never Substance use type: does not use Housing: house Current gender identity: male Do you feel safe at home: Yes Do you feel safe in your relationship?: Yes Meds Allergies and Home Medications Allergies Allergy/AdvReac Type Severity Reaction Status Date / Time Penicillins AdvReac Severe GI upset Verified 12/14/23 06:13 lisinopril AdvReac Intermediate cough Verified 12/14/23 06:13 Home Medications Medication Instructions Recorded Confirmed Type acetaminophen 500 mg tablet 1,000 mg (2 x 500 mg) PO Q8H PRN 05/22/17 12/14/23 Rx #90 tab-caps aspirin 81 mg tablet,delayed 81 mg PO DAILY #240 tabs 12/21/20 12/14/23 Rx release pantoprazole 40 mg tablet,delayed 40 mg PO DAILY 06/11/21 12/14/23 History release metoprolol succinate 100 mg 100 mg PO .nightly #90 tabs 06/16/22 12/14/23 Rx tablet,extended release 24 hr semaglutide 0.25 mg or 0.5 mg (2 0.75 mg subcut QWEEK 02/27/23 12/12/23 History mg/3 mL) subcutaneous pen injector (Ozempic) atorvastatin 80 mg tablet 80 mg PO DAILY #90 tabs 04/07/23 12/14/23 Rx cyclobenzaprine 10 mg tablet 10 mg PO BID #180 tabs 04/13/23 12/14/23 Rx sacubitril 49 mg-valsartan 51 mg 1 tab PO BID #180 tabs 09/17/23 12/14/23 Rx tablet (Entresto) oxybutynin chloride 5 mg tablet 5 mg PO TID 12/04/23 12/14/23 History hydrocodone 5 mg-acetaminophen 325 1 - 2 tab PO Q6H PRN pain #20 tabs 12/09/23 12/14/23 Rx mg tablet Exam Const General: cooperative Neck Neck: supple Resp Effort & Inspection: normal respiratory effort Auscultation: clear to auscultation bilaterally Cardio Rate: regular rate Rhythm: regular rhythm GI Palpation: soft and no masses Neuro General: patient alert, patient awake and patient oriented x3 Results Last Vital Signs Temp 36.3 C L 12/14/23 06:18 Pulse 77 12/14/23 06:18 Resp 16 12/14/23 06:18 BP 123/78 12/14/23 06:18 Pulse Ox 97 12/14/23 06:18 Time Spent Time spent with Patient: <40 minutes Time was spent: other
--- NOTE | 2023-12-14 07:05 | W.ANESPRE ---
General Info Date of Service Date Performed: 12/14/23 Height: 6 ft 1 in Weight: 118 kg Body Mass Index (BMI): 34.3 Surgical Procedure: Operation Date: 12/14/23 07:40 Proposed Procedure Side Surgeon p Cystoscopy/Laser/Retrograde/Ureteroscopy/ Stent Removal/ Possible Stent Replacement Left Alfonso Rudd MD Meds Allergies and Home Medications Allergies Allergy/AdvReac Type Severity Reaction Status Date / Time Penicillins AdvReac Severe GI upset Verified 12/14/23 06:13 lisinopril AdvReac Intermediate cough Verified 12/14/23 06:13 Home Medication Medication Instructions Recorded acetaminophen 500 mg tablet 1,000 mg (2 x 500 mg) PO Q8H PRN 05/22/17 #90 tab-caps aspirin 81 mg tablet,delayed 81 mg PO DAILY #240 tabs 12/21/20 release pantoprazole 40 mg tablet,delayed 40 mg PO DAILY 06/11/21 release metoprolol succinate 100 mg 100 mg PO .nightly #90 tabs 06/16/22 tablet,extended release 24 hr semaglutide 0.25 mg or 0.5 mg (2 0.75 mg subcut QWEEK 02/27/23 mg/3 mL) subcutaneous pen injector (Ozempic) atorvastatin 80 mg tablet 80 mg PO DAILY #90 tabs 04/07/23 cyclobenzaprine 10 mg tablet 10 mg PO BID #180 tabs 04/13/23 sacubitril 49 mg-valsartan 51 mg 1 tab PO BID #180 tabs 09/17/23 tablet (Entresto) oxybutynin chloride 5 mg tablet 5 mg PO TID 12/04/23 hydrocodone 5 mg-acetaminophen 325 1 - 2 tab PO Q6H PRN pain #20 tabs 12/09/23 mg tablet Current Visit Medications: Current Medications Generic Name Dose Route Start Last Admin Trade Name Freq PRN Reason Stop Dose Admin Ringer's Solution 1,000 mls @ 80 mls/hr 12/14/23 06:00 12/14/23 06:38 IV 01/10/24 23:59 80 mls/hr INFUSION LOUANN Administration IV Miscellaneous Supplies 1 each 12/14/23 06:00 Iv Access IV 01/10/24 23:59 DIRECTED LOUANN Levofloxacin 500 mg 12/14/23 06:00 12/14/23 06:42 Levofloxacin 500 Mg Tab PO 12/14/23 23:59 500 mg PREOP LOUANN Administration Sodium Chloride 0 ml 12/14/23 06:00 Normal Saline Flush 10 Ml Syr IV 01/10/24 23:59 PRN PRN Sodium Chloride 0 ml 12/14/23 06:00 Normal Saline 10 Ml Vial IJ 01/10/24 23:59 DIRECTED PRN Sterile Water 0 ml 12/14/23 06:00 Water,Injection,Sterile 10 Ml Vial IJ 01/10/24 23:59 DIRECTED PRN PFSH Active Problems Active Problems: Problem Status Onset Code Ureterolithiasis N20.1 Clot hematuria R31.0 Left renal stone N20.0 Pain in left rhomboid muscle M79.18 Colon cancer screening Z12.11 Shortness of breath on exertion R06.02 Blood in stool K92.1 Traumatic tear of left rotator cuff S46.012A Positional lightheadedness R42 Coronary artery disease I25.10 Barretts esophagus K22.70 Angina at rest I20.8 Chest pain R07.9 Hypertension I10 Alcohol abuse F10.10 Frequent PVCs I49.3 Cardiomyopathy I42.9 Kidney stones N20.0 Chronic prostatitis/chronic pelvic pain syndrome N41.1, G89.4 Medical History Medical History (Updated 12/12/23 @ 10:06 by Juan Jose Camargo MD) Claustrophobia History of herniated intervertebral disc surgery to repair 15+ years ago Prediabetes HTN (hypertension) Castellon's esophagus GERD (gastroesophageal reflux disease) HLD (hyperlipidemia) Surgical History Surgical History S/P bladder tumor excision with fulguration History of colonoscopy (~01/2023) 2014 cystourethroscopy (03/14/13) [facility] EGD - MAC (~01/2023) 2014 Cholecystectomy (~1995) Tobacco Smoking/Tobacco Use Status: Never Alcohol Alcohol Intake: current Alcohol intake frequency: a few times a week Alcohol type: wine Substance Use Substance use: Never Substance use type: does not use Vital Signs and Lab Results Vital Signs Most Recent Vital Signs in EMR: Most Recent Vital Signs Temp Pulse Resp BP Pulse Ox 36.3 C L 77 16 123/78 97 12/14/23 06:18 12/14/23 06:18 12/14/23 06:18 12/14/23 06:18 12/14/23 06:18 Lab Results Blood Type / Crossmatch: No Data to Display Complete Blood Count: White Blood Count 8.65 10^3/uL (4.4-10.8) 12/12/23 07:59 Red Blood Count 4.77 10^6/uL (4.36-5.78) 12/12/23 07:59 Hemoglobin 15.1 g/dL (13.5-17.5) 12/12/23 07:59 Hematocrit 44.6 % (40.0-50.0) 12/12/23 07:59 Platelet Count 331 10^3/uL (130-400) 12/12/23 07:59 Complete Metabolic Panel: Sodium 143 mmol/L (136-145) 12/12/23 07:59 Potassium 4.2 mmol/L (3.5-5.1) 12/12/23 07:59 Chloride 107 mmol/L (98-107) 12/12/23 07:59 Carbon Dioxide 24.0 mmol/L (21.0-32.0) 12/12/23 07:59 BUN 14 mg/dL (7-18) 12/12/23 07:59 Creatinine 0.8 mg/dL (0.70-1.30) 12/12/23 07:59 Est GFR (CKD-EPI 2020) 101.32 (mL/min/1.73m2) 12/12/23 07:59 Calcium 8.7 mg/dL (8.5-10.1) 12/12/23 07:59 Albumin 3.9 g/dL (3.4-5.0) 12/02/23 13:12 Glucose 109 mg/dL (74-106) H 12/12/23 07:59 Liver Function Panel: Alanine Aminotransferase (ALT/SGPT) 43 U/L (16-63) 12/02/23 13:12 Aspartate Amino Transf (AST/SGOT) 24 U/L (15-37) 12/02/23 13:12 Coagulation Panel: No Data to Display Cardiac Panel: No Data to Display Arterial Blood Gas: No Data to Display Venous Blood Gas: No Data to Display Pancreas Panel: No Data to Display Thyroid Panel: No Data to Display Infectious Disease: No Data to Display Blood Cultures: No Data to Display Toxicology Panel: No Data to Display Anesthesia Assessment and Plan Anesthesia History Personal History: No History of Anesthesia Complications Family History: No Family History of Anesthesia Complications Exercise Tolerance Exercise Tolerance: Metabolic Equivalents>4 Cardiac & Pulmonary Exam Cardiac Exam: Normal S1/S2 Heart Sounds Pulmonary Exam: Clear Bilateral Breath Sounds Implantable Cardiac Device Does patient have a Pacemaker or an ICD?: No Airway Exam Known Difficult Airway: No Mallampati Class: 2 Mouth Opening: Normal (> 3cm) Thyromental Distance: Greater than 3 cm Neck Range of Motion: Full ROM Neck Circumference: Normal Teeth Condition: Normal Dentition ASA Classification ASA Score: ASA 2 Emergency Case?: No NPO Status NPO Status: NPO Clears >2 hours, Solids >8 hours Anesthesia Plan Resuscitation Status: Full Code Anesthesia Technique: General Anesthesia Airway Planned: Endotracheal Tube Monitors Used: Standard Monitors
[2023-12-14] MEDS: Lidocaine 2% Jelly 11 ML SYR ×2 (07:46→12:52)
[2023-12-14] MEDS: Omnipaque 300 MG/ML 50 ML BTL ×2 (07:46→13:00)
--- NOTE | 2023-12-14 08:26 | W.PM.DSUDISC ---
Date of service: 12/14/23 Time of Service: 08:26 Discharge Plan Disposition Patient Disposition: Home Condition: Stable Discharge Details Reason For Visit: uretreroscopy Attending Provider: Alfonso Rudd Primary Care Provider: Edu Winters Home Meds and New Rx's Prescriptions: New oxycodone 5 mg tablet 5 - 10 mg PO Q6H PRN (Reason: pain) Qty: 30 0RF Rx Instructions: may use with tylenol and NSAIDs Discontinued hydrocodone-acetaminophen 5-325 mg tablet 1 - 2 tab PO Q6H MDD 8 PRN (Reason: pain) Qty: 20 0RF No Action pantoprazole 40 mg tablet,delayed release (DR/EC) 40 mg PO DAILY cyclobenzaprine 10 mg tablet 10 mg PO BID MDD 2 Qty: 180 3RF Ozempic 0.25 mg or 0.5 mg (2 mg/3 mL) pen injector 0.75 mg subcut QWEEK acetaminophen 500 MG tablet 1,000 mg PO Q8H PRN Qty: 90 0RF Hold Instructions: Resume on 02/13/23. Do not take acetaminophen with hydrocodone/acetaminophen aspirin 81 mg tablet,delayed release (DR/EC) 81 mg PO DAILY Qty: 240 8RF metoprolol succinate 100 mg tablet extended release 24 hr 100 mg PO .nightly Qty: 90 3RF atorvastatin 80 mg tablet 80 mg PO DAILY Qty: 90 6RF Entresto 49-51 mg tablet 1 tab PO BID Qty: 180 3RF oxybutynin chloride 5 mg tablet 5 mg PO TID Rx Instructions: One tab po TID PRN for bladder spasms #30 w/ no refills. 12/04/2023 Discharge Instructions Additional Instructions: no need to strain urine there is no stent in the ureter, but it is not unusual to have ureteral spasms/pain/bleeding for 3 to 5 days after this procedure followup 6 to 8 weeks with renal ultrasound - we will also review the stone's chemical analysis at that time Activity:: Activity as Tolerated Shower/Bathe:: 24 hours Diet:: As Tolerated Discharge Orders Discharge Orders: Discharge Order (Routine); Ordered 12/14/23 Ordered By: Alfonso Rudd DS: Diagnosis Discharge Diagnosis (1) Left renal stone: Status: Acute
--- NOTE | 2023-12-14 08:55 | ROE_ITS ---
Date of service: 12/14/23 Time of Service: 08:55 Operative Note Operative Note DATE OF PROCEDURE: 12/14/23 PRE-OP DIAGNOSIS: Left kidney stone POST-OP DIAGNOSIS: same PROCEDURE: cystoscopy, left retrograde pyelogram, left flexible ureteroscopy, holmium laser lithotripsy of renal stone, extraction of stone fragment SURGEON: Alfonso Rudd ANESTHESIA TYPE: Local By Surgeon and General LMA/ETT Refer to Anesthesia Record ESTIMATED BLOOD LOSS: 5 PATHOLOGY: other (stone fragment for chemical analysis) COMPLICATIONS: None Patient was transported to: PACU Patient's condition: stable Implants: none Indications: This is a 58-year-old gentleman who has a history of kidney stones. While he was in [place], he had left abdominal pain. The CT scan was done and demonstrated left hydronephrosis and a left renal/ureteral stone. He saw urologist in [place] and he underwent ureteroscopy, but the scope was only passed up to the level of the pelvic brim. The ureter was described as being dilated throughout. The scope was not advanced up to the kidney. Since coming back to our area, we have identified that his left kidney stone is still present. He was treated with a stent placement and he presents now for ureteroscopy and holmium laser lithotripsy of his stone. Findings: stone in left renal pelvis Procedure Description: The patient was brought to the operating room on 12/14/2023. He was given preoperative antibiotics. After successful induction of general anesthesia, he was placed in the dorsal lithotomy position. His genitalia was prepped and draped. 2% Xylocaine jelly was instilled into the urethra to act as a local anesthetic. A 22 Lithuanian rigid cystoscope was passed through the urethra into the bladder. The urethra and bladder were inspected with the 30 degree lens. The pendulous, bulbar and membranous urethra all appeared normal with no strictures. The prostatic urethra showed lateral lobe enlargement but no significant median lobe. The bladder neck was entered and the bladder mucosa was inspected. The left ureteral orifice was visualized and a stent could be seen protruding from the orifice. The stent was grasped with alligator forceps and brought to the level of the urethral meatus. A guidewire was passed through the lumen of the stent and the stent was removed leaving the wire in place. A dual-lumen catheter was passed over the wire and a retrograde pyelogram was obtained by injecting Omnipaque through the second lumen of the catheter. We are able to outline the stone in the renal pelvis. The dual-lumen catheter was removed and a ureteral access sheath was advanced over one of the wires the other wire was chosen as a safety wire. The flexible ureteroscope was advanced through the lumen of the access sheath. The stone was visualized in the renal pelvis. The stone was treated with a 272 ?m holmium laser fiber. We utilized dusting settings with a power of 5 and a rate of 20. Once the stone was broken down to a more manageable size, the core of the stone was grasped and a 0 tip stone basket and removed in its entirety. The stone was sent to pathology for permanent section. The ureteroscope was reintroduced and all remaining stone fragments appeared small enough to pass on their own. A repeat retrograde pyelogram revealed no ureteral injury. We elected not to place a ureteral stent as the patient had quite a bit of stent discomfort preoperatively. The patient tolerated this procedure well with no complications. He was taken to the recovery room in stable condition.
[2023-12-14] MEDS: fentaNYL 100 MCG/2 ML VIAL IVP ×4 (09:00→09:56)
[2023-12-14] MEDS: Phenazopyridine 200 MG TAB PO (09:05)
[2023-12-14] MEDS: Ketorolac 30 MG/ML VIAL IVP (09:10)
[2023-12-14] MEDS: HYDROmorphone 2 MG/ML SYR IVP ×8 (09:30→23:22)
[2023-12-14] MEDS: Normal Saline 10 ML VIAL IJ (09:30)
[2023-12-14] MEDS: oxyCODONE 5 MG TAB PO (10:20)
[2023-12-14] MEDS: diazePAM 10 MG/2 ML SYR 5 MG IVP ×2 (10:35→11:05)
--- NOTE | 2023-12-14 12:12 | W.PM.PROGNOT ---
Date of Service Date of service: 12/14/23 Time of Service: 12:12 Assessment and Plan Assessment and plan (1) Left renal stone: Status: Acute Assessment and plan: We will return to the OR urgently to place a left ureteral stent Subjective Subjective Interval history since last seen: Following his ureteroscopy and holmium laser lithotripsy of his stone, we have been unable to successfully control his pain with IV and oral analgesics. I had chosen not to place a ureteral stent after the initial procedure given his stent discomfort after the initial stent placement. Exam Narrative Exam Narrative: The patient is seen in the PACU writhing in pain His vital signs are documented elsewhere He is awake and alert Objective Last Vital Signs Temp 36.8 C 12/14/23 12:00 Pulse 84 12/14/23 12:00 Resp 17 12/14/23 12:00 BP 156/101 H 12/14/23 12:00 Pulse Ox 99 12/14/23 12:00 Time Spent with Patient Time Spent with Patient: <25 minutes Time was spent: other
--- NOTE | 2023-12-14 12:15 | DI.RAD_ITS ---
Exam(s) XR RETROGRADE IN OR EXAM: XR RETROGRADE IN OR CLINICAL HISTORY: stent placement TECHNIQUE: 2D and realtime digital imaging was performed. CONTRAST MATERIAL: Refer to procedure report. COMPARISON: CT CT RENAL COLIC WO from 12/02/2023 CR,XR XR ABDOMEN FLAT PLATE from 12/12/2023 XA XR RETROGRADE IN OR from 12/14/2023 FINDINGS: Fluoroscopy was provided for Dr. Rudd during the performance of a retrograde evaluation of the raimundo l collecting system. Please refer to the procedure report for complete details. Kar=11.7 mGy IMPRESSION: RADIATION DOSE DELIVERED: 0.0 0.0 0
[2023-12-14] MEDS: GENTAMICIN 160 MG in Normal Saline 100 ML 208 MG IVPB (13:00)
--- NOTE | 2023-12-14 13:02 | ROE_ITS ---
Date of service: 01/06/24 Time of Service: 13:10 Operative Note Operative Note DATE OF PROCEDURE: 12/14/23 PRE-OP DIAGNOSIS: left kidney stone POST-OP DIAGNOSIS: same PROCEDURE: cystoscopy, left retrograde pyelogram, insert left ureteral stent SURGEON: Alfonso Rudd ANESTHESIA TYPE: Local By Surgeon and General LMA/ETT Refer to Anesthesia Record ESTIMATED BLOOD LOSS: 5 PATHOLOGY: none sent COMPLICATIONS: None Patient was transported to: PACU Patient's condition: stable Implants: 4.8 Maldivian by 22 to 30 cm left ureteral stent 16 Maldivian sheikh catheter with 10 cc sterile water in balloon Indications: This is a 58-year-old gentleman who has a history of a left kidney stone. He had a left ureteral stent placed but the stent cause quite a bit of discomfort. He required at least 1 emergency room visit for pain control while the stent was in place. He underwent left ureteroscopy and holmium laser lithotripsy of his stone today. Because of his previous stent discomfort, I elected not to place a ureteral stent following the surgery. While in the recovery room, we have been unable to control his pain adequately, so I am bringing him back urgently for placement of a ureteral stent. Findings: dilated left renal pelvis Procedure Description: The patient was brought from the PACU back into the main operating room. After successful induction of general anesthesia, he was given an additional dose of IV antibiotics. He was placed in the dorsal lithotomy position. His genitalia was prepped with Betadine. 2% Xylocaine jelly was instilled into the urethra to act as a local anesthetic. A 22 Maldivian rigid cystoscope was passed through the urethra into the bladder. The urethra and bladder were inspected with the 30 degree lens. The pendulous, bulbar and membranous urethra appeared normal with no strictures. The prostatic urethra showed lateral lobe enlargement but no significant median lobe. The left ureteral orifice was widely patent and I passed a 5 Maldivian access catheter through the scope into the left ureteral orifice. A left retrograde pyelogram was obtained by injecting Omnipaque through the access catheter under fluoroscopic guidance. The ureter appeared normal but the renal pelvis and collecting system were dilated. I then passed a guidewire up through the lumen of the access catheter and removed the access catheter. I passed a 4.8 Maldivian variable length stent over the wire. We position the stent with the proximal end curled in the renal pelvis and the distal end curled in the bladder. I then removed the cystoscope and passed a 16 Maldivian Sheikh catheter through the urethra into the bladder. The catheter balloon was inflated with 10 cc of sterile water and the catheter was hooked to gravity drainage. The patient tolerated this procedure well and was taken back to the recovery room in stable condition.
--- NOTE | 2023-12-14 14:44 | W.ANESPOSTOP ---
Postoperative Evaluation Date, Time and Location Date Performed: 12/14/23 Time Performed: 14:45 Patient Location: PACU Vital Signs Most Recent Imported Vital Signs: Most Recent Vital Signs Temp Pulse Resp BP Pulse Ox 36.6 C 88 16 140/88 93 12/14/23 14:40 12/14/23 14:40 12/14/23 14:40 12/14/23 14:40 12/14/23 14:40 Pain Score Most Recent Pain Score: Most Recent Pain Score Pain Level 4 12/14/23 14:40 Assessment Mental Status: Awake (Alert & Oriented to Patient Baseline) Airway and Respiratory Function: Patent airway with normal (patient baseline) respiratory exam Cardiovascular Function: Hemodynamically Stable Hydration Status: Adequately Hydrated Nausea & Vomiting: No Nausea or Vomiting Pain: Pain is tolerable per patient Peripheral Nerve Block: Patient did not receive a nerve block
[2023-12-14] MEDS: diazePAM 5 MG TAB PO ×2 (15:11→19:59)
[2023-12-14] MEDS: Ketorolac 15 MG/ML VIAL IVP ×2 (15:11→21:07)
[2023-12-14] MEDS: Oxybutynin 5 MG TAB PO (15:11)
[2023-12-14] MEDS: Acetaminophen 500 MG TAB 1000 MG PO ×2 (18:00→23:43)
[2023-12-14] MEDS: Sacubitril/Valsartan 49 mg/51 mg TAB 1 EACH PO (19:59)
[2023-12-14] MEDS: Metoprolol CR 100 MG TABCR PO (19:59)
[2023-12-14] MEDS: Normal Saline Flush 10 ML SYR IVP (23:28)
[2023-12-15] MEDS: Ketorolac 15 MG/ML VIAL IVP ×2 (02:47→08:05)
[2023-12-15] MEDS: Normal Saline Flush 10 ML SYR IVP ×3 (02:48→08:06)
[2023-12-15] MEDS: Lactated Ringers 1,000 ML 80 ML IV (02:54)
[2023-12-15] MEDS: HYDROmorphone 2 MG/ML SYR IVP (05:13)
[2023-12-15] MEDS: Oxybutynin 5 MG TAB PO (05:13)
[2023-12-15 07:22] VITALS: BP 121/107; PULSE 50; RESP 18; TEMP 37.4; O2SAT 95
--- NOTE | 2023-12-15 07:33 | DSE_ITS ---
Date of service: 12/15/23 Time of Service: 07:33 DS: Diagnosis Discharge Diagnosis (1) Left renal stone: Status: Acute Discharge Plan Disposition Patient Disposition: Home Condition: Stable Discharge Details Reason For Visit: Left Kidney Stone Admit Date/Time: 12/14/23 13:42 Admit Provider: Alfonso Rudd Attending Provider: Alfonso Rudd Primary Care Provider: Edu Winters Hospital Course Hospital Course: The patient was admitted and taken to the operating room on 12/15/2023. He underwent cystoscopy, removal of left ureteral stent, left flexible ureteroscopy and holmium laser lithotripsy of his known left kidney stone. Prior to this procedure, he had quite a bit of stent discomfort, so we elected t o manage him without a ureteral stent postoperatively. We had planned on this being an outpatient procedure. In the recovery room, we were unable to control his pain adequately. We brought him back to the operating room where we placed a ureteral stent and a Sheikh catheter. He was then admitted to the hospital overnight for pain control. With the catheter and stent drainage, his pain improved and by the following morning he was able to tolerate his discomfort with oral medications. He no longer required IV analgesics. He is being discharged to home on postoperative day #1. He has a Sheikh catheter and a ureteral stent in place. Home Meds and New Rx's Prescriptions: New diazepam 5 mg Tablet 5 mg PO TID PRN (Reason: spasms) Qty: 10 0RF Continued pantoprazole 40 mg tablet,delayed release (DR/EC) 40 mg PO DAILY cyclobenzaprine 10 mg tablet 10 mg PO BID MDD 2 Qty: 180 3RF Ozempic 0.25 mg or 0.5 mg (2 mg/3 mL) pen injector 0.75 mg subcut QWEEK acetaminophen 500 MG tablet 1,000 mg PO Q8H PRN Qty: 90 0RF Hold Instructions: Resume on 02/13/23. Do not take acetaminophen with hydrocodone/acetaminophen aspirin 81 mg tablet,delayed release (DR/EC) 81 mg PO DAILY Qty: 240 8RF metoprolol succinate 100 mg tablet extended release 24 hr 100 mg PO .nightly Qty: 90 3RF atorvastatin 80 mg tablet 80 mg PO DAILY Qty: 90 6RF Entresto 49-51 mg tablet 1 tab PO BID Qty: 180 3RF Changed oxybutynin chloride 5 mg tablet 5 mg PO TID PRN (Reason: spasm) Qty: 20 0RF Rx Instructions: One tab po TID PRN for bladder spasms #30 w/ no refills. 12/04/2023 Discontinued hydrocodone-acetaminophen 5-325 mg tablet 1 - 2 tab PO Q6H MDD 8 PRN (Reason: pain) Qty: 20 0RF No Action hydromorphone [Dilaudid] 2 mg tablet 2 - 4 mg PO Q4H MDD 10 PRN (Reason: pain) Qty: 20 0RF Rx Instructions: this prescription should be used instead of the oxycodone prescription sent yesterday Discharge Instructions Additional Instructions: no need to strain urine sheikh catheter to legbag during day - may use large drainage bag at night there is a ureteral stent in place - it is not unusual to have blood in the urine as long as the stent is in place followup Thursday to have catheter removed Activity:: Activity as Tolerated Equipment/Supplies:: sheikh catheter to drainag Diet:: As Tolerated Discharge Orders Discharge Orders: Discharge Order (Routine); Ordered 12/15/23 Ordered By: Alfonso Rudd DS: Summary Time Spent with Patient providing and/or coordinating discharge services: Less than 30 minutes Status at Discharge Functional status at discharge: independent ambulation Overall status at discharge: patient is back to baseline Mental Status: mental status grossly normal Speech and Movement: speech and movement normal Mood: congruent mood Affect: normal affect Quality:SDOH Health Related Social Needs: No Data to Display Exam Narrative Exam Narrative: On the morning of discharge, he looks comfortable. He does not appear septic or toxic His vital signs are documented elsewhere His chest wall motion is normal. He is not short of breath at rest. Cardiac exam shows a regular rate and rhythm His abdomen is soft with no guarding or rebound tenderness A Sheikh catheter is in place and is draining orange-tinged urine He is awake and alert Psych Mental Status: mental status grossly normal Speech and Movement: speech and movement normal Mood: congruent mood Affect: normal affect DS: Data Vitals/I&O Vitals and I&O: Vital Signs Temperature 37.4 C 12/15/23 07:22 Temperature Source Skin 12/15/23 07:22 Pulse 50 L 12/15/23 07:22 Pulse Rhythm Regular 12/15/23 03:00 Respiratory Rate 18 12/15/23 07:22 Respiratory Effort Normal, Non-Labored 12/15/23 03:00 Respiratory Depth Normal 12/15/23 03:00 Respiratory Pattern Normal 12/15/23 03:00 Blood Pressure 121/107 H 12/15/23 07:22 Pulse Oximetry 95 12/15/23 07:22 Respiratory End-tidal CO2 31 12/14/23 14:40 Oxygen Delivery Method Room Air 12/15/23 07:22 Oxygen Flow Rate 0 12/15/23 07:22 Pain Level 3 12/15/23 07:22 Intake & Output 12/14/23 12/14/23 12/15/23 11:59 23:59 11:59 Intake Total 400 / 8915.677 2016.334 / 1883.334 858.667 / 858.667 Output Total 5 / 1355 1350 / 1355 700 / 700 Balance 395 / 528.334 133.334 / 528.334 158.667 / 158.667 Weight 118 kg 118 kg Intake: IV 400 / 5785.215 3622.334 / 1883.334 858.667 / 858.667 Output: Urine 1350 / 1350 700 / 700 Estimated Blood Loss 5 / 5 Other: Urine Color [place] Dark [place] Urine Appearance Clots Clots Emesis Description None None Data Completed and Pending Labs on day of discharge: Labs from last 24 hours 12/14/23 07:59 Stone Source Pending Stone Comment Pending Kidney Stone Analysis Pending [facility] All Active Problems Ureterolithiasis (Acute) Clot hematuria (Acute) Left renal stone (Acute) Pain in left rhomboid muscle (Acute) Colon cancer screening (Acute) Shortness of breath on exertion (Acute) Blood in stool (Acute) Traumatic tear of left rotator cuff (Acute) Positional lightheadedness (Acute) Coronary artery disease (Chronic) Barretts esophagus (Acute) Angina at rest (Acute) Chest pain (Acute) Hypertension (Chronic) Alcohol abuse (Chronic) Frequent PVCs (Acute) Cardiomyopathy (Acute) Kidney stones (Chronic) Chronic prostatitis/chronic pelvic pain syndrome (Acute) Medical History Claustrophobia History of herniated intervertebral disc surgery to repair 15+ years ago Prediabetes HTN (hypertension) Castellon's esophagus GERD (gastroesophageal reflux disease) HLD (hyperlipidemia) Surgical History S/P bladder tumor excision with fulguration History of colonoscopy (~01/2023) 2013 cystourethroscopy (03/14/13) [facility] EGD - MAC (~01/2023) 2013 Cholecystectomy (~1995) Family History Mother No problems noted. Father No problems noted. Social History Smoking/Tobacco Use Status: Never Smoking risk assessment performed?: Yes Alcohol Intake: current Alcohol Intake frequency: a few times a week Alcohol type: wine Drug use: Never Substance use type: does not use Housing: house Current gender identity: male Do you feel safe at home: Yes Do you feel safe in your relationship?: Yes Time Spent with Patient Time Spent with Patient: <45 minutes Time was spent: other
--- NOTE | 2023-12-15 08:00 | W.PM.PROGNOT ---
Date of Service Date of service: 12/15/23 Time of Service: 08:00 Assessment and Plan Assessment and plan (1) Left renal stone: Status: Acute Assessment and plan: His pain is now controlled with oral analgesics, so we will discharge him to home. He will come back into our office on Thursday to have his catheter removed. We will still need to make plans to do a cystoscopy and stent removal either in the office or in the operating room. Those plans can be finalized when he comes into the office on Thursday. Subjective Subjective Interval history since last seen: The patient had episodes of pain overnight which were well-controlled with his IV analgesics. He did have a few clots that caused obstruction of the catheter and required irrigation. This morning, he feels well and is anxious for discharge. He would like to have his catheter remain in place for a few days to ensure his pain does not recur. Exam Narrative Exam Narrative: He looks quite comfortable His vital signs are documented elsewhere The urine in the catheter drainage bag is clear He is awake and alert Objective Last Vital Signs Temp 37.4 C 12/15/23 07:22 Pulse 50 L 12/15/23 07:22 Resp 18 12/15/23 07:22 BP 121/107 H 12/15/23 07:22 Pulse Ox 95 12/15/23 07:22 Time Spent with Patient Time Spent with Patient: <25 minutes Time was spent: other
[2023-12-15] MEDS: Pantoprazole 40 MG TABCR PO (08:05)
[2023-12-15] MEDS: Sacubitril/Valsartan 49 mg/51 mg TAB 1 EACH PO (08:05)
[2023-12-15] MEDS: Tamsulosin 0.4 MG CAPCR PO (08:06)
[2023-12-15] MEDS: Acetaminophen 500 MG TAB 1000 MG PO (08:06)
[2023-12-15] MEDS: diazePAM 5 MG TAB PO (08:06)
[2023-12-15] MEDS: Atorvastatin 40 MG TAB 80 MG PO (08:06)
[2023-12-15] MEDS: oxyCODONE 5 MG TAB PO (10:20)
== END 2023-12-15 10:34 | disposition home or self-care (01) ==
LOC: MS 14:44
PROVIDERS: Admitting Provider Urology; PCP Nurse Practitioner Family; Visit Provider Urology
PROC: (CPT 52353; principal; 2023-12-14 07:30)
DX: N13.2 Hydronephrosis with renal and ureteral calculous obstruction (principal); C67.9 Malignant neoplasm of bladder, unspecified; K22.70 Barrett's esophagus without dysplasia; I10 Essential (primary) hypertension; I49.3 Ventricular premature depolarization; F10.10 Alcohol abuse, uncomplicated; I25.118 Atherosclerotic heart disease of native coronary artery with other forms of angina pectoris; I42.9 Cardiomyopathy, unspecified; R73.03 Prediabetes; N41.1 Chronic prostatitis; Z79.899 Other long term (current) drug therapy
CPT/HCPCS: 52353; 52332; 96374; 96375; 96376; 74420; 82365; G0378; J1100; J1170; J1580; J1885; J2001; J2250; J2405; J2704; J3010; J3360; Q9967

== ENCOUNTER 2023-12-21 08:48 | Day surgery (SDC) | payer BC, SELFPAY ==
[2023-12-21 09:13] VITALS: BP 130/80; PULSE 70; RESP 14; TEMP 36.5; O2SAT 98
[2023-12-21] MEDS: Ciprofloxacin 500 MG TAB PO (09:37)
[2023-12-21] MEDS: Lactated Ringers 1,000 ML 80 ML IV (09:46)
--- NOTE | 2023-12-21 09:52 | ANES.PREOP_ITS ---
General Info Date of Service Date Performed: 12/21/23 Height: 6 ft 1 in Weight: 117.9 kg Body Mass Index (BMI): 34.2 Surgical Procedure: Operation Date: 12/21/23 10:25 Proposed Procedure Side Surgeon p Cystoscopy with Stent Removal Alfonso Rudd MD Meds Allergies and Home Medications Allergies Allergy/AdvReac Type Severity Reaction Status Date / Time Penicillins AdvReac Severe GI upset Verified 12/21/23 09:06 lisinopril AdvReac Intermediate cough Verified 12/21/23 09:06 Home Medication Medication Instructions Recorded acetaminophen 500 mg tablet 1,000 mg (2 x 500 mg) PO Q8H PRN 05/22/17 #90 tab-caps aspirin 81 mg tablet,delayed 81 mg PO DAILY #240 tabs 12/21/20 release pantoprazole 40 mg tablet,delayed 40 mg PO DAILY 06/11/21 release metoprolol succinate 100 mg 100 mg PO .nightly #90 tabs 06/16/22 tablet,extended release 24 hr semaglutide 0.25 mg or 0.5 mg (2 0.75 mg subcut QWEEK 02/27/23 mg/3 mL) subcutaneous pen injector (Ozempic) atorvastatin 80 mg tablet 80 mg PO DAILY #90 tabs 04/07/23 cyclobenzaprine 10 mg tablet 10 mg PO BID #180 tabs 04/13/23 sacubitril 49 mg-valsartan 51 mg 1 tab PO BID #180 tabs 09/17/23 tablet (Entresto) oxybutynin chloride 5 mg tablet 5 mg PO TID PRN spasm #20 tabs 12/15/23 diazepam 5 mg tablet 5 mg PO TID PRN spasms #10 tabs 12/17/23 hydromorphone 2 mg tablet 2 - 4 mg (1 - 2 x 2 mg) PO Q4H PRN 12/17/23 (Dilaudid) pain #20 tabs Current Visit Medications: Current Medications Generic Name Dose Route Start Last Admin Trade Name Freq PRN Reason Stop Dose Admin Ciprofloxacin HCl 500 mg 12/21/23 08:00 12/21/23 09:37 Ciprofloxacin 500 Mg Tab PO 12/21/23 23:59 500 mg PREOP LOUANN Administration Ringer's Solution 1,000 mls @ 80 mls/hr 12/21/23 06:00 12/21/23 09:46 IV 12/21/23 23:59 80 mls/hr INFUSION LOUANN Administration IV Miscellaneous Supplies 1 each 12/21/23 06:00 Iv Access IV 12/21/23 23:59 DIRECTED LOUANN Sodium Chloride 0 ml 12/21/23 06:00 Normal Saline Flush 10 Ml Syr IV 12/21/23 23:59 PRN PRN Sodium Chloride 0 ml 12/21/23 06:00 Normal Saline 10 Ml Vial IJ 12/21/23 23:59 DIRECTED PRN Sterile Water 0 ml 12/21/23 06:00 Water,Injection,Sterile 10 Ml Vial IJ 12/21/23 23:59 DIRECTED PRN PFSH Active Problems Active Problems: Problem Status Onset Code Ureterolithiasis N20.1 Clot hematuria R31.0 Pain in left rhomboid muscle M79.18 Colon cancer screening Z12.11 Shortness of breath on exertion R06.02 Blood in stool K92.1 Traumatic tear of left rotator cuff S46.012A Positional lightheadedness R42 Coronary artery disease I25.10 Barretts esophagus K22.70 Angina at rest I20.8 Chest pain R07.9 Hypertension I10 Alcohol abuse F10.10 Frequent PVCs I49.3 Cardiomyopathy I42.9 Kidney stones N20.0 Chronic prostatitis/chronic pelvic pain syndrome N41.1, G89.4 Medical History Medical History Claustrophobia History of herniated intervertebral disc surgery to repair 15+ years ago Prediabetes HTN (hypertension) Castellon's esophagus GERD (gastroesophageal reflux disease) HLD (hyperlipidemia) Surgical History Surgical History S/P bladder tumor excision with fulguration History of colonoscopy (~01/2023) 2014 cystourethroscopy (03/14/13) [facility] EGD - MAC (~01/2023) 2014 Cholecystectomy (~1995) Tobacco Smoking/Tobacco Use Status: Never Alcohol Alcohol Intake: current Alcohol intake frequency: a few times a week Alcohol type: wine Substance Use Substance use: Occasionally Substance use type: other Details: THC edibles prn for sleep per patient Vital Signs and Lab Results Vital Signs Most Recent Vital Signs in EMR: Most Recent Vital Signs Temp Pulse Resp BP Pulse Ox 36.5 C 70 14 130/80 98 12/21/23 09:13 12/21/23 09:13 12/21/23 09:13 12/21/23 09:13 12/21/23 09:13 Lab Results Blood Type / Crossmatch: No Data to Display Complete Blood Count: White Blood Count 8.65 10^3/uL (4.4-10.8) 12/12/23 07:59 Red Blood Count 4.77 10^6/uL (4.36-5.78) 12/12/23 07:59 Hemoglobin 15.1 g/dL (13.5-17.5) 12/12/23 07:59 Hematocrit 44.6 % (40.0-50.0) 12/12/23 07:59 Platelet Count 331 10^3/uL (130-400) 12/12/23 07:59 Complete Metabolic Panel: Sodium 143 mmol/L (136-145) 12/12/23 07:59 Potassium 4.2 mmol/L (3.5-5.1) 12/12/23 07:59 Chloride 107 mmol/L (98-107) 12/12/23 07:59 Carbon Dioxide 24.0 mmol/L (21.0-32.0) 12/12/23 07:59 BUN 14 mg/dL (7-18) 12/12/23 07:59 Creatinine 0.8 mg/dL (0.70-1.30) 12/12/23 07:59 Est GFR (CKD-EPI 2020) 101.32 (mL/min/1.73m2) 12/12/23 07:59 Calcium 8.7 mg/dL (8.5-10.1) 12/12/23 07:59 Albumin 3.9 g/dL (3.4-5.0) 12/02/23 13:12 Glucose 109 mg/dL (74-106) H 12/12/23 07:59 Liver Function Panel: Alanine Aminotransferase (ALT/SGPT) 43 U/L (16-63) 12/02/23 13: 12 Aspartate Amino Transf (AST/SGOT) 24 U/L (15-37) 12/02/23 13:12 Coagulation Panel: No Data to Display Cardiac Panel: No Data to Display Arterial Blood Gas: No Data to Display Venous Blood Gas: No Data to Display Pancreas Panel: No Data to Display Thyroid Panel: No Data to Display Infectious Disease: No Data to Display Blood Cultures: No Data to Display Toxicology Panel: No Data to Display Imaging and Studies Imaging and Studies Study information below may be from another EMR and interpreted by another provider. Please see original notes in EMR for more complete details. EKG Summary: DATE/TIME OF SERVICE: 02/27/2318 : 1965 PERFORMING LOCATION: .[facility] APPROVED REPORT Exam: Resting ECG Reason for Exam: cad Patient Location: O HR:72 bpm ECG Measurements Heart Rate 72 AXIS NJ 207 P 23 QRSd 97 QRS -11 QT 405 T40 QTc 444 Conclusion Sinus rhythm...normal P axis, V-rate 50- 99 Ventricular trigeminy...trigeminy string>6 w/ V complexes Borderline prolonged NJ interval...NJ >202, V-rate 50- 90 Probable left atrial enlargement...P >50mS, <-0.10mV V1 Stress Test Summary: 01/16/2020: Stress ECG Conclusion 1. Patient exercised for 8 minutes. 10 METS. Rate-pressure product was 25,000. 2. Patient no symptoms suggestive of ischemia. Patient had frequent PVCs at baseline which continued through exercise and recovery. 3. There were no ST changes suggestive of ischemia during the exercise portion of this exam. 4. The Campos Score (8) estimates an annual cardiovascular mortality of 0% and a five year survival of 95%. Using the Campos Score there is a low probability of any angiographic coronary disease. Echocardiogram Summary: Date of Exam: 01/20/23 Sex: M Admission Date: 01/20/23 : 1965 Age: 57 APPROVED REPORT EXAM: Comprehensive 2D, Doppler, and color-flow Echocardiogram Patient Location: Out-Patient Chief Gauger: Malena Solano RDCS (AE) Indications: Exertional shortness of breath, CAD, Cardiomyopathy Other Information Study Quality: Adequate. Technically limited study due to arrhythmia. Conclusion Normal left ventricular wall thickness and chamber size. Ejection fraction is 60%. Wall motion is normal Right ventricle appears grossly normal in size and systolic function Both atria are normal in size There is no structural or hemodynamically significant valvular disease Estimated right ventricular systolic pressure is 18 mmHg Mildly dilated ascending aorta measuring 3.53 cm Anesthesia Assessment and Plan Anesthesia History Personal History: No History of Anesthesia Complications Family History: No Family History of Anesthesia Complications Exercise Tolerance Exercise Tolerance: Metabolic Equivalents>4 Pertinent Negatives Pertinent Negatives: No Symptoms of GERD, No Major Pulmonary Symptoms or Complaints and No History of CVA/TIA Cardiac & Pulmonary Exam Cardiac Exam: Normal S1/S2 Heart Sounds Pulmonary Exam: Clear Bilateral Breath Sounds Implantable Cardiac Device Does patient have a Pacemaker or an ICD?: No Airway Exam Known Difficult Airway: No Mallampati Class: 2 Mouth Opening: Normal (> 3cm) Thyromental Distance: Greater than 3 cm Neck Range of Motion: Full ROM Neck Circumference: Normal Teeth Condition: Normal Dentition ASA Classification ASA Score: ASA 3 Emergency Case?: No NPO Status NPO Status: NPO Clears >2 hours, Solids >8 hours Anesthesia Plan Resuscitation Status: Full Code Anesthesia Technique: General Anesthesia Airway Planned: Natural Airway Monitors Used: Standard Monitors
[2023-12-21 09:55] VITALS: BMI 34.2
--- NOTE | 2023-12-21 11:08 | W.PM.HP.N ---
Date of service: 12/21/23 Time of Service: 11:08 Assessment and Plan Assessment and plan (1) Left renal stone: Assessment and plan: For cystoscopy and stent removal History of Present Illness History of Present Illness Chief Complaint: Left kidney stone Narrative: This is a 58-year-old gentleman who has a history of a left kidney stone. He was initially treated with placement of a ureteral stent. He had quite a few symptoms of stent discomfort when his initial stent was in place. We then did ureteroscopy and holmium laser lithotripsy of the stone. Because of his prior stent discomfort, I elected to leave a stent out. In the recovery room however, he had significant post procedural pain that we could not adequately control. I then urgently brought him back into the operating room to replace his stent. His pain is now under quite a bit better control. Any postprocedural edema should have resolved. He presents now for cystoscopy and stent removal. Review of Systems Narrative: No fevers or chills No vision change or dysphasia No diabetes or thyroid dysfunction No shortness of breath, cough or hemoptysis No chest pain or palpitations GERD. No hepatitis, ulcers, jaundice No seizures, strokes or peripheral neuropathy No bleeding disorders or anemia No gout PFSH All Active Problems Ureterolithiasis (Acute) Clot hematuria (Acute) Pain in left rhomboid muscle (Acute) Colon cancer screening (Acute) Shortness of breath on exertion (Acute) Blood in stool (Acute) Traumatic tear of left rotator cuff (Acute) Positional lightheadedness (Acute) Coronary artery disease (Chronic) Barretts esophagus (Acute) Angina at rest (Acute) Chest pain (Acute) Hypertension (Chronic) Alcohol abuse (Chronic) Frequent PVCs (Acute) Cardiomyopathy (Acute) Kidney stones (Chronic) Chronic prostatitis/chronic pelvic pain syndrome (Acute) Medical History Claustrophobia History of herniated intervertebral disc surgery to repair 15+ years ago Prediabetes HTN (hypertension) Castellon's esophagus GERD (gastroesophageal reflux disease) HLD (hyperlipidemia) Surgical History S/P bladder tumor excision with fulguration History of colonoscopy (~01/2023) 2014 cystourethroscopy (03/14/13) [facility] EGD - MAC (~01/2023) 2013 Cholecystectomy (~1995) Family History Mother No problems noted. Father No problems noted. Social History Smoking/Tobacco Use Status: Never Smoking risk assessment performed?: Yes Alcohol Intake: current Alcohol Intake frequency: a few times a week Alcohol type: wine Drug use: Occasionally Substance use type: other Details: THC edibles prn for sleep per patient Housing: house Current gender identity: male Do you feel safe at home: Yes Do you feel safe in your relationship?: Yes Meds Allergies and Home Medications Allergies Allergy/AdvReac Type Severity Reaction Status Date / Time Penicillins AdvReac Severe GI upset Verified 12/21/23 09:06 lisinopril AdvReac Intermediate cough Verified 12/21/23 09:06 Home Medications Medication Instructions Recorded Confirmed Type acetaminophen 500 mg tablet 1,000 mg (2 x 500 mg) PO Q8H PRN 05/22/17 12/21/23 Rx #90 tab-caps aspirin 81 mg tablet,delayed 81 mg PO DAILY #240 tabs 12/21/20 12/21/23 Rx release pantoprazole 40 mg tablet,delayed 40 mg PO DAILY 06/11/21 12/21/23 History release metoprolol succinate 100 mg 100 mg PO .nightly #90 tabs 06/16/22 12/21/23 Rx tablet,extended release 24 hr semaglutide 0.25 mg or 0.5 mg (2 0.75 mg subcut QWEEK 02/27/23 12/18/23 History mg/3 mL) subcutaneous pen injector (Ozempic) atorvastatin 80 mg tablet 80 mg PO DAILY #90 tabs 04/07/23 12/21/23 Rx cyclobenzaprine 10 mg tablet 10 mg PO BID #180 tabs 04/13/23 12/21/23 Rx sacubitril 49 mg-valsartan 51 mg 1 tab PO BID #180 tabs 09/17/23 12/21/23 Rx tablet (Entresto) oxybutynin chloride 5 mg tablet 5 mg PO TID PRN spasm #20 tabs 12/15/23 12/21/23 Rx diazepam 5 mg tablet 5 mg PO TID PRN spasms #10 tabs 12/17/23 12/21/23 Rx hydromorphone 2 mg tablet 2 - 4 mg (1 - 2 x 2 mg) PO Q4H PRN 12/17/23 12/21/23 Rx (Dilaudid) pain #20 tabs Exam Const General: cooperative Neck Neck: normal visual inspection and supple Resp Effort & Inspection: normal respiratory effort Auscultation: clear to auscultation bilaterally Cardio Rate: regular rate Rhythm: regular rhythm GI Palpation: soft and no masses Neuro General: patient alert, patient awake and patient oriented x3 Results Last Vital Signs Temp 36.5 C 12/21/23 09:13 Pulse 70 12/21/23 09:13 Resp 14 12/21/23 09:13 BP 130/80 12/21/23 09:13 Pulse Ox 98 12/21/23 09:13 Time Spent Time spent with Patient: <40 minutes Time was spent: other
[2023-12-21] MEDS: Lidocaine 2% Jelly 6 ML SYR ×2 (11:47)
--- NOTE | 2023-12-21 11:56 | W.PM.DSUDISC ---
Date of service: 12/21/23 Time of Service: 11:56 Discharge Plan Disposition Patient Disposition: Home Condition: Stable Discharge Details Reason For Visit: stent removal Attending Provider: Alfonso Rudd Primary Care Provider: Edu Winters Home Meds and New Rx's Prescriptions: No Action pantoprazole 40 mg tablet,delayed release (DR/EC) 40 mg PO DAILY cyclobenzaprine 10 mg tablet 10 mg PO BID MDD 2 Qty: 180 3RF Ozempic 0.25 mg or 0.5 mg (2 mg/3 mL) pen injector 0.75 mg subcut QWEEK acetaminophen 500 MG tablet 1,000 mg PO Q8H PRN Qty: 90 0RF Hold Instructions: Resume on 02/13/23. Do not take acetaminophen with hydrocodone/acetaminophen aspirin 81 mg tablet,delayed release (DR/EC) 81 mg PO DAILY Qty: 240 8RF metoprolol succinate 100 mg tablet extended release 24 hr 100 mg PO .nightly Qty: 90 3RF atorvastatin 80 mg tablet 80 mg PO DAILY Qty: 90 6RF Entresto 49-51 mg tablet 1 tab PO BID Qty: 180 3RF hydromorphone [Dilaudid] 2 mg tablet 2 - 4 mg PO Q4H MDD 10 PRN (Reason: pain) Qty: 20 0RF Rx Instructions: this prescription should be used instead of the oxycodone prescription sent yesterday diazepam 5 mg tablet 5 mg PO TID PRN (Reason: spasms) Qty: 10 0RF oxybutynin chloride 5 mg tablet 5 mg PO TID PRN (Reason: spasm) Qty: 20 0RF Rx Instructions: One tab po TID PRN for bladder spasms #30 w/ no refills. 12/04/2023 Discharge Instructions Additional Instructions: may resume Ozempic followup 6 weeks with renal US prior to visit Activity:: Activity as Tolerated Shower/Bathe:: 24 hours Diet:: As Tolerated Discharge Orders Discharge Orders: Discharge Order (Routine); Ordered 12/21/23 Ordered By: Alfonso Rudd DS: Diagnosis Discharge Diagnosis (1) Left renal stone:
[2023-12-21 11:59] VITALS: BP 117/79; PULSE 75; RESP 20; TEMP 36.3; O2SAT 93
--- NOTE | 2023-12-21 12:00 | ROE_ITS ---
Date of service: 12/21/23 Time of Service: 12:00 Operative Note Operative Note DATE OF PROCEDURE: 12/21/23 PRE-OP DIAGNOSIS: Left kidney stone POST-OP DIAGNOSIS: same PROCEDURE: Cystoscopy and stent removal SURGEON: Alfonso Rudd ANESTHESIA TYPE: Local By Surgeon and General:No Airway Refer to Anesthesia Record ESTIMATED BLOOD LOSS: 5 PATHOLOGY: none sent COMPLICATIONS: None Patient was transported to: same day Patient's condition: stable Implants: none Indications: This is a 58-year-old gentleman who had previously undergone ureteroscopy and holmium laser lithotripsy of a left-sided kidney stone. I elected not to place a stent initially, but when his pain could not be well-controlled in the recovery room, we brought him back to the operating room for stent placement. He presents now for stent removal. Findings: edema of bladder mucosa surrounding left ureteral orifice Procedure Description: The patient was given preoperative IV antibiotics. He was brought to the operating room on 12/21/2023. He was given general anesthesia. His genitalia was prepped with Betadine and draped. 2% Xylocaine jelly was instilled into the urethra to act as a local anesthetic. A 22 K[place] rigid cystoscope was passed through the urethra into the bladder. The urethra and bladder were inspected with the 30 degree lens. The pendulous, bulbar and membranous urethra was all appeared normal with no st rictures. The prostatic urethra showed some lateral lobe enlargement. The bladder neck was entered and there was marked amount of edema around the left ureteral orifice. The stent could be seen protruding from the orifice. The stent was grasped with alligator forceps and removed in its entirety. The patient tolerated this procedure well. He was returned to the day surgery unit in stable condition.
[2023-12-21 12:23] VITALS: BP 120/82; PULSE 66; RESP 16; TEMP 36.6; O2SAT 98
[2023-12-21] MEDS: Phenazopyridine 200 MG TAB PO (12:36)
[2023-12-21] MEDS: Oxybutynin 5 MG TAB PO (12:36)
--- NOTE | 2023-12-21 12:37 | W.ANESPOSTOP ---
Postoperative Evaluation Date, Time and Location Date Performed: 12/21/23 Time Performed: 12:32 Patient Location: Day Surgery Unit Vital Signs Most Recent Imported Vital Signs: Most Recent Vital Signs Temp Pulse Resp BP Pulse Ox 36.6 C 66 16 120/82 98 12/21/23 12:23 12/21/23 12:23 12/21/23 12:23 12/21/23 12:23 12/21/23 12:23 Pain Score Most Recent Pain Score: Most Recent Pain Score Pain Level 0 12/21/23 12:23 Assessment Mental Status: Awake (Alert & Oriented to Patient Baseline) Airway and Respiratory Function: Patent airway with normal (patient baseline) respiratory exam Cardiovascular Function: Hemodynamically Stable Hydration Status: Adequately Hydrated Nausea & Vomiting: No Nausea or Vomiting Pain: Pt. Denies Any Pain Peripheral Nerve Block: Patient did not receive a nerve block
== END 2023-12-21 13:07 | disposition home or self-care (01) ==
PROVIDERS: PCP Nurse Practitioner Family; Visit Provider Urology
PROC: (CPT 52332; principal; 2023-12-21 10:15)
DX: Z46.6 Encounter for fitting and adjustment of urinary device (principal); N20.0 Calculus of kidney; I10 Essential (primary) hypertension; I42.9 Cardiomyopathy, unspecified; Z79.899 Other long term (current) drug therapy
CPT/HCPCS: 52310; J1100; J1885; J2250; J2405; J2704

== ENCOUNTER 2024-06-07 13:59 | Outpatient (CLI) | payer BC, SELFPAY ==
[2024-06-07 08:13] LABS: ALT 29 U/L (16-63); AST 18 U/L (15-37); Albumin 3.7 g/dL (3.4-5.0); Alkaline Phosphatase 77 U/L (46-116); Anion Gap 10.6 mmol/L (3-11); BUN 10 mg/dL (7-18); Bilirubin, Total 0.62 mg/dL (0.2-1.0); CO2 27.4 mmol/L (21.0-32.0); Calcium 9.6 mg/dL (8.5-10.1); Calculated LDL 107 mg/dL (<100); Chloride 105 mmol/L (98-107); Cholesterol 169 mg/dL (<200); Estimated GFR 86.16 (mL/min/1.73m2); Glucose 88 mg/dL (74-106); HDL Cholesterol 43 mg/dL (40-60); Potassium 4.3 mmol/L (3.5-5.1); Sodium 143 mmol/L (136-145); Total Protein 8.2 g/dL (6.4-8.2); Triglyceride 99 mg/dL (<150)
[2024-06-07 19:47] LABS: Hepatitis C Ab w Rflx HCV PCR Negative (Negative)
[2024-06-07 19:51] LABS: HIV-1/2 Ag & Ab Screen Negative (Negative)
== END 2024-06-07 14:00 | disposition home or self-care (01) ==
LOC: LBO 14:01
PROVIDERS: PCP Nurse Practitioner Family; Visit Provider Nurse Practitioner Family
DX: E78.5 Hyperlipidemia, unspecified (principal); Z11.59 Encounter for screening for other viral diseases; Z11.4 Encounter for screening for human immunodeficiency virus [HIV]
CPT/HCPCS: 36415; 80053; 80061; 86803; 87389

== ENCOUNTER 2024-06-13 06:18 | Day surgery (SDC) | payer BC, SELFPAY ==
[2024-06-13 06:15] VITALS: BP 141/89; PULSE 66; RESP 20; TEMP 36.3; O2SAT 99
[2024-06-13] MEDS: Lactated Ringers 500 ML 30 ML IV (06:49)
[2024-06-13] MEDS: Sulfameth/Trimeth DS TAB 1 TAB PO (06:50)
--- NOTE | 2024-06-13 06:51 | ANES.PREOP_ITS ---
General Info Date of Service Date Performed: 06/13/24 Height: 6 ft 1 in Weight: 107.5 kg Body Mass Index (BMI): 31.2 Surgical Procedure: Operation Date: 06/13/24 07:40 Proposed Procedure Side Surgeon p Cysto, Possible Transurethral Resection Bladder Tumor Alfonso Rudd MD Meds Allergies and Home Medications Allergies Allergy/AdvReac Type Severity Reaction Status Date / Time Penicillins AdvReac Severe GI upset Verified 06/13/24 06:32 lisinopril AdvReac Intermediate cough Verified 06/13/24 06:32 Home Medication ?Medication ?Instructions ?Recorded acetaminophen 500 mg tablet 1,000 mg (2 x 500 mg) PO Q8H PRN 05/22/17 #90 tab-caps aspirin 81 mg tablet,delayed 81 mg PO DAILY #240 tabs 12/21/20 release pantoprazole 40 mg tablet,delayed 40 mg PO DAILY 06/11/21 release sacubitril 49 mg-valsartan 51 mg 1 tab PO BID #180 tabs 09/17/23 tablet (Entresto) potassium citrate 10 mEq (1,080 10 meq PO BID stone prevention 02/01/24 mg) tablet,extended release #120 tabs (Urocit-K 10) semaglutide 2 mg/dose (8 mg/3 mL) 2 mg (0.75 mL) subcut ONCE #10 mL 02/19/24 subcutaneous pen injector cyclobenzaprine 10 mg tablet 10 mg PO BID #180 tabs 04/18/24 atorvastatin 80 mg tablet 80 mg PO DAILY #90 tabs 04/19/24 metoprolol succinate 25 mg 25 mg PO DAILY #90 tabs 05/28/24 tablet,extended release 24 hr Current Visit Medications: Current Medications Generic Name Dose Route Start Last Admin Trade Name Freq PRN Reason Stop Dose Admin Ringer's Solution 500 mls @ 30 mls/hr 06/13/24 06:20 06/13/24 06:49 IV 07/13/24 06:19 30 mls/hr INFUSION LOUANN Administration IV Miscellaneous Supplies 1 each 06/13/24 06:00 Iv Access IV 07/10/24 23:59 DIRECTED LOUANN Sodium Chloride 0 ml 06/13/24 06:00 Normal Saline Flush 10 Ml Syr IV 07/10/24 23:59 PRN PRN Sodium Chloride 0 ml 06/13/24 06:00 Normal Saline 10 Ml Vial IJ 07/10/24 23:59 DIRECTED PRN Sterile Water 0 ml 06/13/24 06:00 Water,Injection,Sterile 10 Ml Vial IJ 07/10/24 23:59 DIRECTED PRN Trimethoprim/Sulfamethoxazole 1 tab 06/13/24 06:00 06/13/24 06:50 Sulfameth/Trimeth Ds Tab PO 06/13/24 16:00 1 tab PREOP LOUANN Administration PFSH Active Problems Active Problems: Problem Status Onset Code Hyperlipidemia Acute E78.5 Anxiety Chronic F41.9 Clot hematuria Acute R31.0 Pain in left rhomboid muscle Acute M79.18 Colon cancer screening Acute Z12.11 Shortness of breath on exertion Acute R06.02 Blood in stool Acute K92.1 Traumatic tear of left rotator cuff Acute S46.012A Positional lightheadedness Acute R42 Coronary artery disease Chronic I25.10 Barretts esophagus Acute K22.70 Angina at rest Acute I20.8 Chest pain Acute R07.9 Hypertension Chronic I10 Alcohol abuse Chronic F10.10 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 Cardiomyopathy Acute I42.9 Chronic prostatitis/chronic pelvic pain syndrome Acute N41.1, G89.4 Medical History Medical History Bladder cancer Kidney stones Ureterolithiasis Left renal stone Claustrophobia History of herniated intervertebral disc surgery to repair 15+ years ago Prediabetes GERD (gastroesophageal reflux disease) Surgical History Surgical History S/P bladder tumor excision with fulguration History of colonoscopy (~01/2023) 2014 cystourethroscopy (03/14/13) [facility] EGD - MAC (~01/2023) 2014 Cholecystectomy (~1995) Tobacco Smoking/Tobacco Use Status: Never Passive smoking exposure: Yes Second hand exposure: Yes Alcohol Alcohol Intake: current Alcohol intake frequency: a few times a week Alcohol type: beer and wine Details: 3-4 drinks on typical day, 6 or more drinks monthly Substance Use Substance use: Daily Substance use type: marijuana and other Details: methocarbamol monthly or less Details: THC edibles prn for sleep per patient Vital Signs and Lab Results Vital Signs Most Recent Vital Signs in EMR: Most Recent Vital Signs Temp Pulse Resp BP Pulse Ox 36.3 C L 66 20 141/89 H 99 06/13/24 06:15 06/13/24 06:15 06/13/24 06:15 06/13/24 06:15 06/13/24 06:15 Lab Results Blood Type / Crossmatch: No Data to Display Complete Blood Count: No Data to Display Complete Metabolic Panel: Sodium 143 mmol/L (136-145) 06/07/24 07:19 Potassium 4.3 mmol/L (3.5-5.1) 06/07/24 07:19 Chloride 105 mmol/L (98-107) 06/07/24 07:19 Carbon Dioxide 27.4 mmol/L (21.0-32.0) 06/07/24 07:19 BUN 10 mg/dL (7-18) 06/07/24 07:19 Creatinine 1.0 mg/dL (0.70-1.30) 06/07/24 07:19 Est GFR (CKD-EPI 2020) 86.16 (mL/min/1.73m2) 06/07/24 07:19 Calcium 9.6 mg/dL (8.5-10.1) 06/07/24 07:19 Albumin 3.7 g/dL (3.4-5.0) 06/07/24 07:19 Glucose 88 mg/dL (74-106) 06/07/24 07:19 Liver Function Panel: Alanine Aminotransferase (ALT/SGPT) 29 U/L (16-63) 06/07/24 07: 19 Aspartate Amino Transf (AST/SGOT) 18 U/L (15-37) 06/07/24 07:19 Coagulation Panel: No Data to Display Cardiac Panel: No Data to Display Arterial Blood Gas: No Data to Display Venous Blood Gas: No Data to Display Pancreas Panel: No Data to Display Thyroid Panel: No Data to Display Infectious Disease: HIV (1&2) Ag and Ab, 4th Generation Negative (Negative) 07:19 Hepatitis C Antibody Negative (Negative) 06/07/24 07:19 Blood Cultures: No Data to Display Toxicology Panel: No Data to Display Imaging and Studies Imaging and Studies Study information below may be from another EMR and interpreted by another provider. Please see original notes in EMR for more complete details. EKG Summary: DATE/TIME OF SERVICE: 02/27/2318 : 1965 PERFORMING LOCATION: [facility] APPROVED REPORT Exam: Resting ECG Reason for Exam: cad Patient Location: O HR:72 bpm ECG Measurements Heart Rate 72 AXIS ME 207 P 23 QRSd 97 QRS -11 QT 405 T40 QTc 444 Conclusion Sinus rhythm...normal P axis, V-rate 50- 99 Ventricular trigeminy...trigeminy string>6 w/ V complexes Borderline prolonged ME interval...ME >202, V-rate 50- 90 Probable left atrial enlargement...P >50mS, <-0.10mV V1 Stress Test Summary: 01/16/2020: Stress ECG Conclusion 1. Patient exercised for 8 minutes. 10 METS. Rate-pressure product was 25,000. 2. Patient no symptoms suggestive of ischemia. Patient had frequent PVCs at baseline which continued through exercise and recovery. 3. There were no ST changes suggestive of ischemia during the exercise portion of this exam. 4. The Campos Score (8) estimates an annual cardiovascular mortality of 0% and a five year survival of 95%. Using the Campos Score there is a low probability of any angiographic coronary disease. Echocardiogram Summary: Date of Exam: 01/20/23 Sex: M Admission Date: 01/20/23 : 1965 Age: 57 APPROVED REPORT EXAM: Comprehensive 2D, Doppler, and color-flow Echocardiogram Patient Location: [facility] Employment Representative: Malena Solano RDCS (AE) Indications: Exertional shortness of breath, CAD, Cardiomyopathy Other Information Study Quality: Adequate. Technically limited study due to arrhythmia. Conclusion Normal left ventricular wall thickness and chamber size. Ejection fraction is 60%. Wall motion is normal Right ventricle appears grossly normal in size and systolic function Both atria are normal in size There is no structural or hemodynamically significant valvular disease Estimated right ventricular systolic pressure is 18 mmHg Mildly dilated ascending aorta measuring 3.53 cm Anesthesia Assessment and Plan Anesthesia History Personal History: No History of Anesthesia Complications Family History: No Family History of Anesthesia Complications Exercise Tolerance Exercise Tolerance: Metabolic Equivalents>4 Pertinent Negatives Pertinent Negatives: No Symptoms of GERD Cardiac & Pulmonary Exam Cardiac Exam: Normal S1/S2 Heart Sounds Pulmonary Exam: Clear Bilateral Breath Sounds Implantable Cardiac Device Does patient have a Pacemaker or an ICD?: No Airway Exam Known Difficult Airway: No Mallampati Class: 2 Mouth Opening: Normal (> 3cm) Thyromental Distance: Greater than 3 cm Neck Range of Motion: Full ROM Neck Circumference: Normal Teeth Condition: Normal Dentition ASA Classification ASA Score: ASA 2 Emergency Case?: No NPO Status NPO Status: NPO Clears >2 hours, Solids >8 hours Anesthesia Plan Resuscitation Status: Full Code Anesthesia Technique: General Anesthesia Airway Planned: Natural Airway Monitors Used: Standard Monitors
--- NOTE | 2024-06-13 06:54 | W.PM.HP.N ---
Date of service: 06/13/24 Time of Service: 06:54 Assessment and Plan Assessment and plan (1) Bladder cancer: Assessment and plan: We will plan for surveillance cystoscopy and we will be prepared to do transurethral resection of any visible tumor. History of Present Illness History of Present Illness Chief Complaint: Bladder cancer Narrative: This is a 58-year-old gentleman who has a history of kidney stones. He has required ureteroscopy and holmium laser lithotripsy of his stones previously. During one of his endoscopic procedures, he was identified as having a low-grade, noninvasive urothelial cell carcinoma of the bladder. He comes in for surveillance cystoscopy. His last cystoscopy from 6 months ago showed no recurrence. He is not seeing any gross hematuria. He has no flank pain reminiscent of renal colic. He has no dysuria. Review of Systems Narrative: No fevers or chills No vision change or dysphasia No diabetes or thyroid dysfunction No shortness of breath, cough or hemoptysis No chest pain or palpitations No nausea, vomiting, hepatitis, ulcers or jaundice No seizures, strokes or peripheral neuropathy No bleeding disorders or anemia No gout PFSH All Active Problems Hyperlipidemia (Acute) Anxiety (Chronic) Clot hematuria (Acute) Pain in left rhomboid muscle (Acute) Colon cancer screening (Acute) Shortness of breath on exertion (Acute) Blood in stool (Acute) Traumatic tear of left rotator cuff (Acute) Positional lightheadedness (Acute) Coronary artery disease (Chronic) Barretts esophagus (Acute) Angina at rest (Acute) Chest pain (Acute) Hypertension (Chronic) Alcohol abuse (Chronic) Frequent PVCs (Acute) Cardiomyopathy (Acute) Chronic prostatitis/chronic pelvic pain syndrome (Acute) Medical History Bladder cancer Kidney stones Ureterolithiasis Left renal stone Claustrophobia History of herniated intervertebral disc surgery to repair 15+ years ago Prediabetes GERD (gastroesophageal reflux disease) Surgical History S/P bladder tumor excision with fulguration History of colonoscopy (~01/2023) 2014 cystourethroscopy (03/14/13) [facility] EGD - MAC (~01/2023) 2013 Cholecystectomy (~1995) Family History (Updated 05/30/24 @ 11:14 by Bertha Lu) Mother Hyperlipidemia Father Cancer Brother Alcohol use disorder Depression Hyperlipidemia Hypertension Daughter Depression Son Depression Maternal Grandmother No problems noted. Maternal Grandfather No problems noted. Paternal Grandmother No problems noted. Paternal Grandfather No problems noted. Social History (Updated 05/30/24 @ 11:11 by Bertha Lu) Smoking/Tobacco Use Status: Never Second Hand Exposure: Yes Smoking risk assessment performed?: Yes Alcohol Intake: current Alcohol Intake frequency: a few times a week Alcohol type: beer and wine Details: 3-4 drinks on typical day, 6 or more drinks monthly Drug use: Daily Substance use type: marijuana and other Details: methocarbamol monthly or less Details: THC edibles prn for sleep per patient Adopted: No Caregiver/Support person: No Household members: spouse and children Housing: house Number of Children: 3 number of grandchildren: 2 Communication Needs: None Education Level: middle school Details: 8th grade Do you need help understanding health information?: Rarely current occupation: self employed Sexually active: Yes Current gender identity: male What is your relationship status?: How often do you talk on the phone with friends or family?: three or more times per week How often do you get together with friends or relatives?: twice per week How often do you attend episcopal or restorationism services?: decline to answer Do you belong to any clubs or organized social groups?: yes Panel score (0-1 are the most socially isolated patients): 3 NHANES result reviewed/action taken: Yes Duration: < 15 minutes/day Shahana/Muslim: Non anglican Special shahana needs: No Seatbelt use: never Helmet use: Yes Helmet use: sometimes Drive intox or ride w/intox residential recycle driver: Yes Drive intox or w/intox residential recycle driver: rarely Firearms in home: No Do you feel safe at home: Yes Do you feel safe in your relationship?: Yes Victim of physical abuse: No Victim of emotional abuse: No Victim of sexual abuse: No Would you like helpful sources: No Meds Allergies and Home Medications Allergies Allergy/AdvReac Type Severity Reaction Status Date / Time Penicillins AdvReac Severe GI upset Verified 06/13/24 06:32 lisinopril AdvReac Intermediate cough Verified 06/13/24 06:32 Home Medications ?Medication ?Instructions ?Recorded ?Confirmed ?Type acetaminophen 500 mg tablet 1,000 mg (2 x 500 mg) PO Q8H PRN 05/22/17 06/13/24 Rx #90 tab-caps aspirin 81 mg tablet,delayed 81 mg PO DAILY #240 tabs 12/21/20 06/10/24 Rx release pantoprazole 40 mg tablet,delayed 40 mg PO DAILY 06/11/21 06/13/24 History release sacubitril 49 mg-valsartan 51 mg 1 tab PO BID #180 tabs 09/17/23 06/13/24 Rx tablet (Entresto) potassium citrate 10 mEq (1,080 10 meq PO BID stone prevention 02/01/24 06/13/24 Rx mg) tablet,extended release #120 tabs (Urocit-K 10) semaglutide 2 mg/dose (8 mg/3 mL) 2 mg (0.75 mL) subcut ONCE #10 mL 02/19/24 06/10/24 Rx subcutaneous pen injector cyclobenzaprine 10 mg tablet 10 mg PO BID #180 tabs 04/18/24 06/13/24 Rx atorvastatin 80 mg tablet 80 mg PO DAILY #90 tabs 04/19/24 06/13/24 Rx metoprolol succinate 25 mg 25 mg PO DAILY #90 tabs 05/28/24 06/13/24 Rx tablet,extended release 24 hr Exam Const General: cooperative Neck Neck: supple Resp Effort & Inspection: normal respiratory effort Auscultation: clear to auscultation bilaterally Cardio Rate: regular rate Rhythm: regular rhythm GI Inspection: normal to inspection Palpation: soft and no masses Neuro General: patient alert, patient awake and patient oriented x3 Results Last Vital Signs Temp 36.3 C L 06/13/24 06:15 Pulse 66 06/13/24 06:15 Resp 20 06/13/24 06:15 BP 141/89 H 06/13/24 06:15 Pulse Ox 99 06/13/24 06:15 Time Spent Time spent with Patient: <40 minutes Time was spent: other
[2024-06-13 06:59] VITALS: BMI 31.2
[2024-06-13] MEDS: Lidocaine 2% Jelly 6 ML SYR (07:42)
--- NOTE | 2024-06-13 07:44 | PAPNONF_PTH ---
PATIENT: Malik Johns LOC: [facility] U#:[id number] AGE/SX: 58/M ROOM: RE06/13/[address]: Alfonso Rudd MD : 1965 BED: DIS: 06/13/2024 SPEC #: [id number] RECD: 06/13/24 13:11 STATUS: KATIE RE #: [id number] NIRALI: 06/13/24 07:[address]: Alfonso Rudd DEPT: [facility] Cytology RECD BY: Alexa Gonzalez ENTERED: 06/13/24 13:11 SP TYPE: WILFREDO MILLER DR: Edu Robertson DNP Tissues: 1 - BODY FLUID CYTO(SPUTUM/URINE)[facility] Procedures: BODY FLUID CYTO(URINE/SPUTUM) Comments: [id number] (TV = 40 ml, 30 ml CYTOLYT ADDED) (REFRIGERATED)
--- NOTE | 2024-06-13 07:51 | PDOC.DSDIS_ITS ---
Date of service: 06/13/24 Time of Service: 07:51 Discharge Plan Disposition Patient Disposition: Home Discharge Details Reason For Visit: cystoscopy Attending Provider: Alfonso Rudd Primary Care Provider: Edu Winters Home Meds and New Rx's Prescriptions: No Action pantoprazole 40 mg tablet,delayed release (DR/EC) 40 mg PO DAILY metoprolol succinate 25 mg tablet extended release 24 hr 25 mg PO DAILY Qty: 90 4RF potassium citrate [Urocit-K 10] 10 mEq (1,080 mg) tablet extended release 10 meq PO BID Qty: 120 4RF acetaminophen 500 MG tablet 1,000 mg PO Q8H PRN Qty: 90 0RF aspirin 81 mg tablet,delayed release (DR/EC) 81 mg PO DAILY Qty: 240 8RF Entresto 49-51 mg tablet 1 tab PO BID Qty: 180 3RF semaglutide 2 mg/dose (8 mg/3 mL) pen injector 2 mg subcut ONCE Qty: 10 12RF Rx Instructions: [facility] [place], [place] [phone] cyclobenzaprine 10 mg tablet 10 mg PO BID MDD 2 Qty: 180 3RF atorvastatin 80 mg tablet 80 mg PO DAILY Qty: 90 6RF Discharge Instructions Additional Instructions: I did not see any tumor on today's exam but I did collect a urine sample for cytology - please call our office in about a week to review the results You will be due for a repeat cystoscopy in 6 months - if that cystoscopy is normal, we can switch to yearly exams Discharge Orders Discharge Orders: Discharge Order (Routine); Ordered 06/13/24 Ordered By: Alfonso Rudd DS: Diagnosis Discharge Diagnosis (1) Bladder cancer:
--- NOTE | 2024-06-13 07:55 | ROE_ITS ---
Date of service: 06/13/24 Time of Service: 07:55 Operative Note Operative Note DATE OF PROCEDURE: 06/13/24 PRE-OP DIAGNOSIS: Bladder cancer POST-OP DIAGNOSIS: same PROCEDURE: Cystoscopy SURGEON: Alfonso Rudd ANESTHESIA TYPE: Local By Surgeon and General:No Airway Refer to Anesthesia Record ESTIMATED BLOOD LOSS: 5 PATHOLOGY: other (Urine for cytology) COMPLICATIONS: None Patient was transported to: same day Patient's condition: stable Implants: None Indications: This is a 58-year-old gentleman who has a history of low-grade, noninvasive urothelial cell carcinoma of the bladder. He presents for cystoscopy. Findings: No evidence of bladder tumor Procedure Description: The patient is given an oral antibiotic and brought to the operating room on 06/13/2024. After successful induction of general anesthesia, he was placed in the dorsal lithotomy position. His genitalia is prepped with Betadine. 2% Xylocaine jelly was instilled into the urethra to act as a local anesthetic. A 22 Cambodian rigid cystoscope was passed through the urethra into the bladder. Urine was collected from the bladder and sent to the lab for cytology exam. The urethra and bladder were inspected with the 30 degree lens. The pendulous, bulbar and membranous urethra appeared normal with no strictures. The prostatic urethra showed some the lateral lobe enlargement but no significant median lobe. No papillary lesions were seen on the prostatic mucosa. The bladder neck was entered and the bladder mucosa was inspected. Both ureteral orifices appeared normal with no blood coming from either side. There was a scar on the left lateral bladder wall but no papillary or nodular lesions seen throughout the bladder. These findings were confirmed on reinspection of the bladder using a 70 degree lens. Based on today's examination, there is no evidence of tumor recurrence. The scope was removed. The patient tolerated this procedure well with no complications.
[2024-06-13 07:56] VITALS: BP 128/90; PULSE 82; RESP 18; TEMP 36.6; O2SAT 94
--- NOTE | 2024-06-13 07:59 | W.ANESPOSTOP ---
Postoperative Evaluation Date, Time and Location Date Performed: 06/13/24 Time Performed: 07:59 Patient Location: Day Surgery Unit Vital Signs Most Recent Imported Vital Signs: Most Recent Vital Signs Temp Pulse Resp BP Pulse Ox 36.6 C 82 18 128/90 94 06/13/24 07:56 06/13/24 07:56 06/13/24 07:56 06/13/24 07:56 06/13/24 07:56 Assessment Mental Status: Awake (Alert & Oriented to Patient Baseline) Airway and Respiratory Function: Patent airway with normal (patient baseline) respiratory exam Cardiovascular Function: Hemodynamically Stable Hydration Status: Adequately Hydrated Nausea & Vomiting: No Nausea or Vomiting Pain: Pt. Denies Any Pain Peripheral Nerve Block: Patient did not receive a nerve block
[2024-06-13 08:10] VITALS: BP 132/86; PULSE 67; RESP 20; TEMP 36.4; O2SAT 97
== END 2024-06-13 08:25 | disposition home or self-care (01) ==
PROVIDERS: PCP Nurse Practitioner Family; Visit Provider Urology
PROC: 0TBB8ZZ Excision of Bladder, Via Natural or Artificial Opening Endoscopic (ICD-10-PCS; CPT 52000; principal; 2024-06-13 07:30)
DX: Z08 Encounter for follow-up examination after completed treatment for malignant neoplasm (principal); Z85.51 Personal history of malignant neoplasm of bladder
CPT/HCPCS: 52000; 88104; J1100; J2405; J2704

== ENCOUNTER 2024-11-29 07:58 | Outpatient (CLI) | payer BC, SELFPAY | END 2024-11-29 07:59 | disposition home or self-care (01) | LOC: DI.CARD 07:59 | PROVIDERS: PCP Nurse Practitioner Family; Visit Provider Internal Medicine Cardiovascular Disease | DX: I49.3 Ventricular premature depolarization (principal); I25.10 Atherosclerotic heart disease of native coronary artery without angina pectoris | CPT/HCPCS: 93010 ==

== ENCOUNTER 2024-12-02 10:26 | Outpatient (CLI) | payer BC, SELFPAY ==
--- NOTE | 2024-12-02 10:15 | RT.EKG_ITS ---
APPROVED REPORT Exam: Resting ECG Reason for Exam: annual eval Patient Location: O HR:105 bpm ECG Measurements Heart Rate 105 AXIS RI 175 P 44 QRSd 96 QRS -9 QT 339 T 40 QTc 449 Conclusion Sinus tachycardia...rate> 99 Ventricular trigeminy...trigeminy string>6 w/ V complexes Otherwise normal
== END 2024-12-02 10:27 | disposition home or self-care (01) ==
LOC: DI.CARD 10:26
PROVIDERS: PCP Nurse Practitioner Family; Visit Provider Internal Medicine Cardiovascular Disease
DX: E78.5 Hyperlipidemia, unspecified (principal); I25.10 Atherosclerotic heart disease of native coronary artery without angina pectoris; R07.9 Chest pain, unspecified
CPT/HCPCS: 93010

== ENCOUNTER 2024-12-29 06:15 | Day surgery (SDC) | payer BC, SELFPAY ==
[2024-12-29 06:25] VITALS: BP 123/88; PULSE 75; RESP 20; TEMP 36.7; O2SAT 98
[2024-12-29] MEDS: Sulfameth/Trimeth DS TAB 1 TAB PO (06:42)
[2024-12-29] MEDS: Lactated Ringers 1,000 ML 80 ML IV (06:48)
--- NOTE | 2024-12-29 06:51 | W.PM.HP.N ---
Date of service: 12/29/24 Time of Service: 06:52 Assessment and Plan Assessment and plan (1) Bladder cancer: Assessment and plan: For surveillance cystoscopy and possible TURBT. If no tumors found on this cystoscopy, we can move to yearly exams. History of Present Illness History of Present Illness Chief Complaint: Bladder cancer Narrative: This is a 59-year-old gentleman who has a history of low-grade, noninvasive urothelial cell carcinoma that was discovered in October 2023. He has not had any evidence of tumor recurrence on his surveillance cystoscopies or cytology results. He presents for surveillance cystoscopy. He has no gross hematuria He has a history of kidney stones and is on potassium citrate for stone prevention. He has no flank pain at this time Review of Systems Narrative: No fevers or chills No vision change or dysphasia No diabetes or thyroid dysfunction No shortness of breath, cough or hemoptysis Hx cardiomyopathy. No chest pain or palpitations GERD - on pantoprazole. No nausea, vomiting, hepatitis, ulcers, jaundice No seizures, strokes or peripheral neuropathy No bleeding disorders or anemia No gout PFSH All Active Problems Obesity (Chronic) Hyperlipidemia (Acute) Anxiety (Chronic) Clot hematuria (Acute) Pain in left rhomboid muscle (Acute) Colon cancer screening (Acute) Shortness of breath on exertion (Acute) Blood in stool (Acute) Traumatic tear of left rotator cuff (Acute) Positional lightheadedness (Acute) Coronary artery disease (Chronic) Barretts esophagus (Acute) Angina at rest (Acute) Chest pain (Acute) Hypertension (Chronic) Alcohol abuse (Chronic) Frequent PVCs (Acute) Cardiomyopathy (Acute) Chronic prostatitis/chronic pelvic pain syndrome (Acute) Medical History Bladder cancer Ureterolithiasis Kidney stones Claustrophobia Left renal stone History of herniated intervertebral disc surgery to repair 15+ years ago Prediabetes GERD (gastroesophageal reflux disease) Surgical History S/P bladder tumor excision with fulguration History of colonoscopy (~01/2023) 2014 cystourethroscopy (03/14/13) [facility] EGD - MAC (~01/2023) 2013 Cholecystectomy (~1995) Family History Mother Hyperlipidemia Father Cancer Brother Alcohol use disorder Depression Hyperlipidemia Hypertension Daughter Depression Son Depression Maternal Grandmother No problems noted. Maternal Grandfather No problems noted. Paternal Grandmother No problems noted. Paternal Grandfather No problems noted. Social History Smoking/Tobacco Use Status: Never Second Hand Exposure: Yes Smoking risk assessment performed?: Yes Alcohol Intake: current Alcohol Intake frequency: a few times a week Alcohol type: beer and wine Details: 3-4 drinks on typical day, 6 or more drinks monthly Drug use: Daily Substance use type: marijuana and other Details: methocarbamol monthly or less Adopted: No Caregiver/Support person: No Household members: spouse and children Housing: house Number of Children: 3 number of grandchildren: 2 Communication Needs: None Education Level: middle school Details: 8th grade Do you need help understanding health information?: Rarely current occupation: self employed Sexually active: Yes Current gender identity: male What is your relationship status?: How often do you talk on the phone with friends or family?: three or more times per week How often do you get together with friends or relatives?: twice per week How often do you attend orthodox or presybeterian services?: decline to answer Do you belong to any clubs or organized social groups?: yes Panel score (0-1 are the most socially isolated patients): 3 NHANES result reviewed/action taken: Yes Duration: < 15 minutes/day Shahana/Presybeterian: Non roman catholic Special shahana needs: No Seatbelt use: never Helmet use: Yes Helmet use: sometimes Drive intox or ride w/intox garbage truck driver: Yes Drive intox or w/intox garbage truck driver: rarely Firearms in home: No Do you feel safe at home: Yes Do you feel safe in your relationship?: Yes Victim of physical abuse: No Victim of emotional abuse: No Victim of sexual abuse: No Would you like helpful sources: No Meds Allergies and Home Medications Allergies Allergy/AdvReac Type Severity Reaction Status Date / Time Penicillins AdvReac Severe GI upset Verified 12/29/24 06:22 lisinopril AdvReac Intermediate cough Verified 12/29/24 06:22 Home Medications ?Medication ?Instructions ?Recorded ?Confirmed ?Type acetaminophen 500 mg tablet 1,000 mg (2 x 500 mg) PO Q8H PRN 05/22/17 12/29/24 Rx #90 tab-caps aspirin 81 mg tablet,delayed 81 mg PO DAILY #240 tabs 12/21/20 12/27/24 Rx release potassium citrate 10 mEq (1,080 10 meq PO BID stone prevention 02/01/24 12/29/24 Rx mg) tablet,extended release #120 tabs (Urocit-K 10) cyclobenzaprine 10 mg tablet 10 mg PO BID #180 tabs 04/18/24 12/29/24 Rx atorvastatin 80 mg tablet 80 mg PO DAILY #90 tabs 04/19/24 12/29/24 Rx metoprolol succinate 25 mg 25 mg PO DAILY #90 tabs 05/28/24 12/29/24 Rx tablet,extended release 24 hr sacubitril 49 mg-valsartan 51 mg See Rx Instructions .Route 10/20/24 12/29/24 Rx tablet (Entresto) .COMPLEX #180 tabs semaglutide (weight loss) 2.4 2.4 mg (0.75 mL) subcut QWEEK 10/26/24 12/27/24 Rx mg/0.75 mL subcutaneous pen obesity #3 mL injector pantoprazole 40 mg tablet,delayed 40 mg PO DAILY #90 tabs 12/21/24 12/29/24 Rx release Exam Const General: cooperative Neck Neck: supple Resp Effort & Inspection: normal respiratory effort Auscultation: clear to auscultation bilaterally Cardio Rate: regular rate Rhythm: regular rhythm GI Palpation: soft Neuro General: patient alert, patient awake and patient oriented x3 Results Last Vital Signs Temp 36.7 C 12/29/24 06:25 Pulse 75 12/29/24 06:25 Resp 20 12/29/24 06:25 BP 123/88 12/29/24 06:25 Pulse Ox 98 12/29/24 06:25 Time Spent Time spent with Patient: <40 minutes Time was spent: other
--- NOTE | 2024-12-29 06:52 | W.ANESPRE ---
General Info Date of Service Date Performed: 12/29/24 Height: 6 ft 1 in Weight: 102.7 kg Body Mass Index (BMI): 29.8 Surgical Procedure: Operation Date: 12/29/24 07:40 Proposed Procedure Side Surgeon p Cystscope w/Transurethral Resection Bladder Tumor Alfonso Rudd MD Meds Allergies and Home Medications Allergies Allergy/AdvReac Type Severity Reaction Status Date / Time Penicillins AdvReac Severe GI upset Verified 12/29/24 06:22 lisinopril AdvReac Intermediate cough Verified 12/29/24 06:22 Home Medication ?Medication ?Instructions ?Recorded acetaminophen 500 mg tablet 1,000 mg (2 x 500 mg) PO Q8H PRN 05/22/17 #90 tab-caps aspirin 81 mg tablet,delayed 81 mg PO DAILY #240 tabs 12/21/20 release potassium citrate 10 mEq (1,080 10 meq PO BID stone prevention 02/01/24 mg) tablet,extended release #120 tabs (Urocit-K 10) cyclobenzaprine 10 mg tablet 10 mg PO BID #180 tabs 04/18/24 atorvastatin 80 mg tablet 80 mg PO DAILY #90 tabs 04/19/24 metoprolol succinate 25 mg 25 mg PO DAILY #90 tabs 05/28/24 tablet,extended release 24 hr sacubitril 49 mg-valsartan 51 mg See Rx Instructions .Route 10/20/24 tablet (Entresto) .COMPLEX #180 tabs semaglutide (weight loss) 2.4 2.4 mg (0.75 mL) subcut QWEEK 10/26/24 mg/0.75 mL subcutaneous pen obesity #3 mL injector pantoprazole 40 mg tablet,delayed 40 mg PO DAILY #90 tabs 12/21/24 release Current Visit Medications: Current Medications Generic Name Dose Route Start Last Admin Trade Name Freq PRN Reason Stop Dose Admin Ringer's Solution 1,000 mls @ 80 mls/hr 12/28/24 12:30 12/29/24 06:48 IV 01/27/25 12:29 80 mls/hr INFUSION LOUANN Administration IV Miscellaneous Supplies 1 each 12/29/24 06:00 Iv Access IV 12/29/24 23:59 DIRECTED LOUANN Sodium Chloride 0 ml 12/29/24 06:00 Normal Saline Flush 10 Ml Syr IV 12/29/24 23:59 PRN PRN Sodium Chloride 0 ml 12/29/24 06:00 Normal Saline 10 Ml Vial IJ 12/29/24 23:59 DIRECTED PRN Sterile Water 0 ml 12/29/24 06:00 Water,Injection,Sterile 10 Ml Vial IJ 12/29/24 23:59 DIRECTED PRN Trimethoprim/Sulfamethoxazole 1 tab 12/29/24 06:00 12/29/24 06:42 Sulfameth/Trimeth Ds Tab PO 12/29/24 23:59 1 tab PREOP LOUANN Administration PFSH Active Problems Active Problems: Problem Status Onset Code Obesity Chronic E66.9 Hyperlipidemia Acute E78.5 Anxiety Chronic F41.9 Clot hematuria Acute R31.0 Pain in left rhomboid muscle Acute M79.18 Colon cancer screening Acute Z12.11 Shortness of breath on exertion Acute R06.02 Blood in stool Acute K92.1 Traumatic tear of left rotator cuff Acute S46.012A Positional lightheadedness Acute R42 Coronary artery disease Chronic I25.10 Barretts esophagus Acute K22.70 Angina at rest Acute I20.8 Chest pain Acute R07.9 Hypertension Chronic I10 Alcohol abuse Chronic F10.10 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 Cardiomyopathy Acute I42.9 Chronic prostatitis/chronic pelvic pain syndrome Acute N41.1, G89.4 Medical History Medical History Bladder cancer Ureterolithiasis Kidney stones Claustrophobia Left renal stone History of herniated intervertebral disc surgery to repair 15+ years ago Prediabetes GERD (gastroesophageal reflux disease) Surgical History Surgical History S/P bladder tumor excision with fulguration History of colonoscopy (~01/2023) 2014 cystourethroscopy (03/14/13) [facility] EGD - MAC (~01/2023) 2013 Cholecystectomy (~1995) Tobacco Smoking/Tobacco Use Status: Never Passive smoking exposure: Yes Second hand exposure: Yes Alcohol Alcohol Intake: current Alcohol intake frequency: a few times a week Alcohol type: beer and wine Details: 3-4 drinks on typical day, 6 or more drinks monthly Substance Use Substance use: Daily Substance use type: marijuana and other Details: methocarbamol monthly or less Vital Signs and Lab Results Vital Signs Most Recent Vital Signs in EMR: Most Recent Vital Signs Temp Pulse Resp BP Pulse Ox 36.7 C 75 20 123/88 98 12/29/24 06:25 12/29/24 06:25 12/29/24 06:25 12/29/24 06:12/29/24 06:25 Lab Results Blood Type / Crossmatch: No Data to Display Complete Blood Count: No Data to Display Complete Metabolic Panel: No Data to Display Liver Function Panel: No Data to Display Coagulation Panel: No Data to Display Cardiac Panel: No Data to Display Arterial Blood Gas: No Data to Display Venous Blood Gas: No Data to Display Pancreas Panel: No Data to Display Thyroid Panel: No Data to Display Infectious Disease: No Data to Display Blood Cultures: No Data to Display Toxicology Panel: No Data to Display Imaging and Studies Imaging and Studies Study information below may be from another EMR and interpreted by another provider. Please see original notes in EMR for more complete details. EKG Summary: DATE/TIME OF SERVICE: 02/27/23817 : 1965 PERFORMING LOCATION: .CARD APPROVED REPORT Exam: Resting ECG Reason for Exam: cad Patient Location: O HR:72 bpm ECG Measurements Heart Rate 72 AXIS OH 207 P 23 QRSd 97 QRS -11 QT 405 T40 QTc 444 Conclusion Sinus rhythm...normal P axis, V-rate 50- 99 Ventricular trigeminy...trigeminy string>6 w/ V complexes Borderline prolonged OH interval...OH >202, V-rate 50- 90 Probable left atrial enlargement...P >50mS, <-0.10mV V1 Stress Test Summary: 01/16/2020: Stress ECG Conclusion 1. Patient exercised for 8 minutes. 10 METS. Rate-pressure product was 25,000. 2. Patient no symptoms suggestive of ischemia. Patient had frequent PVCs at baseline which continued through exercise and recovery. 3. There were no ST changes suggestive of ischemia during the exercise portion of this exam. 4. The Campos Score (8) estimates an annual cardiovascular mortality of 0% and a five year survival of 95%. Using the Campos Score there is a low probability of any angiographic coronary disease. Echocardiogram Summary: Date of Exam: 01/20/23 Sex: M Admission Date: 01/20/23 : 1965 Age: 57 APPROVED REPORT EXAM: Comprehensive 2D, Doppler, and color-flow Echocardiogram Patient Location: Out-Patient [employer] Helper: Malena Solano RDCS (AE) Indications: Exertional shortness of breath, CAD, Cardiomyopathy Other Information Study Quality: Adequate. Technically limited study due to arrhythmia. Conclusion Normal left ventricular wall thickness and chamber size. Ejection fraction is 60%. Wall motion is normal Right ventricle appears grossly normal in size and systolic function Both atria are normal in size There is no structural or hemodynamically significant valvular disease Estimated right ventricular systolic pressure is 18 mmHg Mildly dilated ascending aorta measuring 3.53 cm Anesthesia Assessment and Plan Anesthesia History Personal History: No History of Anesthesia Complications Family History: No Family History of Anesthesia Complications Exercise Tolerance Exercise Tolerance: Metabolic Equivalents>4 Pertinent Negatives Pertinent Negatives: No Symptoms of GERD, No Major Pulmonary Symptoms or Complaints and No History of CVA/TIA Cardiac & Pulmonary Exam Cardiac Exam: Normal S1/S2 Heart Sounds Pulmonary Exam: Clear Bilateral Breath Sounds Implantable Cardiac Device Does patient have a Pacemaker or an ICD?: No Airway Exam Known Difficult Airway: No Mallampati Class: 2 Mouth Opening: Normal (> 3cm) Thyromental Distance: Greater than 3 cm Neck Range of Motion: Full ROM Neck Circumference: Normal Teeth Condition: Normal Dentition ASA Classification ASA Score: ASA 3 Emergency Case?: No NPO Status NPO Status: NPO Clears >2 hours, Solids >8 hours Anesthesia Plan Resuscitation Status: Full Code Anesthesia Technique: General Anesthesia Airway Planned: Natural Airway Monitors Used: Standard Monitors
[2024-12-29 07:10] VITALS: BMI 29.8
[2024-12-29] MEDS: Lidocaine 2% Jelly 11 ML SYR (08:08)
--- NOTE | 2024-12-29 08:10 | PAPNONF_PTH ---
PATIENT: Malik Johns LOC: [facility] U#:[id number] AGE/SX: 59/M ROOM: RE12/29/[address]: Alfonso Rudd MD : 1965 BED: DIS: 12/29/2024 SPEC #: [id number] RECD: 12/29/24 13:14 STATUS: DERRICKNorberto REQ #: [id number] NIRALI: 12/29/24 08:[address]: Alfonso Rudd DEPT: [facility] Cytology RECD BY: Alexa Gonzalez ENTERED: 12/29/24 13:15 SP TYPE: WILFREDO MILLER DR: Edu Robertson DNP Tissues: 1 - BODY FLUID CYTO(SPUTUM/URINE)[facility] Procedures: BODY FLUID CYTO(URINE/SPUTUM) Comments: [id number] (TV = 70 ml, 30 ml CYTOLYT ADDED) (REFRIGERATED)
--- NOTE | 2024-12-29 08:17 | W.PM.DSUDISC ---
Date of service: 12/29/24 Discharge Plan Disposition Patient Disposition: Home Condition: Stable Discharge Details Reason For Visit: cystoscopy Attending Provider: Alfonso Rudd Primary Care Provider: Edu Winters Home Meds and New Rx's Prescriptions: No Action metoprolol succinate 25 mg tablet extended release 24 hr 25 mg PO DAILY Qty: 90 4RF potassium citrate [Urocit-K 10] 10 mEq (1,080 mg) tablet extended release 10 meq PO BID Qty: 120 4RF acetaminophen 500 MG tablet 1,000 mg PO Q8H PRN Qty: 90 0RF aspirin 81 mg tablet,delayed release (DR/EC) 81 mg PO DAILY Qty: 240 8RF cyclobenzaprine 10 mg tablet 10 mg PO BID MDD 2 Qty: 180 3RF atorvastatin 80 mg tablet 80 mg PO DAILY Qty: 90 6RF Entresto 49-51 mg tablet See Rx Instructions .ROUTE .COMPLEX Qty: 180 3RF Dose Instruction: TAKE ONE TABLET BY MOUTH TWICE A DAY Rx Instructions: TAKE ONE TABLET BY MOUTH TWICE A DAY semaglutide (weight loss) 2.4 mg/0.75 mL pen injector 2.4 mg subcut QWEEK Qty: 3 11RF Rx Instructions: Approved for compounding. pantoprazole 40 mg tablet,delayed release (DR/EC) 40 mg PO DAILY Qty: 90 3RF Discharge Instructions Additional Instructions: Followup @ 2 weeks to review cystology results (by phone is OK) next cystoscopy will depend on cytology results (hopefully in 1 year!) Stand Alone Forms: Anesthesia Discharge Inst., [facility] Penny Donnelly ([facility]) Activity:: Activity as Tolerated Shower/Bathe:: 24 hours Diet:: As Tolerated Discharge Orders Discharge Orders: Discharge Order (Routine); Ordered 12/29/24 Ordered By: Alfonso Rudd DS: Diagnosis Discharge Diagnosis (1) Bladder cancer:
--- NOTE | 2024-12-29 08:20 | ROE_ITS ---
Operative Note Operative Note PRE-OP DIAGNOSIS: Bladder cancer POST-OP DIAGNOSIS: same PROCEDURE: cystoscopy SURGEON: Alfonso Rudd ANESTHESIA TYPE: Local By Surgeon and General:No Airway Refer to Anesthesia Record ESTIMATED BLOOD LOSS: 5 PATHOLOGY: other (urine for cytology) Patient was transported to: same day Patient's condition: stable Implants: none Indications: This is a 59-year-old gentleman who has a history of a low-grade noninvasive urothelial cell carcinoma of the bladder. He was initially diagnosed in October 2023. He has had no subsequent recurrences. He presents for surveillance cystoscopy Findings: No recurrent tumor Procedure Description: The patient was given oral antibiotics and brought to the operating room on 12/29/2024. After successful induction of general anesthesia without intubation, he was placed in the dorsal lithotomy position. His genitalia was prepped and d raped. 2% Xylocaine jelly was instilled into the urethra. The 22 Frisian rigid cystoscope was passed through the urethra into the bladder. The urethra and bladder were inspected with the 30 degree lens. The pendulous, bulbar and membranous urethra appeared normal with no strictures. The prostatic urethra showed minimal lateral lobe enlargement with no significant median lobe. The bladder neck was entered and the bladder mucosa was inspected. The urine in the bladder was collected and sent to pathology for cytology examination. Both ureteral orifices appeared normal. No blood was seen coming from either side. Posterior and lateral to the left ureteral orifice, there was a scar from his previous transurethral resection. No additional abnormalities were seen in the bladder. Specifically, there were no papillary or nodular lesions. These findings were confirmed on reinspection of the bladder using a 70 degree lens. The bladder was emptied and the cystoscope was withdrawn. Date of Procedure: 12/29/24
[2024-12-29 08:21] VITALS: BP 121/80; PULSE 90; RESP 18; TEMP 36.2; O2SAT 96
--- NOTE | 2024-12-29 08:36 | W.ANESPOSTOP ---
Postoperative Evaluation Date, Time and Location Date Performed: 12/29/24 Time Performed: 08:36 Patient Location: Day Surgery Unit Vital Signs Most Recent Imported Vital Signs: Most Recent Vital Signs Temp Pulse Resp BP Pulse Ox 36.2 C L 90 18 121/80 96 12/29/24 08:21 12/29/24 08:21 12/29/24 08:21 12/29/24 08:21 12/29/24 08:21 Pain Score Most Recent Pain Score: Most Recent Pain Score Pain Level 0 12/29/24 08:21 Assessment Mental Status: Awake (Alert & Oriented to Patient Baseline) Airway and Respiratory Function: Patent airway with normal (patient baseline) respiratory exam Cardiovascular Function: Hemodynamically Stable Hydration Status: Adequately Hydrated Nausea & Vomiting: No Nausea or Vomiting Pain: Pt. Denies Any Pain Peripheral Nerve Block: Patient did not receive a nerve block
[2024-12-29] MEDS: Phenazopyridine 200 MG TAB PO (08:39)
[2024-12-29 08:50] VITALS: BP 123/80; PULSE 79; RESP 20; TEMP 36.4; O2SAT 99
== END 2024-12-29 09:05 | disposition home or self-care (01) ==
PROVIDERS: PCP Nurse Practitioner Family; Visit Provider Urology
PROC: 0TBB8ZZ Excision of Bladder, Via Natural or Artificial Opening Endoscopic (ICD-10-PCS; CPT 52000; principal; 2024-12-29 07:30)
DX: C67.9 Malignant neoplasm of bladder, unspecified (principal)
CPT/HCPCS: 52000; 88104; J2704

== ENCOUNTER 2025-06-10 11:36 | Outpatient (REF) | payer BC, SELFPAY ==
[2025-06-10 17:10] LABS: ALT 40 U/L (16-63); AST 18 U/L (15-37); Albumin 3.9 g/dL (3.4-5.0); Alkaline Phosphatase 70 U/L (46-116); Anion Gap 9.0 mmol/L (3-11); BUN 13 mg/dL (7-18); Bilirubin, Total 0.4 mg/dL (0.2-1.0); CO2 27.0 mmol/L (21.0-32.0); Calcium 8.5 mg/dL (8.5-10.1); Chloride 105 mmol/L (98-107); Cholesterol 183 mg/dL (<200); Glucose 90 mg/dL (74-106); HDL Cholesterol 47 mg/dL (>or=40); Potassium 4.8 mmol/L (3.5-5.1); Sodium 141 mmol/L (136-145); Total Protein 7.3 g/dL (6.4-8.2)
== END 2025-06-10 11:37 | disposition home or self-care (01) ==
LOC: LBN 11:36
PROVIDERS: PCP Nurse Practitioner Family; Visit Provider Nurse Practitioner Family
DX: E78.5 Hyperlipidemia, unspecified (principal)
CPT/HCPCS: 80053; 80061